=== PATIENT | male | born 1955 | race Caucasian/White ===

== ENCOUNTER → 2018-08-19 | Outpatient (CLI) | payer OTHER ==
--- NOTE | 2018-08-20 07:45 | XR ---
EXAMINATION TYPE: XR knee complete RT DATE OF EXAM: 08/19/2018 CLINICAL HISTORY: Intermittent right knee pain TECHNIQUE: Three views of the right knee are obtained. COMPARISON: None. FINDINGS: There is no acute fracture/dislocation evident in right knee. Old healed fracture deformit y is seen of the proximal fibula. The tri-compartment joint spaces appear preserved although there is mild tibial plateau sclerosis of both the medial and lateral compartment. The overlying soft tissue appears unremarkable. IMPRESSION: There is no acute fracture or dislocation in the right knee. Very mild bicompartmental a rthropathy of the right knee.
== END ==
LOC: RADXRYALE 16:43
PROVIDERS: ATTEND Physician Assistant Medical
DX: M17.11 Unilateral primary osteoarthritis, right knee (principal)

== ENCOUNTER 2019-01-27 10:00 | Day surgery (SDC) | payer OTHER ==
[2019-01-27] MEDS ORDERED: ONDANSETRON 4 MG/2 ML VIAL IVP ONE (10:20)
[2019-01-27] MEDS ORDERED: HYDROmorphone 0.5 MG/0.5 ML SYRINGE IVP PRN (10:20)
[2019-01-27] MEDS ORDERED: MIDAZOLAM 2 MG/2 ML VIAL IV PRN (10:20)
[2019-01-27] MEDS ORDERED: LIDOCAINE 1% 20 ML VIAL (10MG/ML) FOR IV START INTRADERMA PRN (10:20)
[2019-01-27] MEDS ORDERED: SCOPOLAMINE 1.5MG/72HR PATCH TRANSDERM ONE (10:20)
[2019-01-27] MEDS ORDERED: LACTATED RINGERS 1,000 ML IV SCH (10:20)
[2019-01-27] MEDS ORDERED: DEXAMETHASONE SOD PHOSPHATE 10 MG/ML 1 ML VIAL IV ONE (10:20)
[2019-01-27 10:28] VITALS: RESP 16; TEMP 97.9
[2019-01-27 10:28] LABS: Glucose,Whole Blood 95 mg/dL (75-99)
[2019-01-27] MEDS ORDERED: HEPARIN SODIUM,PORCINE 5,000 UNIT/ML 1 ML VIAL SQ ONE (10:38)
--- NOTE | 2019-01-27 11:19 | P.GSHP ---
History of Present Illness H&P Date: 01/27/19 Chief Complaint: Right abdominal wall lipoma This is a 63-year-old male who presents today for excision of a right abdominal wall lipoma. The lipoma measures approximately 13 cm in diameter. It is located on his lateral right abdominal wall. Past Medical History Past Medical History: Diabetes Mellitus Additional Past Medical History / Comment(s): GOUT History of Any Multi-Drug Resistant Organisms: None Reported Past Surgical History: Tonsillectomy Additional Past Surgical History / Comment(s): VASECTOMY Past Anesthesia/Blood Transfusion Reactions: No Reported Reaction Past Psychological History: No Psychological Hx Reported Smoking Status: Former smoker Past Alcohol Use History: None Reported, Rare Past Drug Use History: None Reported Medications and Allergies Home Medications Medication Instructions Recorded Confirmed Type Atorvastatin [Lipitor] 20 mg PO DAILY 01/27/19 01/27/19 History Cholecalciferol [Vitamin D3 (25 3 tablet PO DAILY 01/27/19 01/27/19 History Mcg = 1000 Iu)] Lisinopril 20 mg PO DAILY 01/27/19 01/27/19 History Pioglitazone [Actos] 45 mg PO DAILY 01/27/19 01/27/19 History metFORMIN HCL 1 tab PO BID 01/27/19 01/27/19 History Allergies Allergy/AdvReac Type Severity Reaction Status Date / Time bee pollen Allergy Swelling Verified 01/27/19 10:18 nylon Allergy Swelling Verified 01/27/19 10:18 Surgical - Exam Vital Signs Temp Pulse Resp BP Pulse Ox 97.9 F 59 L 16 137/63 97 01/27/19 10:26 01/27/19 10:26 01/27/19 10:26 01/27/19 10:26 01/27/19 10:26 - General well developed, well nourished, no distress - Eyes PERRL - ENT normal pinna - Neck no masses - Respiratory normal expansion - Cardiovascular Rhythm: regular - Abdomen Abdomen: soft, non tender - Integumentary 13 cm abdominal wall lipoma located in the right lateral abdominal wall.
[2019-01-27] MEDS ORDERED: BUPIVACAINE (PF) 0.5% 30 ML VIAL SQ ONE ×2 (11:28→12:04)
[2019-01-27] MEDS ORDERED: MIDAZOLAM 2 MG/2 ML VIAL ONE (11:35)
[2019-01-27] MEDS ORDERED: fentaNYL (PF) 50 MCG/ML 2 ML AMP ONE (11:35)
[2019-01-27] MEDS ORDERED: KETAMINE 10 MG/ML 20 ML VIAL ONE (11:35)
[2019-01-27] MEDS ORDERED: PROPOFOL 10 MG/ML 20 ML VIAL IV ONE (11:35)
[2019-01-27] MEDS ORDERED: SODIUM CHLORIDE 0.9% 100 ML with ceFAZolin 2,000 MG IV ONE ×2 (11:42)
--- NOTE | 2019-01-27 12:23 | P.OP ---
Date of Procedure: 01/27/19 Preoperative Diagnosis: Abdominal wall lipoma Postoperative Diagnosis: W abdominal wall lipoma all lipoma Procedure(s) Performed: Excision of abdominal wall lipoma Anesthesia: KAMILLA Surgeon: Adalid Abbott Estimated Blood Loss (ml): 5 Pathology: none sent Condition: stable Disposition: PACU Description of Procedure: The patient's placed on the operative table in the lateral position. He received IV sedation. The lipoma measured prostate 15 cm diameter. The skin was anesthetized 1% local Xylocaine. Using a 15 blade the skin was incised. And then using left cautery and blunt dissection the lipoma was dissected free. The Bovie was used for hemostasis. A YANET drains placed through separate stab incision. Skin was closed terell. The drain secured with 2-0 nylon. The sterile dressing applied. Abdominal wall binder was applied. Patient top she will was sent to recovery in stable condition.
[2019-01-27 13:17] VITALS: BP 146/81; PULSE 75
== END 2019-01-27 13:30 | disposition home or self-care (01) ==
LOC: OR 10:00
PROVIDERS: ATTEND Surgery
DX: D17.1 Benign lipomatous neoplasm of skin and subcutaneous tissue of trunk (principal); E11.9 Type 2 diabetes mellitus without complications; M10.9 Gout, unspecified; Z79.899 Other long term (current) drug therapy; Z87.891 Personal history of nicotine dependence; Z91.030 Bee allergy status; Z91.048 Other nonmedicinal substance allergy status; I10 Essential (primary) hypertension; E78.5 Hyperlipidemia, unspecified; Z79.84 Long term (current) use of oral hypoglycemic drugs
CPT/HCPCS: 88304; 11406; J2250; J1644; J1100; J2405; J0690; J3010; J2704

== ENCOUNTER → 2021-04-08 | Outpatient (CLI) | payer MEDICARE, OTHER ==
--- NOTE | 2021-04-08 10:34 | XR ---
EXAMINATION TYPE: XR ribs bilat w pa chest xray DATE OF EXAM: 04/08/2021 COMPARISON: NONE HISTORY: Pain TECHNIQUE: Single view of the chest bilateral views of the ribs are submitted. FINDINGS: Mild pleural thickening noted on the right at the approximate sixth rib level. No Evidence for pneumothorax. No evidence for focal contusion. Mediastinal structures are midline. Evaluation of the ribs fails to demonstrate evidence for displaced rib fracture or secondary sign of rib fractur e. IMPRESSION: No displaced rib fracture identified.
== END | disposition home or self-care (01) ==
LOC: RADXRYALE 10:08
PROVIDERS: ATTEND Family Medicine
DX: R07.81 Pleurodynia (principal)
CPT/HCPCS: 71111

== ENCOUNTER → 2022-09-08 | Outpatient (CLI) | payer MEDICARE ==
--- NOTE | 2022-09-08 09:52 | XR ---
EXAMINATION TYPE: XR knee complete LT DATE OF EXAM: 09/08/2022 9:48 AM INDICATION: Patient age:Male; 67 years old; Reason for study: [id number] LT KNEE PAIN; [facility]. COMPARISON: None. TECHNIQUE: The Left knee(s) was examined in frontal, lateral, and oblique projections. FINDINGS: No evidence of any acute osseous pathology, joint space narrowing, soft tissue swelling, or joint effusion is noted. No significant osteophytosis. IMPRESSION: No acute osseous pathology.
== END | disposition home or self-care (01) ==
LOC: RADXRYALE 09:27
PROVIDERS: ATTEND Family Medicine
DX: M25.562 Pain in left knee (principal)

== ENCOUNTER → 2023-03-25 | Outpatient (CLI) | payer MEDICARE ==
--- NOTE | 2023-03-26 08:20 | CT ---
EXAMINATION TYPE: CT left knee - [facility] Protocol DATE OF EXAM: 03/25/2023 COMPARISON: X-ray 09/08/2022 HISTORY: osteoarthritis CT DLP: 2011 mGycm Technique: Axial, sagittal and coronal images are obtained. Findings: There is severe narrowing of the medial compartment knee joint. Mild narrowing lateral compartment. L arge suprapatellar bursal fluid collection. Cystic change involving the medial tibial plateau just ma rgin of the femoral condyle related small osteochondral or microtrabecular fractures. Vacuum changes within bilateral SI joint. Mild concentric narrowing of the hip joint. Tiny cystic tess nge involving the distal tibia likely postarthritic. Small osteochondral defect in the differential d iagnosis. There is subcutaneous varicosities. Diverticulosis colon. IMPRESSION: 1. Severe medial compartment osteoarthritis. Slight depression of the medial tibial plateau which an cystic changes involving the medial femoral condyle and the vasospastic enteritis. Correlate clinical ly to exclude microtrabecular fracture.
== END | disposition home or self-care (01) ==
LOC: RADCTMAIN 16:01
PROVIDERS: ATTEND Orthopaedic Surgery
DX: M17.12 Unilateral primary osteoarthritis, left knee (principal); K52.9 Noninfective gastroenteritis and colitis, unspecified

== ENCOUNTER → 2023-04-09 | Outpatient (CLI) | payer MEDICARE ==
[2023-04-09 11:10] LABS: Appearance,Urine Clear (Clear); Bilirubin,Urine Negative (Negative); Blood,Urine Negative (Negative); Color,Urine Light Yellow; Glucose,Urine (UA) Negative (Negative); Ketones,Urine Negative (Negative); Leukocyte Esterase,Urine Negative (Negative); Nitrite,Urine Negative (Negative); Protein,Urine Negative (Negative); Specific Gravity,Urine 1.019 (1.001-1.035); Urobilinogen,Urine <2.0 mg/dL (<2.0)
[2023-04-09 11:18] LABS: Partial Thromboplastin Time 25.1 sec (22.0-30.0); Prothrombin Time 10.6 sec (9.0-12.0)
[2023-04-09 16:24] LABS: ALT 19 U/L (10-49); AST 20 U/L (14-35); Albumin 4.6 d/dL (3.8-4.9); Albumin/Globulin Ratio 1.84 Ratio (1.60-3.17); Alkaline Phosphatase 66 U/L (41-126); Calcium 9.8 mg/dL (8.7-10.3); Carbon Dioxide 29.3 mmol/L (21.6-31.8); Chloride 100 mmol/L (96-109); Globulin 2.5 d/dL (1.6-3.3); Glucose 102 mg/dL (70-110); Potassium 4.2 mmol/L (3.5-5.5); Sodium 141 mmol/L (135-145); Total Bilirubin 0.4 mg/dL (0.3-1.2); Total Protein 7.1 d/dL (6.2-8.2)
[2023-04-09 16:48] LABS: HCT 41.5 % (39.6-50.0); HGB 13.2 d/dL (13.0-17.0); MCHC 31.8 d/dL (32.0-37.0); MCV 97.4 FL (80.0-97.0); Mean Platelet Volume 11.1 FL (9.5-12.2); NRBC Per 100 WBC 0 X 10*3/uL (0.00-0.01); Platelet Count 207 X 10*3/uL (140-440); RBC 4.26 X 10*6/uL (4.40-5.60); RDW 15.4 % (11.5-14.5)
== END | disposition home or self-care (01) ==
LOC: LABPAT 10:09
PROVIDERS: ATTEND Orthopaedic Surgery
DX: Z01.818 Encounter for other preprocedural examination (principal); E11.9 Type 2 diabetes mellitus without complications; M17.12 Unilateral primary osteoarthritis, left knee; R94.31 Abnormal electrocardiogram [ECG] [EKG]
CPT/HCPCS: 80053; 81003; 83036; 85027; 85610; 85730; 87070; 93005

== ENCOUNTER 2023-04-24 05:43 | Day surgery (SDC) | payer MEDICARE ==
[~2023-04-24 05:43] MED LIST: ceFAZolin 3 GM in SODIUM CHLORIDE 0.9% 100 ML IVPB PRN
[2023-04-24] MEDS ORDERED: LIDOCAINE 1% (10MG/ML) FOR IV START INTRADERMA PRN (05:48)
[2023-04-24] MEDS ORDERED: LACTATED RINGERS 1,000 ML IV SCH (05:48)
[2023-04-24] MEDS ORDERED: TRANEXAMIC 1,000 MG/100ML-NACL 1,000 MG in SALINE 1 100ML.BAG IV PRN (06:00)
[2023-04-24] MEDS ORDERED: ACETAMINOPHEN TAB 500 MG TAB PO PRN (06:00)
[2023-04-24] MEDS ORDERED: oxyCODONE ER 10 MG TAB.ER.12H PO PRN (06:00)
[2023-04-24] MEDS ORDERED: FAMOTIDINE 20 MG/2 ML VIAL IVP PRN (06:00)
[2023-04-24] MEDS ORDERED: TRANEXAMIC 1,000 MG/100ML-NACL 1,000 MG in SALINE 1 100ML.BAG IVPB PRN (06:00)
[2023-04-24] MEDS ORDERED: DEXAMETHASONE SOD PHOSPHATE 10 MG/ML 1 ML VIAL IV PRN (06:00)
[2023-04-24] MEDS ORDERED: ONDANSETRON 4 MG/2 ML VIAL IVP PRN (06:00)
[2023-04-24] MEDS ORDERED: DOCUSATE 100 MG CAP PO PRN (06:00)
[2023-04-24] MEDS ORDERED: KETOROLAC 15 MG/ML 1 ML VIAL IVP PRN (06:00)
[2023-04-24 06:42] LABS: Glucose,Whole Blood 112 mg/dL (70-110)
[2023-04-24] MEDS ORDERED: HYDROmorphone 0.5 MG/0.5 ML SYRINGE IVP PRN ×4 (07:00→09:43)
[2023-04-24] MEDS ORDERED: MIDAZOLAM 2 MG/2 ML VIAL IV PRN (07:00)
[2023-04-24] MEDS ORDERED: PHENYLEPHRINE-0.9% NACL SYG 1,000 MCG/10 ML SYRINGE ONE (07:04)
[2023-04-24] MEDS ORDERED: HYDROmorphone (PF) 1 MG/ML ONE (07:04)
[2023-04-24] MEDS ORDERED: ROCURONIUM 10 MG/ML (5 ML VIAL) IV ONE (07:04)
[2023-04-24] MEDS ORDERED: PROPOFOL 10 MG/ML 20 ML VIAL IV ONE (07:04)
[2023-04-24] MEDS ORDERED: SUCCINYLCHOLINE CHLORIDE 200 MG/10 ML VIAL IV ONE (07:04)
[2023-04-24] MEDS ORDERED: fentaNYL (PF) 50 MCG/ML 2 ML AMP ONE (07:04)
[2023-04-24] MEDS ORDERED: GLYCOPYRROLATE 0.2 MG/ML 2 ML VIAL ONE (07:04)
[2023-04-24] MEDS ORDERED: DEXAMETHASONE SOD PHOSPHATE 10 MG/ML 1 ML VIAL ONE (07:04)
[2023-04-24] MEDS ORDERED: NEOSTIGMINE 1 MG/ML 10 ML VIAL ONE (07:04)
[2023-04-24] MEDS ORDERED: LIDOCAINE 2% INJ 20 MG/ML (2 ML VIAL) ONE (07:04)
[2023-04-24] MEDS ORDERED: ROPIVACAINE 5 MG/ML 30 ML VIAL ONE (07:04)
[2023-04-24] MEDS: ROPIVACAINE/EPI/CLONIDINE/KET 50 ML SYRINGE MISCELLANE PRN ×2 (07:48→08:48)
[2023-04-24] MEDS ORDERED: hydrOXYzine pamoate 25 MG CAP PO PRN (09:43)
[2023-04-24] MEDS ORDERED: NALOXONE 0.4 MG/ML 1 ML VIAL IV PRN (09:43)
[2023-04-24] MEDS ORDERED: HYDROcodone/APAP 5-325MG 1 EACH TAB PO PRN ×2 (09:43)
--- NOTE | 2023-04-24 09:47 | P.OP ---
Date of Procedure: 04/24/23 Preoperative Diagnosis: 1. Severe left knee osteoarthritis 2. BMI 42.8, morbid obesity 3. Type 2 diabetes Postoperative Diagnosis: Same Procedure(s) Performed: 1. Left total knee arthroplasty 2. Computer-assisted musculoskeletal navigation using CT images 3. Application of negative pressure incisional wound VAC less than 50 cm, left knee, incision measuring 18 cm Implants: 1. Nora Triathlon CR Femur Size #5 2. Nora [employer]lon [place] Tibial Base Size #5 3. Nora Triathlon CS poly Size #5, 10-mm 4. [place] Triathlon all poly patella, Size #32 Anesthesia: GETA, regional Surgeon: Francisco Javier Penaloza [employer] Officer #1: Elliot Don Estimated Blood Loss (ml): 200 IV fluids (ml): 1,000 Pathology: none sent Condition: stable Disposition: PACU Indications for Procedure: I met with the patient preoperatively in the office setting and discussed treatment of their symptomatic knee arthritis. They failed a long course of nonsurgical treatment and elected to proceed with an elective total knee replacement. I discussed the potential risks and complications at length and gave them ample time to ask questions. Risks discussed included: risks from anesthesia, superficial site surgical infection, acute and/or chronic periprosthetic joint infection, delayed wound healing, drainage, wound necrosis, instability, stiffness, stiffness requiring manipulation and/or revision surgery, damage to local blood vessels or nerves, aseptic loosening of the implants, extensor mechanism issues including disruption, patellar maltracking, avascular necrosis etc., continued or worsened knee pain, generalized dissatisfaction with surgical outcome, need for revision surgery, an inability to regain preinjury level of function, DVT, PE, other medical complications, and possibly loss of life or limb. The patient voiced their understanding that while these are the most common complications other less common complications are possible. They provided both their verbal and written consent to go forward with surgery. Operative Findings: Severe full-thickness cartilage loss medial compartment and partial-thickness cartilage loss in the patellofemoral and lateral compartments Description of Procedure: The patient was identified in preoperative holding and the correct operative extremity was verified and marked with a marker. I reviewed the consent form with the patient at length. All of their questions were answered. The patient was given a block by anesthesia. They were then brought back to the operating room. They were transferred onto the operating room table where a general anesthetic, preoperative antibiotics, and tranexamic acid were administered by anesthesia. A tourniquet was applied to the proximal aspect of the operative extremity. The contralateral extremity was padded under the heel and secured to the operating room table with a nonsterile blue towel and tape. The ipsilateral arm was carefully draped across the patient's chest and secured with a pillow and foam. A post was applied over the lateral aspect of the ipsilateral thigh and a bolster was placed under the ipsilateral foot. I verified that the oper ative extremity was stable and the knee was flexed to 90. The operative extremity was then placed in a leg babcock, nonsterile drapes were applied, and the extremity was prepped and draped sterilely in the standard sterile fashion. Prior to starting surgery timeout was performed identifying the correct patient, operative extremity, and procedure. The leg was then elevated, exsanguinated with an Esmarch bandage, and the tourniquet was inflated. An anterior midline incision was made sharply with a scalpel. Once I had dissected deep to the superficial fascial layer medial and lateral flaps were elevated. A medial parapatellar arthrotomy was created. Upon opening the knee joint there were diffuse arthritic changes in all 3 compartments. The anterior horn of the medial meniscus were sharply released and a medial release was performed around the posterior medial corner of the knee to facilitate retractor placement. The fat pad was excised with electrocautery. The patella was found to be severely arthritic and a provisional cut was made with a sagittal saw to facilitate mobilization of the extensor mechanism during the procedure. Remnants of the ACL and PCL were then excised from the notch. 4 mm pins were then placed within the incision in the medial distal femur and proximal tibia. Arrays were applied to the pins and I verified they were completely tightened. The knee was then registered with the [employer] ([employer]) robot and manipulations in implant position were made to balance the knee and opitmize implant position. Using the [employer] ([employer]) robotic saw all cuts were made in accordance with our plan. After all bony fragments had been removed the cuts were verified with the planar probe. The tibia was then subluxed forward and sized. The knee was brought into flexion and a lamina tilt wall supervisor was placed to allow removal of the meniscal remnants both medially and laterally as well as posterior osteophytes. Local anesthetic was then infiltrated around the joint capsule. Trial implants were then placed within the knee. Range of motion and collateral ligament tension was then evaluated. Adjustments in implant size and position were then made accordingly. Once the knee was felt to be appropriately balanced the Edmond pins were removed. The patella was then recut, sized, and punched. A trial patellar button was then placed. With the trial components in place, the patella tracked midline. The femur was then drilled and the trial component removed. The trial tibial component was then appropriately rotated, pinned, and prepared for the keel. All trial components were then removed from the knee. The knee was thoroughly irrigated with pulsatile lavage. Cement was prepared via vacuum mixing in a bowl on the back table. I then hand pressurized cement into the femur and tibia and placed the implants beginning with the tibial base tray and poly liner, femoral component, and finally the patellar button. All extruded cement was removed including from the pin sites. Once the cement had hardened the knee was evaluated one final time with the final polyethylene liner in place. The knee had full extension and flexion and felt stable to varus and valgus stress throu ghout the arc of motion. The tourniquet was released and with the tourniquet down the patella tracked midline. All bleeders were controlled with electrocautery. The knee was then soaked for 3 minutes with a dilute Betadine soak. The knee was thoroughly irrigated using 3 L of sterile saline and pulsatile lavage. A deep drain was placed. The extensor mechanism was then reapproximated using pop off Vicryl sutures followed by a running barbed suture. The knee was then closed in layers with a 0 strata fix for the deep fascial layer, 2-0 strata fix for the superficial subcutaneous layer and Monocryl and Steri-Strips for the skin. A sterile dressing and drain sponge were applied. Due to the patient's body habitus I elected to use an incisional wound VAC which was applied over the closed incision. I verified that all instrument, sponge, and sharp counts were correct. The patient was then transferred off the operating room table, extubated, and brought to recovery having tolerated the procedure well. Elliot Don PA-C was required as a skilled library services assistant due to the complexity of the procedure for patient positioning, draping, retraction, placement of hardware, and closure of wound. PLAN: The patient can weight-bear as tolerated on the operative extremity. DVT prophylaxis with aspirin 81 mg twice a day based on preoperative risk stratification. Follow-up in the office in 2 weeks for wound check and x-rays of the knee including an AP and lateral.
[2023-04-24 09:49] LABS: Glucose,Whole Blood 213 mg/dL (70-110)
--- NOTE | 2023-04-24 10:17 | XR ---
EXAMINATION TYPE: XR knee limited LT DATE OF EXAM: 04/24/2023 CLINICAL HISTORY: Postoperative evaluation Two views of the left knee are submitted. Identified are changes of total knee arthroplasty with fem oral and tibial components appearing well seated. Postsurgical soft tissue changes are noted. Align ment is anatomic.
[2023-04-24] MEDS: LACTATED RINGERS 1,000 ML IV SCH ×2 (11:06→21:06)
[2023-04-24 11:25] LABS: Glucose,Whole Blood 191 mg/dL (70-110)
[2023-04-24] MEDS ORDERED: DEXTROSE 50% SYRINGE 50 ML IVP PRN ×2 (12:39)
--- NOTE | 2023-04-24 13:16 | P.ANPRN ---
Procedure Note - Anesthesia - Nerve Block Performed Left Adductor Canal Single Time Out Performed: Yes Date of Procedure: 04/24/23 Procedure Start Time: :43 Procedure Stop Time: 06:46 Location of Patient: PreOp Indication: Acute Post-Operative Pain, Requested by Surgeon Sedation Type: Sedate with meaningful contact maintained Preparation: Sterile Prep Position: Supine Needle Types: Pajunk Needle Gauge: 21 Ultrasound used to visualize needle placement: Yes Ultrasound used to observe medication spread: Yes Blood Aspirated: No Pain Paresthesia on Injection Noted: No Resistance on Injection: Normal Image Stored and Saved: Yes Events: Uneventful and Well Tolerated (Ropivacaine 0.5% 20 mL plus dexamethasone 4 mg)
--- NOTE | 2023-04-24 13:17 | P.ANPRN ---
Procedure Note - Anesthesia - Nerve Block Performed Left iPack Single Time Out Performed: Yes Date of Procedure: 04/24/23 Procedure Start Time: 06:47 Procedure Stop Time: 06:50 Location of Patient: PreOp Indication: Acute Post-Operative Pain, Requested by Surgeon Sedation Type: Sedate with meaningful contact maintained Preparation: Sterile Prep Position: Supine Needle Types: Pajunk Needle Gauge: 21 Ultrasound used to visualize needle placement: Yes Ultrasound used to observe medication spread: Yes Blood Aspirated: No Pain Paresthesia on Injection Noted: No Resistance on Injection: Normal Image Stored and Saved: Yes Events: Uneventful and Well Tolerated (Ropivacaine 0.5% 20 mL plus dexamethasone 4 mg)
--- NOTE | 2023-04-24 13:59 | P.CONS ---
History of Present Illness - Reason for Consult Consult date: 04/24/23 - History of Present Illness Patient is a 67-year-old male with history of hypertension, diabetes, dyslipidemia presenting for elective left knee arthroplasty. [facility] [place] [facility] has been consulted for medical management. Currently denies any chest pain, shortness of breath, abdominal pain, nausea, vomiting, urinary or bowel complaints. Does occasionally drink alcohol, denies any daily alcohol use. De nies smoking or illicit drug use. Pertinent positives and negatives as discussed in HPI, a complete review of systems was performed and all other systems are negative. Patient seen and examined at bedside. Vital signs reviewed General: nontoxic, no distress, appears at stated age, morbid obesity Derm: warm, dry, dressing clean, dry, intact Head: atraumatic, normocephalic, symmetric Eyes: EOMI, no lid lag, anicteric sclera, pupils equal round reactive to light ENT: Nose and ears atraumatic Neck: No thyromegaly, supple Mouth: no lip lesion, mucus membranes moist Cardiovascular: S1S2 reg, no murmur, no edema Lungs: clear to auscultation bilateral, no rhonchi, no rales, no wheeze, no accessory muscle use Abdominal: soft, nontender to palpation, no guarding, no appreciable organomegaly Ext: no gross muscle atrophy, muscle strength muscle strength 5 out of 5 in all 4 extremities, no contractures Neuro: CN II-XII grossly intact Psych: Alert, oriented, appropriate affect Assessment/Plan: Hypertension Dyslipidemia Type 2 diabetes Morbidly obese Status post left knee arthroplasty -Home medications reviewed and restarted -Diabetes medications held, started on sliding scale insulin -BMP and CBC pending for tomorrow -Pain control with oral [place], IV Dilaudid as needed -Okay to continue lactated Ringer -DVT prophylaxis: Aspirin 81 twice a day Thank you for allowing us to participate in the care of this pleasant patient. Do not hesitate to contact us with questions. Someone can be reached from the [facility] [place] [facility] hospitalist group all hours of the day at [phone] or via [employer]. Past Medical History Past Medical History: Diabetes Mellitus Additional Past Medical History / Comment(s): GOUT History of Any Multi-Drug Resistant Organisms: None Reported Past Surgical History: Joint Replacement, Orthopedic Surgery, Tonsillectomy Additional Past Surgical History / Comment(s): VASECTOMY, growth removed from rt thigh, left knee replacement Past Anesthesia/Blood Transfusion Reactions: No Reported Reaction Past Psychological History: No Psychological Hx Reported Smoking Status: Former smoker Past Alcohol Use History: None Reported Additional Past Alcohol Use History / Comment(s): quit 40 yrs ago Past Drug Use History: None Reported Medications and Allergies Home Medications Medication Instructions Recorded Confirmed Type Atorvastatin [Lipitor] 20 mg PO DAILY 01/27/19 04/22/23 History Cholecalciferol [Vitamin D3 (25 3 tablet PO DAILY 01/27/19 04/22/23 History Mcg = 1000 Iu)] Pioglitazone [Actos] 45 mg PO DAILY 01/27/19 04/22/23 History lisinopriL 20 mg PO DAILY 01/27/19 04/22/23 History metFORMIN HCL [Glucophage] 1 tab PO BID 01/27/19 04/22/23 History Meloxicam [Mobic] 15 mg PO DAILY 04/22/23 04/22/23 History Aspirin 81 mg PO BID 30 Days #60 tab 04/24/23 Rx Diclofenac Sodium [Voltaren] 75 mg PO BID 30 Days #60 tab 04/24/23 Rx Docusate [Colace] 100 mg PO BID #60 capsule 04/24/23 Rx Doxycycline Monohydrate 100 mg PO 14 #28 cap 04/24/23 Rx HYDROcodone/APAP 5-325MG [[place] 1 - 2 tab PO Q6HR PRN 7 Days #32 04/24/23 Rx 5-325] tab Omeprazole 40 mg PO DAILY 30 Days #30 cap 04/24/23 Rx Allergies Allergy/AdvReac Type Severity Reaction Status Date / Time bee pollen Allergy Swelling Verified 04/22/23 16:34 nylon Allergy Swelling Verified 04/22/23 16:34 Physical Exam Vitals: Vital Signs Temp Pulse Pulse Resp BP BP Pulse Ox 04/24/23 12:10 89 109/72 93 L 04/24/23 11:45 90 108/62 94 L 04/24/23 11:30 88 104/69 91 L 04/24/23 11:26 98.9 F 88 18 103/69 90 L 04/24/23 11:00 85 16 102/55 94 L 04/24/23 10:45 87 16 105/54 94 L 04/24/23 10:30 87 16 118/57 97 04/24/23 10:15 89 16 130/62 95 09/15/23 09:57 89 16 126/60 97 04/24/23 09:42 97.4 F L 112 H 16 156/78 94 L 04/24/23 06:50 80 16 122/61 97 04/24/23 06:07 97.4 F L 92 16 115/55 96 Intake and Output 04/23/23 04/24/23 04/24/23 22:59 06:59 14:59 Intake Total 200 800 Output Total 200 Balance 200 600 Intake: IV 200 800 Output: Estimated Blood Loss 200 Other: Weight 127.7 kg 127.7 kg Results Labs: Abnormal Lab Results - Last 24 Hours (Table) 04/24/23 04/24/23 04/24/23 Range/Units 06:24 09:48 11:22 POC Glucose (mg/dL) 112 H 213 H 191 H (70-110) mg/dL
[2023-04-24] MEDS: ceFAZolin 3 GM in SODIUM CHLORIDE 0.9% 100 ML IVPB SCH ×2 (15:04→22:16)
[2023-04-24 16:03] LABS: Glucose,Whole Blood 190 mg/dL (70-110)
[2023-04-24] MEDS: INSULIN ASPART (NovoLOG) 100 UNIT/ML VIAL SQ SCH ×2 (17:32→21:17)
[2023-04-24 20:48] LABS: Glucose,Whole Blood 173 mg/dL (70-110)
[2023-04-24] MEDS ORDERED: SENNOSIDES-DOCUSATE SODIUM 1 EACH TAB PO SCH (21:00)
[2023-04-24] MEDS: ASPIRIN 81 MG PO SCH (21:17)
[2023-04-24 22:47] VITALS: RESP 16
[2023-04-25] MEDS: LACTATED RINGERS 1,000 ML IV SCH (05:35)
[2023-04-25] MEDS: INSULIN ASPART (NovoLOG) 100 UNIT/ML VIAL SQ SCH (05:35)
[2023-04-25 05:41] LABS: Glucose,Whole Blood 133 mg/dL (70-110)
[2023-04-25 06:31] LABS: African American GFR (CKD) 86 (>60 ml/min/1.73 sqM); Anion Gap 8 mmol/L; Blood Urea Nitrogen 24 mg/dL (9-20); Calcium 9.1 mg/dL (8.4-10.2); Carbon Dioxide 28 mmol/L (22-30); Chloride 101 mmol/L (98-107); Glucose 123 mg/dL (74-99); Non-African American GFR(CKD) 74 (>60 ml/min/1.73 sqM); Potassium 4.4 mmol/L (3.5-5.1); Sodium 137 mmol/L (137-145)
[2023-04-25] MEDS: ASPIRIN 81 MG PO SCH (08:22)
[2023-04-25] MEDS ORDERED: CHOLECALCIFEROL 25 MCG (1000 IU) TABLET PO SCH (09:00)
[2023-04-25] MEDS ORDERED: ATORVASTATIN 20 MG TAB PO SCH (09:00)
[2023-04-25] MEDS ORDERED: lisinopriL 20 MG TAB PO SCH (09:00)
--- NOTE | 2023-04-25 09:06 | P.PN ---
Subjective Progress Note Date: 04/25/23 Patient did well overnight. He has some mild discomfort in his left knee this morning. He has been up several times to walk to the bathroom without too much difficulty. He denies chest pain or shortness of breath this morning. Objective - Vital Signs Vital signs: Vital Signs Temp 98.7 F 04/25/23 02:00 Pulse 91 04/25/23 02:00 Resp 16 04/25/23 02:00 BP 101/59 04/25/23 02:00 Pulse Ox 97 04/25/23 02:00 FiO2 Intake & Output 04/24/23 04/25/23 04/25/23 18:59 06:59 18:59 Intake Total 1700 Output Total 200 130 Balance 1500 -130 Weight 127.7 kg Intake: IV 800 Intake, IV Titration 900 Amount Lactated Ringers 1,000 ml 800 @ 100 mls/hr IV .Q10H SITA Rx#:[id number] ceFAZolin 3 gm In Sodium 100 Chloride 0.9% 100 ml @ 200 mls/hr IVPB Q8H S[facility] Rx#:[id number] Output: Drainage 130 Left Knee 130 Estimated Blood Loss 200 Other: # Voids 3 - Exam The patient is resting comfortably in his bed. He is alert and able to answer questions. A focused exam of the left lower extremity was conducted. There is an incisional wound VAC over the anterior aspect of the knee with good seal. His drain was removed without difficulty. His thigh and calf are minimally tender and soft. He is able to fire his femoral nerve. Distally motor and sensory function are intact in the left foot. The foot is warm and well perfused with brisk capillary refill - Labs CBC & Chem 7: 04/25/23 05:24 Labs: Abnormal Lab Results - Last 24 Hours (Table) 04/24/23 04/24/23 04/24/23 Range/Units 09:48 11:22 16:01 BUN (9-20) mg/dL Glucose (74-99) mg/dL POC Glucose (mg/dL) 213 H 191 H 190 H (70-110) mg/dL 04/24/23 04/25/23 04/25/23 Range/Units 20:47 05:24 05:34 BUN 24 H (9-20) mg/dL Glucose 123 H (74-99) mg/dL POC Glucose (mg/dL) 173 H 133 H (70-110) mg/dL Assessment and Plan Assessment: Postoperative day #1 status post left total knee arthroplasty and incisional wound VAC placement Type 2 diabetes Morbid obesity with BMI 42.8 Plan: 1. Weight-bear as tolerated left lower extremity, up with assistance 2. DVT prophylaxis with aspirin 81 mg twice a day 4 weeks 3. Doses of postoperative antibiotics followed by 2 weeks of doxycycline 100 mg twice a day due to patient's body habitus and type 2 diabetes 4. Appreciate internal medicine's assistant department manager with perioperative medical management 5. Physical therapy 6. Dispo: Discharge home later today when passes physical therapy and pain is controlled
--- NOTE | 2023-04-25 09:08 | P.DS ---
Providers Date of admission: 04/24/2023 Attending physician: Francisco Javier Penaloza Consults: 04/24/23 09:43 Consult Physician Routine Consulting Provider: Korin Proctor Consult Reason/Comments: medical management Do you want consulting provider notified?: Yes [facility] Course: The patient is a very pleasant 67-year-old male who was admitted under my care yesterday. He underwent an uncomplicated total knee replacement and was then admitted to the orthopedic floor. He was transitioned from IV to oral pain medication. He was given 2 doses of postoperative antibiotics for surgical prophylaxis. He was treated with aspirin 81 mg twice a day for DVT prophylaxis. He was seen and evaluated by internal medicine. He worked with physical therapy. He was ultimately discharged home on postoperative day #1. Plan - Discharge Summary Discharge Rx Participant: No New Discharge Prescriptions: New HYDROcodone/APAP 5-325MG [[place] 5-325] 1 - 2 tab PO Q6HR PRN 7 Days #32 tab PRN Reason: Pain Diclofenac Sodium [Voltaren] 75 mg PO BID 30 Days #60 tab Doxycycline Monohydrate 100 mg PO 14 #28 cap Aspirin 81 mg PO BID 30 Days #60 tab Docusate [Colace] 100 mg PO BID #60 capsule Omeprazole 40 mg PO DAILY 30 Days #30 cap No Action lisinopriL 20 mg PO DAILY Atorvastatin [Lipitor] 20 mg PO DAILY Pioglitazone [Actos] 45 mg PO DAILY metFORMIN HCL [Glucophage] 1 tab PO BID Cholecalciferol [Vitamin D3 (25 Mcg = 1000 Iu)] 3 tablet PO DAILY Meloxicam [Mobic] 15 mg PO DAILY Discharge Medication List Atorvastatin [Lipitor] 20 mg PO DAILY 01/27/19 [History] Cholecalciferol [Vitamin D3 (25 Mcg = 1000 Iu)] 3 tablet PO DAILY 01/27/19 [History] Pioglitazone [Actos] 45 mg PO DAILY 01/27/19 [History] lisinopriL 20 mg PO DAILY 01/27/19 [History] metFORMIN HCL [Glucophage] 1 tab PO BID 01/27/19 [History] Meloxicam [Mobic] 15 mg PO DAILY 04/22/23 [History] Aspirin 81 mg PO BID 30 Days #60 tab 04/24/23 [Rx] Diclofenac Sodium [Voltaren] 75 mg PO BID 30 Days #60 tab 04/24/23 [Rx] Docusate [Colace] 100 mg PO BID #60 capsule 04/24/23 [Rx] Doxycycline Monohydrate 100 mg PO 14 #28 cap 04/24/23 [Rx] HYDROcodone/APAP 5-325MG [[place] 5-325] 1 - 2 tab PO Q6HR PRN 7 Days #32 tab 04/24/23 [Rx] Omeprazole 40 mg PO DAILY 30 Days #30 cap 04/24/23 [Rx] Follow up Appointment(s)/Referral(s): Residential Home[facility] [NON-STAFF] - 1-2 Days Francisco Javier Penaloza MD [Medical Doctor] - 2 Weeks Patient Instructions/Handouts: Knee Replacement (DC) Activity/Diet/Wound Care/Special Instructions: Weight bear to tolerance on operative extremity with a walker. Keep Prevena wound vac in place. Do not remove. Call the office with any questions regarding the wound vac. Take pain medications as needed. Take aspirin 81mg BID x 4 weeks for blood clot prevention.Take antibiotics as prescribed. Follow-up in the office in two weeks at [facility]. Call the office with any questions or concerns, Discharge Disposition: HOME WITH HOME HEALTH SERVICES
[2023-04-25 10:29] VITALS: BP 116/72; PULSE 77; TEMP 97.5
[2023-04-25 11:22] LABS: Basophils # (A) 0.03 X 10*3/uL (0.00-0.10); Basophils % (A) 0.2 %; Eosinophils # (A) 0.01 X 10*3/uL (0.04-0.35); Eosinophils % (A) 0.1 %; HCT 35.3 % (39.6-50.0); HGB 11.1 d/dL (13.0-17.0); Lymphocytes # (A) 1.17 X 10*3/uL (0.90-5.00); Lymphocytes % (A) 7.4 %; MCH 31.2 pg (27.0-32.0); MCHC 31.4 d/dL (32.0-37.0); MCV 99.2 FL (80.0-97.0); Monocytes # (A) 1.37 X 10*3/uL (0.20-1.00); Monocytes % (A) 8.7 %; NRBC Per 100 WBC 0 X 10*3/uL (0.00-0.01); Neutrophils # (A) 13.02 X 10*3/uL (1.80-7.70); Neutrophils % (A) 82.8 %; Platelet Count 220 X 10*3/uL (140-440); RBC 3.56 X 10*6/uL (4.40-5.60); RDW 14.6 % (11.5-14.5); WBC 15.73 X 10*3/uL (4.50-10.00)
[2023-04-25 11:45] LABS: Glucose,Whole Blood 118 mg/dL (70-110)
--- NOTE | 2023-04-25 13:44 | P.PN ---
Subjective Progress Note Date: 04/25/23 Hospital course: Patient is a very pleasant 67-year-old male with a past medical history of hypertension,type II spy-pvvsixh-jsfprixox diabetes mellitus, and hyperlipidemia. He is currently admitted under orthopedic surgery team status post elective left total knee arthroplasty completed by Dr. Penaloza on 04/24/23. We were consulted for medical management throughout patient's hospitalization. Physical exam: Vital signs reviewed and stable. General: Nontoxic, no distress and appears stated age. Derm: Skin warm and dry, normal coloration for ethnicity. Head: Atraumatic, normocephalic and symmetric. Eyes: EOMs intact, no lid lag, and anicteric sclera Mouth: no lip lesions, mucus membranes moist Cardiovascular: regular rate and rhythm with normal S1S2, no murmur, positive posterior tibial pulses bilaterally, and cap refill < 2 seconds. Lungs: Respirations even, regular, and unlabored on room air. Lungs CTA bilaterally, no rhonchi, no rales, no wheezing, and no accessory muscle usage. Abdominal: soft, nontender to palpation, no guarding, no appreciable organome ella Ext: No gross muscle atrophy, no edema, no contractures. Movement and sensation intact. Left knee postoperative dressing/Mckay wrap Neuro: Speech clear, face symmetrical and CN II-XII grossly intact with no noted focal neuro deficits Psych: Alert and oriented to person, place, time, and situation. Appropriate and pleasant affect. Assessment and Plan of Care: Acute Postoperative blood loss anemia Postoperative leukocytosis, reactive -Stable expected finding. Current hemoglobin of 11.1 with preoperative hemoglobin of 13.2. WBC count 15.73, reactive, no signs of infection. -No active bleeding noted, no need for transfusion or additional interventions or testing at this time. Status post left total knee arthroplasty -Management per primary admitting orthopedic surgery team including DVT prophylaxis, pain management, weightbearing, wound/dressing care, and PT/OT. Prerenal azotemia -BUN 24, likely secondary to mild dehydration as patient was nothing by mouth prior to surgical procedure. Patient eating and drinking well at this time, no need for further intervention. Hypertension Patient to continue daily medication regimen with lisinopril 20 mg daily. Hyperlipidemia Patient to continue with atorvastatin 20 mg daily. Type II sno-kfnrtzd-vfwszqkam diabetes mellitus. Hemoglobin A1c 6.2%. Patient to continue on glycemic protocol NovoLog sliding scale throughout hospitalization and to resume metformin and Pioglitazone upon discharge. Data review: Postoperative labs reviewed. CBC showing mild leukocytosis with WBC count of 15.73 and macrocytic anemia with hemoglobin of 11.1. BMP unremarkable with the exception of slightly elevated BUN of 24. Hemoglobin A1c 6.2%. Vital signs reviewed and stable. Blood pressure 116/72, heart rate 77, respiratory rate 16, temp 97.5F, SpO2 of 95% on room air. Patient cleared from medical perspective for discharge once cleared by primary admitting orthopedic surgery team. Thank you for allowing us to participate in the care of this pleasant patient. Do not hesitate to contact us with questions. Someone can be reached from the [facility] hospitalist group all hours of the day at [phone] or via [employer]. Patient was seen independently by Nurse Pracitioner. This document was prepared using [employer] dictation software. Please allow for errors in clinic cma, while rare they do occur. Objective - Vital Signs Vital signs: Vital Signs Temp 98.7 F 04/25/23 02:00 Pulse 91 04/25/23 02:00 Resp 16 04/25/23 02:00 BP 101/59 04/25/23 02:00 Pulse Ox 97 04/25/23 02:00 FiO2 Intake & Output 04/24/23 04/25/23 04/25/23 18:59 06:59 18:59 Intake Total 1700 Output Total 200 130 Balance 1500 -130 Weight 127.7 kg Intake: IV 800 Intake, IV Titration 900 Amount Lactated Ringers 1,000 ml 800 @ 100 mls/hr IV .Q10H SITA Rx#:[id number] ceFAZolin 3 gm In Sodium 100 Chloride 0.9% 100 ml @ 200 mls/hr IVPB Q8H SITA Rx#:[id number] Output: Drainage 130 Left Knee 130 Estimated Blood Loss 200 Other: # Voids 3 - Labs CBC & Chem 7: 04/25/23 05:24 04/25/23 05:24 Labs: Abnormal Lab Results - Last 24 Hours (Table) 04/24/23 04/24/23 04/24/23 Range/Units 09:48 11:22 16:01 BUN (9-20) mg/dL Glucose (74-99) mg/dL POC Glucose (mg/dL) 213 H 191 H 190 H (70-110) mg/dL 04/24/23 04/25/23 04/25/23 Range/Units 20:47 05:24 05:34 BUN 24 H (9-20) mg/dL Glucose 123 H (74-99) mg/dL POC Glucose (mg/dL) 173 H 133 H (70-110) mg/dL
== END 2023-04-25 13:51 | disposition home health service (06) ==
LOC: OR 05:43 → 4SSUR 09:02 → OR 04-25 13:51
PROVIDERS: ATTEND Orthopaedic Surgery
DX: M17.12 Unilateral primary osteoarthritis, left knee (principal); E66.01 Morbid (severe) obesity due to excess calories; E11.9 Type 2 diabetes mellitus without complications; E78.5 Hyperlipidemia, unspecified; I10 Essential (primary) hypertension; Z68.41 Body mass index [BMI] 40.0-44.9, adult; Z79.1 Long term (current) use of non-steroidal anti-inflammatories (NSAID); Z79.82 Long term (current) use of aspirin; Z79.84 Long term (current) use of oral hypoglycemic drugs; Z79.899 Other long term (current) drug therapy; Z87.891 Personal history of nicotine dependence; Z91.030 Bee allergy status; Z88.8 Allergy status to other drugs, medicaments and biological substances; Z96.652 Presence of left artificial knee joint
CPT/HCPCS: 0055T; 27447; 64447; 64999; 80048; 83036; 85025; 94760

== ENCOUNTER → 2023-09-08 | Outpatient (CLI) | payer OTHER ==
[2023-09-08 22:40] LABS: Appearance,BF Cloudy; Color,BF Pink; Nucleated Cells, Body Fluid 75000 /uL; RBC, Body Fluid 31500 /uL
[2023-09-08 22:43] LABS: Mononuclear WBC,Body Fluid 5 %; Polynuclear WBC,Body Fluid 95 %; Total Cells Counted,Body Fluid 100
== END | disposition home or self-care (01) ==
LOC: LABWHC1 15:16
PROVIDERS: ATTEND Orthopaedic Surgery
DX: M25.562 Pain in left knee (principal); M10.9 Gout, unspecified; M25.462 Effusion, left knee; T84.84XA Pain due to internal orthopedic prosthetic devices, implants and grafts, initial encounter; Z47.1 Aftercare following joint replacement surgery; Z96.652 Presence of left artificial knee joint
CPT/HCPCS: 36415; 85652; 86140; 87070; 87075; 87205; 89050

== ENCOUNTER → 2023-09-21 | Outpatient (CLI) | payer MEDICARE ==
[2023-09-21 12:10] LABS: INR 1.3 (<1.2); Prothrombin Time 13.5 sec (10.0-12.5)
[2023-09-21 15:52] LABS: BUN/Creat Ratio 18.64 Ratio (12.00-20.00); Blood Urea Nitrogen 20.5 mg/dL (9.0-27.0); Carbon Dioxide 29.7 mmol/L (21.6-31.8); Chloride 98 mmol/L (96-109); Glucose 103 mg/dL (70-110); Potassium 4.9 mmol/L (3.5-5.5); Sodium 140 mmol/L (135-145)
[2023-09-21 15:53] LABS: ALT 19 U/L (10-49); AST 18 U/L (14-35); Albumin 4.1 g/dL (3.8-4.9); Albumin/Globulin Ratio 1.17 Ratio (1.60-3.17); Alkaline Phosphatase 118 U/L (41-126); Calcium 10.3 mg/dL (8.7-10.3); Globulin 3.5 g/dL (1.6-3.3); Total Bilirubin 0.3 mg/dL (0.3-1.2); Total Protein 7.6 g/dL (6.2-8.2)
[2023-09-21 16:18] LABS: HGB 11.4 g/dL (13.0-17.0); MCH 28.6 pg (27.0-32.0); MCHC 31.7 g/dL (32.0-37.0); MCV 90.5 FL (80.0-97.0); Mean Platelet Volume 9.7 FL (9.5-12.2); NRBC Per 100 WBC 0 X 10*3/uL (0.00-0.01); Platelet Count 375 X 10*3/uL (140-440); RBC 3.98 X 10*6/uL (4.40-5.60); RDW 14.5 % (11.5-14.5); WBC 8.28 X 10*3/uL (4.50-10.00)
== END | disposition home or self-care (01) ==
LOC: LABPAT 10:41
PROVIDERS: ATTEND Orthopaedic Surgery
DX: Z01.812 Encounter for preprocedural laboratory examination (principal); Z22.322 Carrier or suspected carrier of Methicillin resistant Staphylococcus aureus; M25.562 Pain in left knee; Z96.652 Presence of left artificial knee joint; R94.31 Abnormal electrocardiogram [ECG] [EKG]
CPT/HCPCS: 80053; 83036; 85027; 85610; 85730; 87070; 93005

== ENCOUNTER 2023-10-07 16:00 | Inpatient (IN) | payer MEDICARE ==
[2023-10-02 15:13] VITALS: BMI 42.0
[2023-10-08] MEDS ORDERED: ROPIVACAINE/EPI/CLONIDINE/KET 50 ML SYRINGE MISCELLANE PRN (05:00)
[2023-10-08] MEDS ORDERED: LIDOCAINE 1% (10MG/ML) FOR IV START INTRADERMA PRN (05:13)
[2023-10-08] MEDS ORDERED: TRANEXAMIC 1,000 MG/100ML-NACL 1,000 MG in SALINE 1 100ML.BAG IV PRN (06:00)
[2023-10-08] MEDS ORDERED: ONDANSETRON 4 MG/2 ML VIAL IVP PRN (06:00)
[2023-10-08] MEDS ORDERED: TRANEXAMIC 1,000 MG/100ML-NACL 1,000 MG in SALINE 1 100ML.BAG IVPB PRN (06:00)
[2023-10-08] MEDS: LACTATED RINGERS 1,000 ML IV ONE ×3 (06:20→12:00)
[2023-10-08 06:52] LABS: Glucose,Whole Blood 116 mg/dL (70-110)
[2023-10-08] MEDS ORDERED: HYDROmorphone 0.5 MG/0.5 ML SYRINGE IVP PRN ×3 (07:00→10:52)
[2023-10-08] MEDS ORDERED: MIDAZOLAM 2 MG/2 ML VIAL IV PRN (07:00)
[2023-10-08] MEDS: ONDANSETRON 4 MG/2 ML VIAL IVP ONE (07:01)
[2023-10-08] MEDS: oxyCODONE ER 10 MG TAB.ER.12H PO PRN (07:01)
[2023-10-08] MEDS: KETOROLAC 15 MG/ML 1 ML VIAL IVP PRN (07:01)
[2023-10-08] MEDS: DEXAMETHASONE SOD PHOSPHATE 10 MG/ML 1 ML VIAL IV PRN (07:01)
[2023-10-08] MEDS: ACETAMINOPHEN TAB 500 MG TAB PO PRN (07:01)
[2023-10-08] MEDS: DOCUSATE 100 MG CAP PO PRN (07:01)
[2023-10-08] MEDS: MIDAZOLAM 2 MG/2 ML VIAL IVP ONE (07:08)
[2023-10-08] MEDS: FAMOTIDINE 20 MG/2 ML VIAL IVP PRN (07:17)
[2023-10-08] MEDS ORDERED: fentaNYL (PF) 50 MCG/ML 2 ML AMP ONE (07:24)
[2023-10-08] MEDS ORDERED: GLYCOPYRROLATE 0.2 MG/ML 2 ML VIAL ONE (07:24)
[2023-10-08] MEDS ORDERED: ROCURONIUM 10 MG/ML (5 ML VIAL) IV ONE (07:24)
[2023-10-08] MEDS ORDERED: LIDOCAINE 1% INJ 10MG/ML (20 ML MDV) ONE (07:24)
[2023-10-08] MEDS ORDERED: NEOSTIGMINE 1 MG/ML 10 ML VIAL ONE (07:24)
[2023-10-08] MEDS ORDERED: DEXAMETHASONE SOD PHOSPHATE 4 MG/ML 1 ML VIAL ONE (07:24)
[2023-10-08] MEDS ORDERED: SUCCINYLCHOLINE CHLORIDE 200 MG/10 ML VIAL IV ONE (07:24)
[2023-10-08] MEDS ORDERED: TRANEXAMIC 1,000 MG/100ML-NACL PREMIX BAG ONE (07:24)
[2023-10-08] MEDS ORDERED: HYDROmorphone (PF) 1 MG/ML ONE (07:24)
[2023-10-08] MEDS ORDERED: PROPOFOL 10 MG/ML 20 ML VIAL IV ONE (07:24)
[2023-10-08] MEDS ORDERED: PHENYLEPHRINE-0.9% NACL SYG 1,000 MCG/10 ML SYRINGE ONE (07:24)
[2023-10-08] MEDS ORDERED: ROPIVACAINE 5 MG/ML 30 ML VIAL ONE (07:24)
[2023-10-08] MEDS: ceFAZolin 3 GM in SODIUM CHLORIDE 0.9% 100 ML IVPB PRN (07:29)
[2023-10-08] MEDS: VANCOMYCIN 1,000 MG VIAL MISCELLANE ONE (08:49)
[2023-10-08] MEDS: TOBRAMYCIN SULFATE 1.2 GM VIAL MISCELLANE ONE (09:47)
[2023-10-08] MEDS ORDERED: MAGNESIUM HYDROXIDE 2,400 MG/30 ML CUP PO PRN (10:52)
[2023-10-08] MEDS ORDERED: NA PHOS,M-B/NA PHOS,DI-BA 133 ML ENEMA RECTAL PRN (10:52)
[2023-10-08] MEDS ORDERED: bisacodyL 10 MG SUPP RECTAL PRN (10:52)
[2023-10-08] MEDS ORDERED: TEMAZEPAM 15 MG CAP PO PRN (10:52)
[2023-10-08] MEDS ORDERED: NALOXONE 0.4 MG/ML 1 ML VIAL IV PRN (10:52)
[2023-10-08] MEDS ORDERED: VANCOMYCIN IV PER PHARMACY 1 EACH MISC MISCELLANE PRN (10:57)
--- NOTE | 2023-10-08 11:06 | P.OP ---
Date of Procedure: 10/08/23 Preoperative Diagnosis: 1. Left chronic periprosthetic knee infection 2. BMI 41.7 3. Type 2 diabetes Postoperative Diagnosis: Same Procedure(s) Performed: 1. Manual preparation and insertion of drug delivery device, intra-articular, articulating spacer, left knee 2. Irrigation and excisional debridement using a scalpel of subcutaneous tissue, muscle, and bone and thigh and knee with radical synovectomy and 12 L saline pulsatile mechanical lavage 3. Application of negative pressure dressing, less than 50 cm, left knee, incision measuring 20 cm Modifier 22 for increased procedural complexity: Justification: This operation required significantly more time, work, and procedural complexity than a standard primary or revision total joint arthroplasty. Specifically the prior traumatic changes and or surgical procedure left a significantly altered surgical field with resultant scar tissue, adhesions, and altered anatomy that required a longer and more difficult and complex surgical dissection. This patient required: Extensile exposure requiring meticulous and extensive debridement due to prior failed surgery and contractures Technically demanding removal of prior hardware Significantly prolonged operative time Increased BMI (41.7) and challenging body habitus All of the above result in a physically and mentally challenging operative procedure that in my professional opinion necessitates a 30% increase above standard the schedule Implants: Nora triathlon size #5 PS femur [place] triathlon 13 mm TS poly Anesthesia: KAMILLA regional Surgeon: Francisco Javier Penaloza Finish Specialist #1: Solange Dang Estimated Blood Loss (ml): 200 IV fluids (ml): 600 Urine output (ml): 100 Pathology: other (Deep tissue and fluid cultures taken) Condition: stable Disposition: PACU Indications for Procedure: The patient is a very pleasant 68-year-old male who recently underwent a left total knee replacement. He did well initially both clinically and radiographica lly. His incision was well-healed with no sign of early infection or drainage. Several months ago he sustained a fall and has had increasing pain in his knee since that time. He presented to my office several weeks ago and was found to have a large effusion and a red swollen knee. His knee was aspirated and sent for cultures and cell count. His cell count came back with 75,000 white blood cells with a predominance of PMNs and his cultures grew staph epi. His inflammatory markers including sedimentation rate and CRP were both elevated. The fluid appeared purulent. Given all of this and based on his MSIS score his knee was considered infected. I discussed treatment options with the patient and his including a DAIR procedure, one-stage revision and two-stage revision. Given the length of time from surgery, the gross purulence aspirated and the patient's overall health my recommendation was for a two-stage revision. I discussed the procedure at length with both the patient and his in the office. Had a long discussion on the potential risks and complications including but not limited to risks from anesthesia, continued or worsened infection, failure of procedure requiring additional spacer placement, need for a static spacer, systemic infection, fracture, dislocation, stiffness, delayed wound healing, medical complications, failure of all above treatment requiring either an amputation or fusion and possibly . The patient and his understand these complications. They provided both her verbal and written consent to go forward with surgery. Operative Findings: It was gross purulence within the knee. All implants were well fixed. Multiple cultures were taken. Description of Procedure: The patient was identified in preoperative holding and the correct left leg was marked with my initials. I reviewed the consent form with the patient and his . All of their questions were answered. He was then brought back to the operating room by anesthesia. He was positioned on the OR table where a general anesthetic, preoperative antibiotics, and tranexamic acid were given. He also had a Knutson catheter placed. A tourniquet was applied to the proximal aspect of the left leg. Nonsterile drapes were applied. A presurgical prepped with chlorhexidine scrub brush was performed. The left leg was then prepped and draped in the standard sterile fashion. Prior to starting surgery timeout was performed identifying the correct patient, operative extremity, and procedure. The patient's leg was then elevated, exsanguinated and the tourniquet was inflated to 250 mmHg. I began by outlining the prior scar over the anterior aspect of the knee. Skin incision was made with a scalpel and dissection was carried out proximally 1 cm proximal to the scar to identify normal tissue planes. I then elevated subfascial flaps carefully. A medial parapatellar arthrotomy was created. There was a small amount of purulence within the knee which was swabbed and sent for culture. At this point I performed an extensive debridement of the knee. Due to the patient's BMI of 41.7, prior knee replacement, and scarring from the infection this was extremely tedious and took extensive time. I very carefully developed both the medial and lateral gutters debriding nonviable and obviously infected tissue. An extensive synovectomy was performed using electrocautery. Once a thorough synovectomy and debridement was performed I proceeded to remove the polyethylene liner. An carefully exposed the femur and used both reciprocating and sagittal saws to break the interface between implant and cement around the femoral component. Once I had done this I carefully tapped the femur loose with a bone tamp and mallet. There was minimal bone loss. Attention was then turned to the tibia. I exposed around the posterior medial corner of the tibia and then subluxed the tibia forward. I again used a [place] of sagittal and reciprocating saws to break the cement interface between the implant and cement mantle. With the knee in extension I used a bone tamp and mallet to deep on the tibial implant from the tibia. I then flexed the knee and carefully removed the tibial component without inadvertently damaging the femoral condyles. There was minimal bone loss on the tibia. I then used a pneumatic bur to break through the cement pedestal in the tibia. I then used cement removal devices and a pneumatic bur to completely remove all cement within the tibia. I then returned my attention to the patellar component which was circumferentially exposed and then carefully removed with a sagittal saw. I used a pneumatic bur to remove the lugs from their holes. At this point I did a second look debridement including in the posterior capsule of the knee. Once the knee was felt to be adequately debrided the joint was soaked for 3 minutes with a dilute Betadine rinse. It was then irrigated with 3 L of sterile saline. The knee was then soaked with a dilute chlorhexidine rinse for 3 minutes. It was then rinsed and irrigated with 3 L of sterile saline. A cutting guide for a posterior stabilized implant was placed, pinned and cuts were made. I then trialed and was happy with the overall balance of the knee. At this point all attendants scrubbed and changed gloves. Implants were dispensed on the back table. 2 bags of antibiotics were mixed with 8 g of vancomycin and 2 g of tobramycin. A dowel was made for cement and attached to the polyethylene liner and augments were crudely fashioned on the femoral implant based on trialing. Was allowed to fully set. An additional 2 bags of antibiotics with pre-added tobramycin and additional 8 g of vancomycin and 2 g of tobramycin were mixed. The tourniquet was let down and the tibial polyliner and dowel and femoral component were loosely cemented into place. This was allowed to harden with the knee in extension. The wound was then thoroughly irrigated with 3 L of sterile saline using pulsatile lavage. The wound was then closed in layers using all monofilament suture. An incisional wound VAC was applied over the closed inci ny. The drapes were taken down and the knee was wrapped both with web roll and an Mckay wrap. A knee immobilizer was then placed. The patient was awoken from his anesthesia, [facility], his Knutson catheter was removed, and he was brought to recovery having tolerated the procedure well. Solange Dang PA-C was required as a skilled assistant import manager for patient positioning, draping, retraction, exposure, removal of implants, placement of new implants, closure of wound, and application of dressing. Plan: The patient can weight-bear as tolerated on his left leg in a knee immobilizer. He'll be started on IV antibiotics and a formal infectious disease consultation has been placed. He will need a PICC line and at least 6 weeks of IV antibiotics. We will follow cultures but his preoperative cultures grew methicillin sensitive staph epi. Internal medicine was also been consulted for perioperative medical management. DVT prophylaxis with aspirin 81 mg twice a day.
[2023-10-08 12:35] LABS: Glucose,Whole Blood 179 mg/dL (70-110)
[2023-10-08] MEDS: DEXAMETHASONE SOD PHOSPHATE 4 MG/ML 1 ML VIAL IV ONE (13:25)
[2023-10-08] MEDS: LACTATED RINGERS 1,000 ML IV SCH ×2 (13:25→17:10)
[2023-10-08] MEDS: HYDROmorphone 0.5 MG/0.5 ML SYRINGE IVP PRN (13:45)
--- NOTE | 2023-10-08 14:36 | XR ---
EXAMINATION TYPE: XR knee limited LT DATE OF EXAM: 10/08/2023 COMPARISON: NONE HISTORY: 68-year-old male postoperative assessment TECHNIQUE: 2 views FINDINGS: Redemonstrated left total knee arthroplasty with interval removal of the tibial tray compon ent and placement of cemented component. Alignment grossly anatomic. There is new, cemented distal fe moral component also noted. There may be some cement extruding from the anterior lateral aspect of th e femoral component. Anterior soft tissue swelling with scattered soft tissue air as well as intra-ar ticular air related to recent operation. IMPRESSION: 1. Revision knee arthroplasty with placement of a cemented distal femoral component. There is some ce ment projecting beyond the bone along the anterolateral margin of the femoral component on both views . Clinically correlate. 2. Replacement of the tibial tray component with antibiotic impregnated cement. 3. Alignment grossly anatomic. No periprosthetic fracture seen.
[2023-10-08] MEDS: VANCOMYCIN 1,750 MG in SODIUM CHLORIDE 0.9% 500 ML 500 ML IVPB SCH (16:23)
[2023-10-08] MEDS ORDERED: DEXTROSE 50% SYRINGE 50 ML IVP PRN ×2 (16:33)
--- NOTE | 2023-10-08 16:35 | P.CONS ---
History of Present Illness - Reason for Consult Consult date: 10/08/23 - History of Present Illness 68 year old M with PMH hypertension, diabetes, dyslipidemia, previously underwent elective left knee arthroplasty on 04/24. He presents to [facility] for left chronic periprosthetic knee infection after a mechanical fall. He underwent insertion of drug delivery device, intra-articular, articulating spacer, irrigation and excisional debridement and application of negative pressure dressing with Dr. Penaloza. [facility] consulted for medical management of this patient. Patient seen and examined after the procedure. Has not urinated yet. No bowel movement. Reports well controlled pain in the left knee. Arthrocentesis was performed in the outpatient setting grew MSSA. Currently on Vancomycin IV. General: non toxic, no distress, appears at stated age Derm: warm, dry Head: atraumatic, normocephalic, symmetric Eyes: EOMI, no lid lag, anicteric sclera Mouth: no lip lesion, mucus membranes moist Cardiovascular: S1S2 reg, no murmur Lungs: CTA bilateral, no rhonchi, no rales , no accessory muscle use Ext: no gross muscle atrophy, no edema, no contractures Neuro: no focal neuro deficits Psych: Alert, oriented, appropriate affect Based on my assessment of this patient, this patient meets a high complexity level of care. Patient has an acute diagnosis of septic joint that poses a threat to life or bodily function. Septic arthritis with h/o left knee arthroplasty on 04/24: WCx outpatient setting grew MSSA. Continue Vancomycin dosed per pharmacy. Monitor vancomycin trough for toxicity. Follow OR cultures. ID consult. Hypertension: Lisinopril 20 mg PO QD. Diabetes: ISS. Sliding scale. Accuchecks ACHS. Hypoglycemic precautions. Dyslipidemia: Lipitor 20 mg PO QD. CODE STATUS: FULL CODE DVT Prophylaxis: SCDs GI Prophylaxis: Designated medical POA if patient is not able to make medical decisions for themselves: I have reviewed the following hematology oncology consultant notes: Operative note. I have reviewed the results of the following tests: I have ordered the following tests: CBC, BMP. I have discussed the care of this patient with the following independent historian: I have independently interpreted the following test below: I have discussed the management of this patient with the following physician: 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-had wound vac Apr 2023, hx gout History of Any Multi-Drug Resistant Organisms: None Reported Past Surgical History: Joint Replacement, Orthopedic Surgery, Tonsillectomy Additional Past Surgical History / Comment(s): VASECTOMY, growth removed from rt abdomen, left knee replacement,ORIF left ankle Past Anesthesia/Blood Transfusion Reactions: No Reported Reaction Additional Past Anesthesia/Blood Transfusion Reaction / Comm: no hx blood transfusion Past Psychological History: No Psychological Hx Reported Smoking Status: Former smoker Past Alcohol Use History: None Reported Additional Past Alcohol Use History / Comment(s): quit smoking 1982,started smoking at age 16,>1ppd Past Drug Use History: None Reported - Past Family History Mother Family Medical History: No Reported History Medications and Allergies Home Medications Medication Instructions Recorded Confirmed Type Atorvastatin [Lipitor] 20 mg PO DAILY 01/27/19 10/08/23 History Cholecalciferol [Vitamin D3 (25 75 mcg PO DAILY 01/27/19 10/08/23 History Mcg = 1000 Iu)] Pioglitazone [Actos] 45 mg PO DAILY 01/27/19 10/08/23 History lisinopriL 20 mg PO QAM 01/27/19 10/08/23 History metFORMIN HCL [Glucophage] 1,000 mg PO BID 01/27/19 10/08/23 History Meloxicam [Mobic] 15 mg PO DAILY 04/22/23 10/08/23 History Aspirin 81 mg PO HS 09/24/23 10/08/23 History HYDROcodone/APAP 5-325MG [[place] 1 tab PO Q6HR PRN 09/24/23 10/08/23 History 5-325] Aspirin [Adult Low Dose Aspirin EC] 81 mg PO BID #1 tab 10/08/23 Rx HYDROcodone/APAP 7.5-325MG [[place] 1 - 2 tab PO Q6HR PRN #32 tab 10/08/23 Rx 7.5-325] Omeprazole 20 mg PO DAILY #30 tab 10/08/23 Rx Ondansetron Odt [Zofran Odt] 4 mg PO Q8HR PRN #14 tab 10/08/23 Rx Sennosides-Docusate Sodium 1 tab PO BID #60 tablet 10/08/23 Rx [Senokot-S] Allergies Allergy/AdvReac Type Severity Reaction Status Date / Time bee pollen Allergy Swelling Verified 10/08/23 06:23 silk Allergy had Verified 10/08/23 06:23 infection from silk sutures Physical Exam Vitals: Vital Signs Temp Pulse Pulse Resp BP Pulse Ox 10/08/23 13:10 98.2 F 97 17 113/75 93 L 10/08/23 12:32 101 H 20 122/61 96 10/08/23 12:02 100 16 112/51 94 L 10/08/23 11:47 99 18 124/62 94 L 10/08/23 11:32 99 20 126/66 94 L 10/08/23 11:17 101 H 20 132/61 97 10/08/23 11:02 103 H 16 131/62 94 L 10/08/23 10:47 97.5 F L 108 H 16 151/72 99 10/08/23 07:15 96 16 112/57 96 10/08/23 06:20 97.7 F 89 16 128/86 93 L Intake and Output 10/08/23 10/08/23 10/08/23 06:59 14:59 22:59 Intake Total 300 1200 Output Total 300 Balance 300 900 Intake: IV 300 1200 Output: Urine 100 Estimated Blood Loss 200 Other: Weight 120.7 kg 120.7 kg Results Labs: Abnormal Lab Results - Last 24 Hours (Table) 10/08/23 10/08/23 Range/Units 06:50 12:34 POC Glucose (mg/dL) 116 H 179 H (70-110) mg/dL
[2023-10-08 17:06] LABS: Glucose,Whole Blood 174 mg/dL (70-110)
[2023-10-08] MEDS: INSULIN ASPART (NovoLOG) 100 UNIT/ML VIAL SQ SCH (17:10)
--- NOTE | 2023-10-08 19:06 | P.ANPRN ---
Procedure Note - Anesthesia - Nerve Block Performed Left Adductor Canal Single Time Out Performed: Yes Date of Procedure: 10/08/23 Procedure Start Time: :07 Procedure Stop Time: 07:11 Location of Patient: PreOp Indication: Acute Post-Operative Pain, Requested by Surgeon Sedation Type: Sedate with meaningful contact maintained Preparation: Sterile Prep Position: Supine Needle Types: Pajunk Needle Gauge: 21 Ultrasound used to visualize needle placement: Yes Ultrasound used to observe medication spread: Yes Blood Aspirated: No Pain Paresthesia on Injection Noted: No Resistance on Injection: Normal Image Stored and Saved: Yes Events: Uneventful and Well Tolerated (Ropivacaine 0.5% 20 cc plus dexamethasone 4 mg)
--- NOTE | 2023-10-08 19:07 | P.ANPRN ---
Procedure Note - Anesthesia - Nerve Block Performed Left iPack Single Time Out Performed: Yes Date of Procedure: 10/08/23 Procedure Start Time: 07:12 Procedure Stop Time: 07:14 Location of Patient: PreOp Indication: Acute Post-Operative Pain, Requested by Surgeon Sedation Type: Sedate with meaningful contact maintained Preparation: Sterile Prep Needle Types: Pajunk Needle Gauge: 21 Ultrasound used to visualize needle placement: Yes Ultrasound used to observe medication spread: Yes Blood Aspirated: No Pain Paresthesia on Injection Noted: No Resistance on Injection: Normal Image Stored and Saved: Yes Events: Uneventful and Well Tolerated (Ropivacaine 0.5% 20 cc plus dexamethasone 4 mg)
[2023-10-08 20:13] LABS: Glucose,Whole Blood 149 mg/dL (70-110)
[2023-10-08] MEDS: ASPIRIN 81 MG PO SCH (20:16)
[2023-10-08] MEDS: SENNOSIDES-DOCUSATE SODIUM 1 EACH TAB PO SCH (20:16)
[2023-10-08] MEDS: HYDROcodone/APAP 7.5-325MG 1 EACH TAB PO PRN (20:16)
--- NOTE | 2023-10-08 22:31 | P.CONS ---
History of Present Illness - Reason for Consult Consult date: 10/08/23 - History of Present Illness Patient is a 68-year-old male with a past medical history of significant for diabetes mellitus hypertension hyperlipidemia osteoarthritis in this patient who did have elective left knee arthroplasty on 04/24/2023 subsequently he did well apparently the patient did have a fall injury recently subsequently developing swelling to the left knee area with associated pain apparently the patient did have aspirate of the left knee done by his orthopedic surgeon on 09/08/2023 culture grew oxacillin sensitive staph epi with concern for underlying septic joint patient has been admitted to hospital patient is status post excisional arthroplasty removal of all the hardware and placement of antibiotic spacer and thorough washout of the left knee cultures has been obtained which are currently pending patient was started on vancomycin infectious disease was consulted for further management of antibiotic therapy patient currently has been complaining of pain to the left knee area to be sharp moderate intensity without any radiation with associated swelling and mention earlier. Denies high-grade fever no URI symptoms no chest pain shortness of breath or cough no nausea vomiting no abdominal pain and no diarrhea 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-had wound vac Apr 2023, hx gout History of Any Multi-Drug Resistant Organisms: None Reported Past Surgical History: Joint Replacement, Orthopedic Surgery, Tonsillectomy Additional Past Surgical History / Comment(s): VASECTOMY, growth removed from rt abdomen, left knee replacement,ORIF left ankle Past Anesthesia/Blood Transfusion Reactions: No Reported Reaction Additional Past Anesthesia/Blood Transfusion Reaction / Comm: no hx blood transfusion Smoking Status: Former smoker - Past Family History Mother Family Medical History: No Reported History Medications and Allergies Home Medications Medication Instructions Recorded Confirmed Type Atorvastatin [Lipitor] 20 mg PO DAILY 01/27/19 10/08/23 History Cholecalciferol [Vitamin D3 (25 75 mcg PO DAILY 01/27/19 10/08/23 History Mcg = 1000 Iu)] Pioglitazone [Actos] 45 mg PO DAILY 01/27/19 10/08/23 History lisinopriL 20 mg PO QAM 01/27/19 10/08/23 History metFORMIN HCL [Glucophage] 1,000 mg PO BID 01/27/19 10/08/23 History Meloxicam [Mobic] 15 mg PO DAILY 04/22/23 10/08/23 History Aspirin 81 mg PO HS 09/24/23 10/08/23 History HYDROcodone/APAP 5-325MG [Palisade 1 tab PO Q6HR PRN 09/24/23 10/08/23 History 5-325] Aspirin [Adult Low Dose Aspirin EC] 81 mg PO BID #1 tab 10/08/23 Rx HYDROcodone/APAP 7.5-325MG [Palisade 1 - 2 tab PO Q6HR PRN #32 tab 10/08/23 Rx 7.5-325] Omeprazole 20 mg PO DAILY #30 tab 10/08/23 Rx Ondansetron Odt [Zofran Odt] 4 mg PO Q8HR PRN #14 tab 10/08/23 Rx Sennosides-Docusate Sodium 1 tab PO BID #60 tablet 10/08/23 Rx [Senokot-S] Allergies Allergy/AdvReac Type Severity Reaction Status Date / Time bee pollen Allergy Swelling Verified 10/08/23 06:23 silk Allergy had Verified 10/08/23 06:23 infection from silk sutures Physical Exam Vitals: Vital Signs Temp Pulse Resp BP Pulse Ox 10/08/23 11:02 103 H 16 131/62 94 L 10/08/23 10:47 97.5 F L 108 H 16 151/72 99 10/08/23 07:15 96 16 112/57 96 10/08/23 06:20 97.7 F 89 16 128/86 93 L Intake and Output 10/07/23 10/08/23 10/08/23 22:59 06:59 14:59 Intake Total 300 800 Output Total 300 Balance 300 500 Intake: IV 300 800 Output: Urine 100 Estimated Blood Loss 200 Other: Weight 120.7 kg Results CBC & Chem 7: 10/09/23 05:50 10/09/23 05:50 Labs: Abnormal Lab Results - Last 24 Hours (Table) 10/08/23 Range/Units 06:50 POC Glucose (mg/dL) 116 H (70-110) mg/dL Assessment and Plan Plan: 1patient presented hospital with left knee septic arthritis in this patient who did have history of left knee replacement in April 2023 outpatient culture positive for oxacillin sensitive staph epi and could be related to diet pathogen other etiologies not excluded 2-we will obtain blood cultures inflammatory markers 3-vancomycin pharmacy to dose target trough of 15 while watching kidney function and Vanco trough closely 4-will need a PICC line and 6 weeks of IV antibiotic therapy Patient discussed with the orthopedic surgeon We will follow on clinical condition and cultures to further adjust medication if needed Thank you for this consultation we will follow the patient along with you Dictation was produced using [employer] dictation software. please excuse any grammatical, word or spelling errors. Time with Patient: Greater than 30
[2023-10-09 06:04] LABS: Glucose,Whole Blood 132 mg/dL (70-110)
[2023-10-09 07:58] LABS: African American GFR (CKD) >90 (>60 ml/min/1.73 sqM); Anion Gap 7 mmol/L; Blood Urea Nitrogen 23 mg/dL (9-20); Calcium 8.8 mg/dL (8.4-10.2); Carbon Dioxide 27 mmol/L (22-30); Chloride 103 mmol/L (98-107); Glucose 121 mg/dL (74-99); Non-African American GFR(CKD) 88 (>60 ml/min/1.73 sqM); Potassium 4.5 mmol/L (3.5-5.1); Sodium 137 mmol/L (137-145)
[2023-10-09 08:52] LABS: C Reactive Protein 2.1 mg/dL (<1.0)
[2023-10-09] MEDS: ATORVASTATIN 20 MG TAB PO SCH (09:25)
[2023-10-09] MEDS: MELOXICAM 7.5 MG TAB PO SCH (09:25)
[2023-10-09] MEDS: lisinopriL 20 MG TAB PO SCH (09:25)
[2023-10-09 11:29] LABS: Glucose,Whole Blood 114 mg/dL (70-110)
[2023-10-09 11:30] LABS: Basophils # (A) 0.02 X 10*3/uL (0.00-0.10); Basophils % (A) 0.1 %; Eosinophils # (A) 0.01 X 10*3/uL (0.04-0.35); Eosinophils % (A) 0.1 %; HGB 10.3 g/dL (13.0-17.0); Lymphocytes # (A) 1.26 X 10*3/uL (0.90-5.00); Lymphocytes % (A) 9.3 %; MCH 29.5 pg (27.0-32.0); MCHC 32.2 g/dL (32.0-37.0); MCV 91.7 FL (80.0-97.0); Mean Platelet Volume 10.6 FL (9.5-12.2); Monocytes # (A) 1.15 X 10*3/uL (0.20-1.00); Monocytes % (A) 8.5 %; NRBC Per 100 WBC 0 X 10*3/uL (0.00-0.01); Neutrophils # (A) 10.97 X 10*3/uL (1.80-7.70); Neutrophils % (A) 81.5 %; Platelet Count 306 X 10*3/uL (140-440); RBC 3.49 X 10*6/uL (4.40-5.60); WBC 13.48 X 10*3/uL (4.50-10.00)
--- NOTE | 2023-10-09 13:07 | P.PN ---
Subjective Progress Note Date: 10/09/23 68 year old M with PMH hypertension, diabetes, dyslipidemia, previously underwent elective left knee arthroplasty on 04/24. He presents to [facility] for left chronic periprosthetic knee infection after a mechanical fall. He underwent insertion of drug delivery device, intra-articular, articulating spacer, irrigation and excisional debridement and application of negative pressure dressing with Dr. Penaloza. [facility] [place] Physicians consulted for medical management of this patient. Patient seen and examined after the procedure. Has not urinated yet. No bowel movement. Reports well controlled pain in the left knee. Arthrocentesis was performed in the outpatient setting grew MSSA. Currently on Vancomycin IV. 10/08 Patient was seen and examined. Pain well controlled in left knee. Urinating freely. Passing gas. No complaints. CBC WBC 13.48, Hg 10.3, Hct 32. BMP BUN 23, glu 121. CRP 2.1. Vanc trough 9.3. ID recommends following up with cultures, 6 weeks of IV antibiotics. General: non toxic, no distress, appears at stated age Derm: warm, dry Head: atraumatic, normocephalic, symmetric Eyes: EOMI, no lid lag, anicteric sclera Mouth: no lip lesion, mucus membranes moist Cardiovascular: S1S2 reg, no murmur Lungs: CTA bilateral, no rhonchi, no rales , no accessory muscle use Ext: no gross muscle atrophy, no edema, no contractures Neuro: no focal neuro deficits Psych: Alert, oriented, appropriate affect Based on my assessment of this patient, this patient meets a high complexity level of care. Patient has an acute diagnosis of septic joint that poses a threat to life or bodily function. Septic arthritis with h/o left knee arthroplasty on 04/24: WCx outpatient setting grew MSSA. Continue Vancomycin dosed per pharmacy. Monitor vancomycin trough for toxicity. Follow OR cultures. ID consult. Hypertension: Lisinopril 20 mg PO QD. Diabetes: ISS. Sliding scale. Accuchecks ACHS. Hypoglycemic precautions. Dyslipidemia: Lipitor 20 mg PO QD. CODE STATUS: FULL CODE DVT Prophylaxis: SCDs GI Prophylaxis: Designated medical POA if patient is not able to make medical decisions for themselves: I have reviewed the following client development consultant notes: ID note. I have reviewed the results of the following tests: CBC, BMP. I have ordered the following tests: I have discussed the care of this patient with the following independent historian: I have independently interpreted the following test below: I have discussed the management of this patient with the following physician: Objective - Vital Signs Vital signs: Vital Signs Temp 97.8 F 10/09/23 07:59 Pulse 80 10/09/23 10:58 Resp 16 10/09/23 10:58 BP 113/66 10/09/23 07:59 Pulse Ox 95 10/09/23 07:59 FiO2 Intake & Output 10/08/23 10/09/23 10/09/23 18:59 06:59 18:59 Intake Total 1200 1680 Output Total 300 900 Balance 900 780 Weight 120.7 kg Intake: IV 1200 Intake, IV Titration 1200 Amount Lactated Ringers 1,000 ml 1200 @ 100 mls/hr IV .Q10H SITA Rx#:[id number] Oral 480 Output: Urine 100 900 Estimated Blood Loss 200 Other: Voiding Method Toilet # Voids 0 - Labs CBC & Chem 7: 10/09/23 05:50 10/09/23 05:50 Labs: Abnormal Lab Results - Last 24 Hours (Table) 10/08/23 10/08/23 10/09/23 Range/Units 16:53 20:11 05:50 WBC 13.48 H (4.50-10.00) X 10*3/uL RBC 3.49 L (4.40-5.60) X 10*6/uL Hgb 10.3 L (13.0-17.0) g/dL Hct 32.0 L (39.6-50.0) % RDW 15.0 H (11.5-14.5) % Immature Gran # 0.07 H (0.00-0.04) X 10*3/uL Neutrophils # 10.97 H (1.80-7.70) X 10*3/uL Monocytes # 1.15 H (0.20-1.00) X 10*3/uL Eosinophils # 0.01 L (0.04-0.35) X 10*3/uL BUN (9-20) mg/dL Glucose (74-99) mg/dL POC Glucose (mg/dL) 174 H 149 H (70-110) mg/dL C-Reactive Protein (<1.0) mg/dL 10/09/23 10/09/2324 Range/Units 05:50 06:02 11:26 WBC (4.50-10.00) X 10*3/uL RBC (4.40-5.60) X 10*6/uL Hgb (13.0-17.0) g/dL Hct (39.6-50.0) % RDW (11.5-14.5) % Immature Gran # (0.00-0.04) X 10*3/uL Neutrophils # (1.80-7.70) X 10*3/uL Monocytes # (0.20-1.00) X 10*3/uL Eosinophils # (0.04-0.35) X 10*3/uL BUN 23 H (9-20) mg/dL Glucose 121 H (74-99) mg/dL POC Glucose (mg/dL) 132 H 114 H (70-110) mg/dL C-Reactive Protein 2.1 H (<1.0) mg/dL Microbiology - Last 24 Hours (Table) 10/08/23 10:00 Gram Stain - Preliminary Knee - Left 10/08/23 10:00 Gram Stain - Preliminary Knee - Left
[2023-10-09 14:04] LABS: Erythrocyte Sedimentation Rate 64 mm/Hr (0-20)
--- NOTE | 2023-10-09 15:07 | P.PN ---
Subjective Patient is doing well this afternoon. He has mild pain in his knee. He has no other complaints this time of my evaluation. Objective - Vital Signs Vital signs: Vital Signs Temp 97.8 F 10/09/23 07:59 Pulse 80 10/09/23 10:58 Resp 16 10/09/23 10:58 BP 113/66 10/09/23 07:59 Pulse Ox 95 10/09/23 07:59 FiO2 Intake & Output 10/08/23 10/09/23 10/09/23 18:59 06:59 18:59 Intake Total 1200 1680 200 Output Total 300 900 Balance 900 780 200 Weight 120.7 kg Intake: IV 1200 Intake, IV Titration 1200 Amount Lactated Ringers 1,000 ml 1200 @ 100 mls/hr IV .Q10H SITA Rx#:[id number] Oral 480 200 Output: Urine 100 900 Estimated Blood Loss 200 Other: Voiding Method Toilet # Voids 0 - Exam Patient is sleeping at bedside chair. He wakes easily and is alert and able to answer questions. On inspection the left leg there is a knee immobilizer and Mckay wrap in place. His incisional wound VAC has a good seal. His foot is mi ldly swollen and warm and well-perfused. He will actively plantarflex and dorsiflex his ankle and his toes. - Labs CBC & Chem 7: 10/09/23 05:50 10/09/23 05:50 Labs: Abnormal Lab Results - Last 24 Hours (Table) 10/08/23 10/08/23 10/09/23 Range/Units 16:53 20:11 05:50 WBC 13.48 H (4.50-10.00) X 10*3/uL RBC 3.49 L (4.40-5.60) X 10*6/uL Hgb 10.3 L (13.0-17.0) g/dL Hct 32.0 L (39.6-50.0) % RDW 15.0 H (11.5-14.5) % Immature Gran # 0.07 H (0.00-0.04) X 10*3/uL Neutrophils # 10.97 H (1.80-7.70) X 10*3/uL Monocytes # 1.15 H (0.20-1.00) X 10*3/uL Eosinophils # 0.01 L (0.04-0.35) X 10*3/uL ESR 64 H (0-20) mm/Hr BUN (9-20) mg/dL Glucose (74-99) mg/dL POC Glucose (mg/dL) 174 H 149 H (70-110) mg/dL C-Reactive Protein (<1.0) mg/dL 10/09/23 10/09/23 10/09/23 Range/Units 05:50 06:02 11:26 WBC (4.50-10.00) X 10*3/uL RBC (4.40-5.60) X 10*6/uL Hgb (13.0-17.0) g/dL Hct (39.6-50.0) % RDW (11.5-14.5) % Immature Gran # (0.00-0.04) X 10*3/uL Neutrophils # (1.80-7.70) X 10*3/uL Monocytes # (0.20-1.00) X 10*3/uL Eosinophils # (0.04-0.35) X 10*3/uL ESR (0-20) mm/Hr BUN 23 H (9-20) mg/dL Glucose 121 H (74-99) mg/dL POC Glucose (mg/dL) 132 H 114 H (70-110) mg/dL C-Reactive Protein 2.1 H (<1.0) mg/dL Microbiology - Last 24 Hours (Table) 10/08/23 10:00 Gram Stain - Preliminary Knee - Left 10/08/23 10:00 Gram Stain - Preliminary Knee - Left Assessment and Plan Assessment: Post operative day #1 status post left knee articulating antibiotic spacer for periprosthetic joint infection Plan: 1. Weight bear as tolerated left lower extremity with a knee immobilizer 2. Leave incisional wound VAC in place 3. Mobilize out of bed to chair is able 4. Appreciate internal medicine's assistance with therapy medical management 5. Appreciate infectious disease assistance with choice of antibiotics and arrangement of PICC line 6. Dispo planning in process
--- NOTE | 2023-10-09 15:36 | P.PN ---
Subjective Progress Note Date: 10/09/23 Principal diagnosis: Reason for follow-up is left knee septic arthritis Patient is a 68-year-old male with a past medical history of significant for diabetes mellitus hypertension hyperlipidemia osteoarthritis in this patient who did have elective left knee arthroplasty on 04/24/2023 being admitted to hospital after left knee excisional arthroplasty and antibiotic spa cer placement on 10/08/2023. On today's evaluation that is 10/09/2023,the patient denies any fever or any chills, patient is breathing comfortably on room air, the patient denies chest pain shortness of breath and no significant cough, patient denies abdominal pain, no nausea vomiting or diarrhea. Pain to the left knee less than yesterday. Patient white count is 13.48 creatinine 0.87 ESR 64 CRP 2.1 cultures pending Objective - Vital Signs Vital signs: Vital Signs Temp 97.9 F 10/09/23 14:00 Pulse 89 10/09/23 14:00 Resp 16 10/09/23 14:00 BP 116/69 10/09/23 14:00 Pulse Ox 91 L 10/09/23 14:00 FiO2 Intake & Output 10/08/23 10/09/23 10/09/23 18:59 06:59 18:59 Intake Total 1200 1680 200 Output Total 300 900 100 Balance 900 780 100 Weight 120.7 kg Intake: IV 1200 Intake, IV Titration 1200 Amount Lactated Ringers 1,000 ml 1200 @ 100 mls/hr IV .Q10H SITA Rx#:[id number] Oral 480 200 Output: Urine 100 900 100 Estimated Blood Loss 200 Other: Voiding Method Toilet # Voids 0 - Exam GENERAL DESCRIPTION: An elderly male lying in bed in no distress RESPIRATORY SYSTEM: Unlabored breathing , decreased breath sounds at bases HEART: S1 S2 regular rate and rhythm , ABDOMEN: Soft , no tenderness EXTREMITIES: Left knee is currently dressed - Labs CBC & Chem 7: 10/09/23 05:50 10/09/23 05:50 Labs: Abnormal Lab Results - Last 24 Hours (Table) 10/08/23 10/08/23 10/09/23 Range/Units 16:53 20:11 05:50 WBC 13.48 H (4.50-10.00) X 10*3/uL RBC 3.49 L (4.40-5.60) X 10*6/uL Hgb 10.3 L (13.0-17.0) g/dL Hct 32.0 L (39.6-50.0) % RDW 15.0 H (11.5-14.5) % Immature Gran # 0.07 H (0.00-0.04) X 10*3/uL Neutrophils # 10.97 H (1.80-7.70) X 10*3/uL Monocytes # 1.15 H (0.20-1.00) X 10*3/uL Eosinophils # 0.01 L (0.04-0.35) X 10*3/uL ESR 64 H (0-20) mm/Hr BUN (9-20) mg/dL Glucose (74-99) mg/dL POC Glucose (mg/dL) 174 H 149 H (70-110) mg/dL C-Reactive Protein (<1.0) mg/dL 10/09/23 10/09/23 10/09/23 Range/Units 05:50 06:02 11:26 WBC (4.50-10.00) X 10*3/uL RBC (4.40-5.60) X 10*6/uL Hgb (13.0-17.0) g/dL Hct (39.6-50.0) % RDW (11.5-14.5) % Immature Gran # (0.00-0.04) X 10*3/uL Neutrophils # (1.80-7.70) X 10*3/uL Monocytes # (0.20-1.00) X 10*3/uL Eosinophils # (0.04-0.35) X 10*3/uL ESR (0-20) mm/Hr BUN 23 H (9-20) mg/dL Glucose 121 H (74-99) mg/dL POC Glucose (mg/dL) 132 H 114 H (70-110) mg/dL C-Reactive Protein 2.1 H (<1.0) mg/dL Microbiology - Last 24 Hours (Table) 10/08/23 10:00 Gram Stain - Preliminary Knee - Left 10/08/23 10:00 Gram Stain - Preliminary Knee - Left Assessment and Plan (1) Infection of total knee replacement Current Visit: Yes Status: Acute Code(s): T84.59XA - INFECT/INFLM REACTION DUE TO OTH INTERNAL JOINT PROSTH, INIT; Z96.659 - PRESENCE OF UNSPECIFIED ARTIFICIAL KNEE JOINT SNOMED Code(s): 978792906 Plan: 1patient presented hospital with left knee septic arthritis in this patient who did have history of left knee replacement in April 2023 outpatient culture positive for oxacillin sensitive staph epi and could be related to same pathogen other etiologies not excluded 2-blood cultures currently pending did have elevated ESR of 64 and a CRP of 2.1 3-patient to continue with vancomycin pharmacy to dose target trough of 15 while watching kidney function and Vanco trough closely while waiting for the culture to finalize Dictation was produced using [employer] dictation software. please excuse any grammatical, word or spelling errors.
[2023-10-09 16:46] LABS: Glucose,Whole Blood 170 mg/dL (70-110)
[2023-10-09 21:39] LABS: Glucose,Whole Blood 160 mg/dL (70-110)
[2023-10-10 05:31] LABS: Glucose,Whole Blood 97 mg/dL (70-110)
[2023-10-10 07:59] LABS: African American GFR (CKD) >90 (>60 ml/min/1.73 sqM); Non-African American GFR(CKD) 90 (>60 ml/min/1.73 sqM)
--- NOTE | 2023-10-10 09:05 | P.PN ---
Subjective Patient will this morning. He has minimal pain in his knee. Objective - Vital Signs Vital signs: Vital Signs Temp 98 F 10/10/23 00:15 Pulse 92 10/10/23 00:15 Resp 19 10/10/23 00:15 BP 110/62 10/10/23 00:15 Pulse Ox 91 L 10/10/23 00:15 FiO2 Intake & Output 10/09/23 10/10/23 10/10/23 18:59 06:59 18:59 Intake Total 650 Output Total 600 Balance 50 Intake: Oral 650 Output: Urine 600 Other: Voiding Method Toilet # Voids 1 - Exam Resting comfortably in bed. Alert and able to answer questions. His knee immobilizer and Mckay wrap are in place. His incisional wound VAC has a good seal. His foot is warm and well perfused with brisk capillary refill. He is able to actively plantar flex and dorsiflex his ankle and his toes. - Labs CBC & Chem 7: 10/09/23 05:50 10/10/23 06:59 Labs: Abnormal Lab Results - Last 24 Hours (Table) 10/09/23 10/09/23 10/09/23 Range/Units 05:50 11:26 16:38 WBC 13.48 H (4.50-10.00) X 10*3/uL RBC 3.49 L (4.40-5.60) X 10*6/uL Hgb 10.3 L (13.0-17.0) g/dL Hct 32.0 L (39.6-50.0) % RDW 15.0 H (11.5-14.5) % Immature Gran # 0.07 H (0.00-0.04) X 10*3/uL Neutrophils # 10.97 H (1.80-7.70) X 10*3/uL Monocytes # 1.15 H (0.20-1.00) X 10*3/uL Eosinophils # 0.01 L (0.04-0.35) X 10*3/uL ESR 64 H (0-20) mm/Hr POC Glucose (mg/dL) 114 H 170 H (70-110) mg/dL 10/09/23 Range/Units 21:37 WBC (4.50-10.00) X 10*3/uL RBC (4.40-5.60) X 10*6/uL Hgb (13.0-17.0) g/dL Hct (39.6-50.0) % RDW (11.5-14.5) % Immature Gran # (0.00-0.04) X 10*3/uL Neutrophils # (1.80-7.70) X 10*3/uL Monocytes # (0.20-1.00) X 10*3/uL Eosinophils # (0.04-0.35) X 10*3/uL ESR (0-20) mm/Hr POC Glucose (mg/dL) 160 H (70-110) mg/dL Microbiology - Last 24 Hours (Table) 10/08/23 10:00 Acid Fast Bacilli Smear - Preliminary Knee - Left 10/08/23 10:00 Acid Fast Bacilli Smear - Preliminary Knee - Left 10/08/23 10:00 Acid Fast Bacilli Smear - Preliminary Knee - Left 10/08/23 10:00 Gram Stain - Preliminary Knee - Left 10/08/23 10:00 Gram Stain - Preliminary Knee - Left 10/08/23 10:00 Gram Stain - Preliminary Knee - Left Assessment and Plan Assessment: Postoperative day #2 status post placement of articulating antibiotic spacer left knee Plan: Continue treatment as outlined yesterday. We're awaiting cultures for final antibiotic recommendations and placement of a PICC line. He can weight-bear as tolerated on his left leg in the knee immobilizer. We will take the knee immobilizer off and commence range of motion on Thursday prior to discharge.
[2023-10-10] MEDS ORDERED: ZOLPIDEM 5 MG TAB PO PRN (11:32)
--- NOTE | 2023-10-10 11:32 | P.PN ---
Subjective Progress Note Date: 10/10/23 68 year old M with PMH hypertension, diabetes, dyslipidemia, previously underwent elective left knee arthroplasty on 04/24. He presents to [facility] for left chronic periprosthetic knee infection after a mechanical fall. He underwent insertion of drug delivery device, intra-articular, articulating spacer, irrigation and excisional debridement and application of negative pressure dressing with Dr. Penaloza. [facility] Physicians consulted for medical management of this patient. Patient seen and examined after the procedure. Has not urinated yet. No bowel movement. Reports well controlled pain in the left knee. Arthrocentesis was performed in the outpatient setting grew MSSA. Currently on Vancomycin IV. 10/08 Patient was seen and examined. Pain well controlled in left knee. Urinating freely. Passing gas. No complaints. CBC WBC 13.48, Hg 10.3, Hct 32. BMP BUN 23, glu 121. CRP 2.1. Vanc trough 9.3. ID recommends following up with cultures, 6 weeks of IV antibiotics. 10/09 Patient was seen and examined. Renal function within normal limits today. Maintained on Vanomcyin dosed per pharmacy. Cultures negative so far. Reports insomnia. General: non toxic, no distress, appears at stated age Derm: warm, dry Head: atraumatic, normocephalic, symmetric Eyes: EOMI, no lid lag, anicteric sclera Mouth: no lip lesion, mucus membranes moist Cardiovascular: S1S2 reg, no murmur Lungs: CTA bilateral, no rhonchi, no rales , no accessory muscle use Ext: no gross muscle atrophy, no edema, no contractures Neuro: no focal neuro deficits Psych: Alert, oriented, appropriate affect Based on my assessment of this patient, this patient meets a high complexity level of care. Patient has an acute diagnosis of septic joint that poses a threat to life or bodily function. Septic arthritis with h/o left knee arthroplasty on 04/24: WCx outpatient setting grew MSSA. Continue Vancomycin dosed per pharmacy. Monitor vancomycin trough for toxicity. Follow OR cultures. ID on board Insomnia: Ambien 5 mg PO QHS PRN. Hypertension: Lisinopril 20 mg PO QD. Diabetes: ISS. Sliding scale. Accuchecks ACHS. Hypoglycemic precautions. Dyslipidemia: Lipitor 20 mg PO QD. CODE STATUS: FULL CODE DVT Prophylaxis: SCDs GI Prophylaxis: Designated medical POA if patient is not able to make medical decisions for themselves: I have reviewed the following heritage consultant notes: ID, Orthopedic Sx note. I have reviewed the results of the following tests: Renal function. I have ordered the following tests: Renal function. I have discussed the care of this patient with the following independent historian: I have independently interpreted the following test below: I have discussed the management of this patient with the following physician: Objective - Vital Signs Vital signs: Vital Signs Temp 98 F 10/10/23 00:15 Pulse 92 10/10/23 00:15 Resp 19 10/10/23 00:15 BP 110/62 10/10/23 00:15 Pulse Ox 91 L 10/10/23 00:15 FiO2 Intake & Output 10/09/23 10/10/23 10/10/23 18:59 06:59 18:59 Intake Total 650 Output Total 600 Balance 50 Intake: Oral 650 Output: Urine 600 Other: Voiding Method Toilet # Voids 1 - Labs CBC & Chem 7: 10/09/23 05:50 10/10/23 06:59 Labs: Abnormal Lab Results - Last 24 Hours (Table) 10/09/23 10/09/23 10/09/23 Range/Units 05:50 05:50 11:26 WBC 13.48 H (4.50-10.00) X 10*3/uL RBC 3.49 L (4.40-5.60) X 10*6/uL Hgb 10.3 L (13.0-17.0) g/dL Hct 32.0 L (39.6-50.0) % RDW 15.0 H (11.5-14.5) % Immature Gran # 0.07 H (0.00-0.04) X 10*3/uL Neutrophils # 10.97 H (1.80-7.70) X 10*3/uL Monocytes # 1.15 H (0.20-1.00) X 10*3/uL Eosinophils # 0.01 L (0.04-0.35) X 10*3/uL ESR 64 H (0-20) mm/Hr POC Glucose (mg/dL) 114 H (70-110) mg/dL C-Reactive Protein 2.1 H (<1.0) mg/dL 10/09/23 10/09/23 Range/Units 16:38 21:37 WBC (4.50-10.00) X 10*3/uL RBC (4.40-5.60) X 10*6/uL Hgb (13.0-17.0) g/dL Hct (39.6-50.0) % RDW (11.5-14.5) % Immature Gran # (0.00-0.04) X 10*3/uL Neutrophils # (1.80-7.70) X 10*3/uL Monocytes # (0.20-1.00) X 10*3/uL Eosinophils # (0.04-0.35) X 10*3/uL ESR (0-20) mm/Hr POC Glucose (mg/dL) 170 H 160 H (70-110) mg/dL C-Reactive Protein (<1.0) mg/dL Microbiology - Last 24 Hours (Table) 10/08/23 10:00 Acid Fast Bacilli Smear - Preliminary Knee - Left 10/08/23 10:00 Acid Fast Bacilli Smear - Preliminary Knee - Left 10/08/23 10:00 Acid Fast Bacilli Smear - Preliminary Knee - Left 10/08/23 10:00 Gram Stain - Preliminary Knee - Left 10/08/23 10:00 Gram Stain - Preliminary Knee - Left 10/08/23 10:00 Gram Stain - Preliminary Knee - Left
[2023-10-10 11:59] LABS: Glucose,Whole Blood 177 mg/dL (70-110)
--- NOTE | 2023-10-10 13:29 | P.PN ---
Subjective Progress Note Date: 10/10/23 Principal diagnosis: Reason for follow-up is left knee septic arthritis Patient is a 68-year-old male with a past medical history of significant for diabetes mellitus hypertension hyperlipidemia osteoarthritis in this patient who did have elective left knee arthroplasty on 04/24/2023 being admitted to hospital after left knee excisional arthroplasty and antibiotic spa cer placement on 10/08/2023. On today's evaluation that is 10/10/2023,the patient remains to be afebrile, patient is on room air not requiring supplemental oxygen and denies any shortness of breath no chest pain or cough.Patient denies having any nausea or vomiting, no abdominal pain and no diarrhea has been reported, pain to the left knee has decreased in intensity. Patient did have a creatinine of 0.82 cultures currently pending Objective - Vital Signs Vital signs: Vital Signs Temp 98.0 F 10/10/23 06:57 Pulse 96 10/10/23 06:57 Resp 18 10/10/23 06:57 BP 117/78 10/10/23 06:57 Pulse Ox 92 L 10/10/23 06:57 FiO2 Intake & Output 10/09/23 10/10/23 10/10/23 18:59 06:59 18:59 Intake Total 650 Output Total 600 Balance 50 Intake: Oral 650 Output: Urine 600 Other: Voiding Method Toilet # Voids 1 - Exam GENERAL DESCRIPTION: An elderly male lying in bed in no distress RESPIRATORY SYSTEM: Unlabored breathing , decreased breath sounds at bases HEART: S1 S2 regular rate and rhythm , ABDOMEN: Soft , no tenderness EXTREMITIES: Left knee is currently dressed - Labs CBC & Chem 7: 10/09/23 05:50 10/10/23 06:59 Labs: Abnormal Lab Results - Last 24 Hours (Table) 10/09/23 10/09/23 10/09/23 Range/Units 05:50 11:26 16:38 WBC 13.48 H (4.50-10.00) X 10*3/uL RBC 3.49 L (4.40-5.60) X 10*6/uL Hgb 10.3 L (13.0-17.0) g/dL Hct 32.0 L (39.6-50.0) % RDW 15.0 H (11.5-14.5) % Immature Gran # 0.07 H (0.00-0.04) X 10*3/uL Neutrophils # 10.97 H (1.80-7.70) X 10*3/uL Monocytes # 1.15 H (0.20-1.00) X 10*3/uL Eosinophils # 0.01 L (0.04-0.35) X 10*3/uL ESR 64 H (0-20) mm/Hr POC Glucose (mg/dL) 114 H 170 H (70-110) mg/dL 10/09/23 Range/Units 21:37 WBC (4.50-10.00) X 10*3/uL RBC (4.40-5.60) X 10*6/uL Hgb (13.0-17.0) g/dL Hct (39.6-50.0) % RDW (11.5-14.5) % Immature Gran # (0.00-0.04) X 10*3/uL Neutrophils # (1.80-7.70) X 10*3/uL Monocytes # (0.20-1.00) X 10*3/uL Eosinophils # (0.04-0.35) X 10*3/uL ESR (0-20) mm/Hr POC Glucose (mg/dL) 160 H (70-110) mg/dL Microbiology - Last 24 Hours (Table) 10/08/23 10:00 Acid Fast Bacilli Smear - Preliminary Knee - Left 10/08/23 10:00 Acid Fast Bacilli Smear - Preliminary Knee - Left 10/08/23 10:00 Acid Fast Bacilli Smear - Preliminary Knee - Left 10/08/23 10:00 Gram Stain - Preliminary Knee - Left 10/08/23 10:00 Gram Stain - Preliminary Knee - Left 10/08/23 10:00 Gram Stain - Preliminary Knee - Left Assessment and Plan (1) Infection of total knee replacement Current Visit: Yes Status: Acute Code(s): T84.59XA - INFECT/INFLM REACTION DUE TO OTH INTERNAL JOINT PROSTH, INIT; Z96.659 - PRESENCE OF UNSPECIFIED ARTIFICIAL KNEE JOINT SNOMED Code(s): 751122677 Plan: 1patient presented hospital with left knee septic arthritis in this patient who did have history of left knee replacement in April 2023 outpatient culture positive for oxacillin sensitive staph epi and could be related to same pathogen other etiologies not excluded 2-blood cultures currently pending did have elevated ESR of 64 and a CRP of 2.1 3-patient is afebrile pain to the left knee has decreased intensity, to continue with vancomycin pharmacy to dose target trough of 15 while watching kidney function and Vanco trough closely while waiting for the culture to finalize Dictation was produced using [employer] dictation software. please excuse any grammatical, word or spelling errors. Time with Patient: Less than 30
[2023-10-10 16:36] LABS: Glucose,Whole Blood 135 mg/dL (70-110)
[2023-10-10 21:24] LABS: Glucose,Whole Blood 155 mg/dL (70-110)
[2023-10-11 05:45] LABS: Glucose,Whole Blood 116 mg/dL (70-110)
[2023-10-11 07:24] LABS: African American GFR (CKD) >90 (>60 ml/min/1.73 sqM); Non-African American GFR(CKD) >90 (>60 ml/min/1.73 sqM)
[2023-10-11] MEDS: VANCOMYCIN TROUGH DUE 1 EACH MISC MISCELLANE ONE (07:39)
[2023-10-11 09:16] LABS: Basophils # (A) 0.05 X 10*3/uL (0.00-0.10); Basophils % (A) 0.5 %; Eosinophils # (A) 0.38 X 10*3/uL (0.04-0.35); Eosinophils % (A) 4.2 %; HCT 33.4 % (39.6-50.0); HGB 10.7 g/dL (13.0-17.0); Lymphocytes # (A) 1.52 X 10*3/uL (0.90-5.00); Lymphocytes % (A) 16.6 %; MCH 28.4 pg (27.0-32.0); MCV 88.6 FL (80.0-97.0); Mean Platelet Volume 9.8 FL (9.5-12.2); Monocytes # (A) 0.89 X 10*3/uL (0.20-1.00); Monocytes % (A) 9.7 %; NRBC Per 100 WBC 0 X 10*3/uL (0.00-0.01); Neutrophils # (A) 6.24 X 10*3/uL (1.80-7.70); Neutrophils % (A) 68.5 %; Platelet Count 300 X 10*3/uL (140-440); RBC 3.77 X 10*6/uL (4.40-5.60); WBC 9.13 X 10*3/uL (4.50-10.00)
--- NOTE | 2023-10-11 09:38 | P.PN ---
Subjective Progress Note Date: 10/11/23 Principal diagnosis: Septic arthritis left knee. 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 This is a 68-year-old male who is postop day #3 status post stage I revision total right knee arthroplasty for infection. He is stable from an orthopedic standpoint. He has no new complaints or concerns today. He has been up with assistance. Vital signs and labs are stable. He has no complaint of nausea, vomiting or diarrhea. He has been afebrile. Objective - Vital Signs Vital signs: Vital Signs Temp 97.9 F 10/11/23 07:43 Pulse 89 10/11/23 07:43 Resp 20 10/11/23 07:43 BP 164/93 10/11/23 07:43 Pulse Ox 95 10/11/23 07:43 FiO2 Intake & Output 10/10/23 10/11/23 10/11/23 18:59 06:59 18:59 Output Total 1000 1200 200 Balance -1000 -1200 -200 Output: Urine 1000 1200 200 Other: Voiding Method Toilet Urinal - Exam This is a pleasant 68-year-old male in no acute distress. He is alert and oriented x 3. Exam of the left lower extremity reveals that his Mckay wrap is intact. The wound VAC is functioning properly and appears to have a good seal. He has full foot and ankle motion without difficulty or pain. Neurovascular status to the lower extremity is intact. - Labs CBC & Chem 7: 10/11/23 05:50 10/11/23 05:50 Labs: Abnormal Lab Results - Last 24 Hours (Table) 10/10/23 10/10/23 10/10/23 Range/Units 11:57 16:34 21:24 RBC (4.40-5.60) X 10*6/uL Hgb (13.0-17.0) g/dL Hct (39.6-50.0) % RDW (11.5-14.5) % Immature Gran # (0.00-0.04) X 10*3/uL Eosinophils # (0.04-0.35) X 10*3/uL POC Glucose (mg/dL) 177 H 135 H 155 H (70-110) mg/dL 10/11/23 10/11/23 Range/Units 05:44 05:50 RBC 3.77 L (4.40-5.60) X 10*6/uL Hgb 10.7 L (13.0-17.0) g/dL Hct 33.4 L (39.6-50.0) % RDW 15.0 H (11.5-14.5) % Immature Gran # 0.05 H (0.00-0.04) X 10*3/uL Eosinophils # 0.38 H (0.04-0.35) X 10*3/uL POC Glucose (mg/dL) 116 H (70-110) mg/dL Microbiology - Last 24 Hours (Table) 10/08/23 10:00 Gram Stain - Preliminary Knee - Left Tissue Culture - Preliminary Coagulase Negative Staph 10/09/23 05:50 Blood Culture - Preliminary Blood Assessment and Plan (1) Status post revision of total replacement of left knee Current Visit: Yes Status: Acute Code(s): Z96.652 - PRESENCE OF LEFT ARTIF ICIAL KNEE JOINT SNOMED Code(s): 905080129665525 (2) Infection of total knee replacement Current Visit: Yes Status: Acute Code(s): T84.59XA - INFECT/INFLM REACTION DUE TO OTH INTERNAL JOINT PROSTH, INIT; Z96.659 - PRESENCE OF UNSPECIFIED ARTIFICIAL KNEE JOINT SNOMED Code(s): 415086146 (3) Painful total knee replacement Current Visit: Yes Status: Acute Code(s): T84.84XA - PAIN DUE TO INTERNAL ORTHOPEDIC PROSTH DEV/GRFT, INIT; Z96.659 - PRESENCE OF UNSPECIFIED ARTIFICIAL KNEE JOINT SNOMED Code(s): 075559339 Plan: The clinical findings are discussed with the patient. He is to continue with IV antibiotics per infectious disease. Cultures are showing coag negative staph. Plan discharge to home with IV antibiotics when cultures are final.
--- NOTE | 2023-10-11 11:17 | P.PN ---
Subjective Progress Note Date: 10/11/23 Principal diagnosis: Reason for follow-up is left knee septic arthritis Patient is a 68-year-old male with a past medical history of significant for diabetes mellitus hypertension hyperlipidemia osteoarthritis in this patient who did have elective left knee arthroplasty on 04/24/2023 being admitted to hospital after left knee excisional arthroplasty and antibiotic spa cer placement on 10/08/2023. On today's evaluation that is 10/11/2023, the patient continues to be afebrile, the patient is on room air and breathing comfortably, the Pt denies having any chest pain or cough, the patient denies having any abdominal pain no vomiting or any diarrhea has been reported by the nursing staff, patient has pain to the left knee area. White count is 9.13, creatinine 0.77 culture growing coagulase-negative staph sensitivity pending Objective - Vital Signs Vital signs: Vital Signs Temp 97.9 F 10/11/23 07:43 Pulse 89 10/11/23 07:43 Resp 20 10/11/23 07:43 BP 164/93 10/11/23 07:43 Pulse Ox 95 10/11/23 07:43 FiO2 Intake & Output 10/10/23 10/11/23 10/11/23 18:59 06:59 18:59 Output Total 1000 1200 200 Balance -1000 -1200 -200 Output: Urine 1000 1200 200 Other: Voiding Method Toilet Urinal - Exam GENERAL DESCRIPTION: An elderly male lying in bed in no distress RESPIRATORY SYSTEM: Unlabored breathing , decreased breath sounds at bases HEART: S1 S2 regular rate and rhythm , ABDOMEN: Soft , no tenderness EXTREMITIES: Left knee is currently dressed - Labs CBC & Chem 7: 10/11/23 05:50 10/11/23 05:50 Labs: Abnormal Lab Results - Last 24 Hours (Table) 10/10/23 10/10/23 10/10/23 Range/Units 11:57 16:34 21:24 RBC (4.40-5.60) X 10*6/uL Hgb (13.0-17.0) g/dL Hct (39.6-50.0) % RDW (11.5-14.5) % Immature Gran # (0.00-0.04) X 10*3/uL Eosinophils # (0.04-0.35) X 10*3/uL POC Glucose (mg/dL) 177 H 135 H 155 H (70-110) mg/dL 10/11/23 10/11/23 Range/Units 05:44 05:50 RBC 3.77 L (4.40-5.60) X 10*6/uL Hgb 10.7 L (13.0-17.0) g/dL Hct 33.4 L (39.6-50.0) % RDW 15.0 H (11.5-14.5) % Immature Gran # 0.05 H (0.00-0.04) X 10*3/uL Eosinophils # 0.38 H (0.04-0.35) X 10*3/uL POC Glucose (mg/dL) 116 H (70-110) mg/dL Microbiology - Last 24 Hours (Table) 10/08/23 10:00 Gram Stain - Preliminary Knee - Left Tissue Culture - Preliminary Coagulase Negative Staph 10/09/23 05:50 Blood Culture - Preliminary Blood Assessment and Plan (1) Infection of total knee replacement Current Visit: Yes Status: Acute Code(s): T84.59XA - INFECT/INFLM REACTION DUE TO OTH INTERNAL JOINT PROSTH, INIT; Z96.659 - PRESENCE OF UNSPECIFIED ARTIFICIAL KNEE JOINT SNOMED Code(s): 416655181 Plan: 1patient presented hospital with left knee septic arthritis in this patient who did have history of left knee replacement in April 2023 outpatient culture positive for oxacillin sensitive staph epi and could be related to same pathogen other etiologies not excluded 2-blood cultures currently pending, local culture growing coagulase-negative sta ph with sensitivities pending did have elevated ESR of 64 and a CRP of 2.1 3-patient is afebrile pain to the left knee has decreased intensity, to continue with vancomycin pharmacy to dose target trough of 15 while watching kidney function and Vanco trough closely while waiting for the culture to finalize, we will order PICC line for outpatient IV antibiotics Dictation was produced using [employer] dictation software. please excuse any grammatical, word or spelling errors. Time with Patient: Less than 30
[2023-10-11 11:47] LABS: Glucose,Whole Blood 112 mg/dL (70-110)
--- NOTE | 2023-10-11 14:15 | P.PN ---
Subjective Progress Note Date: 10/11/23 68 year old M with PMH hypertension, diabetes, dyslipidemia, previously underwent elective left knee arthroplasty on 04/24. 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 He underwent insertion of drug delivery device, intra-articular, articulating spacer, irrigation and excisional debridement and application of negative pressure dressing with Dr. Penaloza. [facility] Physicians consulted for medical management of this patient. Patient seen and examined after the procedure. Has not urinated yet. No bowel movement. Reports well controlled pain in the left knee. Arthrocentesis was performed in the outpatient setting grew MSSA. Currently on Vancomycin IV. 10/08 Patient was seen and examined. Pain well controlled in left knee. Urinating freely. Passing gas. No complaints. CBC WBC 13.48, Hg 10.3, Hct 32. BMP BUN 23, glu 121. CRP 2.1. Vanc trough 9.3. ID recommends following up with cultures, 6 weeks of IV antibiotics. 10/09 Patient was seen and examined. Renal function within normal limits today. Maintained on Vanomcyin dosed per pharmacy. Cultures negative so far. Reports insomnia. 10/10 Patient was seen and examined. No complaints. WCx gowing coag negative staph. Maintained on Vanomcyin dosed per pharmacy. CBC Hg 10.7 Hct 33.4. Renal function within normal limits. General: non toxic, no distress, appears at stated age Derm: warm, dry Head: atraumatic, normocephalic, symmetric Eyes: EOMI, no lid lag, anicteric sclera Mouth: no lip lesion, mucus membranes moist Cardiovascular: Good distal perfusion in all 4 extremities Lungs: Breathing comfortably, no accessory muscle use Ext: no gross muscle atrophy, no edema, no contractures Neuro: no focal neuro deficits Psych: Alert, oriented, appropriate affect Based on my assessment of this patient, this patient meets a high complexity level of care. Patient has an acute diagnosis of septic joint that poses a threat to life or bodily function. Septic arthritis with h/o left knee arthroplasty on 04/24: WCx outpatient setting grew MSSA. Continue Vancomycin dosed per pharmacy. Monitor vancomycin trough for toxicity. Follow OR cultures. ID on board Insomnia: Ambien 5 mg PO QHS PRN. Hypertension: Lisinopril 20 mg PO QD. Diabetes: ISS. Sliding scale. Accuchecks ACHS. Hypoglycemic precautions. Dyslipidemia: Lipitor 20 mg PO QD. CODE STATUS: FULL CODE DVT Prophylaxis: SCDs GI Prophylaxis: Designated medical POA if patient is not able to make medical decisions for themselves: I have reviewed the following loss prevention consultant notes: ID, Orthopedic Sx note. I have reviewed the results of the following tests: Renal function. CBC I have ordered the following tests: Renal function. I have discussed the care of this patient with the following independent historian: I have independently interpreted the following test below: I have discussed the management of this patient with the following physician: Objective - Vital Signs Vital signs: Vital Signs Temp 97.9 F 10/11/23 07:43 Pulse 89 10/11/23 07:43 Resp 20 10/11/23 07:43 BP 164/93 10/11/23 07:43 Pulse Ox 95 10/11/23 07:43 FiO2 Intake & Output 10/10/23 10/11/23 10/11/23 18:59 06:59 18:59 Output Total 1000 1200 200 Balance -1000 -1200 -200 Output: Urine 1000 1200 200 Other: Voiding Method Toilet Urinal - Labs CBC & Chem 7: 10/11/23 05:50 10/11/23 05:50 Labs: Abnormal Lab Results - Last 24 Hours (Table) 10/10/23 10/10/23 10/11/23 Range/Units 16:34 21:24 05:44 RBC (4.40-5.60) X 10*6/uL Hgb (13.0-17.0) g/dL Hct (39.6-50.0) % RDW (11.5-14.5) % Immature Gran # (0.00-0.04) X 10*3/uL Eosinophils # (0.04-0.35) X 10*3/uL POC Glucose (mg/dL) 135 H 155 H 116 H (70-110) mg/dL 10/11/23 10/11/23 Range/Units 05:50 11:46 RBC 3.77 L (4.40-5.60) X 10*6/uL Hgb 10.7 L (13.0-17.0) g/dL Hct 33.4 L (39.6-50.0) % RDW 15.0 H (11.5-14.5) % Immature Gran # 0.05 H (0.00-0.04) X 10*3/uL Eosinophils # 0.38 H (0.04-0.35) X 10*3/uL POC Glucose (mg/dL) 112 H (70-110) mg/dL Microbiology - Last 24 Hours (Table) 10/08/23 10:00 Anaerobic Culture - Preliminary Knee - Left 10/08/23 10:00 Anaerobic Culture - Preliminary Knee - Left 10/08/23 10:00 Gram Stain - Preliminary Knee - Left Tissue Culture - Preliminary Coagulase Negative Staph 10/09/23 05:50 Blood Culture - Preliminary Blood
[2023-10-11 16:44] LABS: Glucose,Whole Blood 214 mg/dL (70-110)
[2023-10-11 19:37] LABS: Glucose,Whole Blood 178 mg/dL (70-110)
[2023-10-12 06:20] LABS: Glucose,Whole Blood 124 mg/dL (70-110)
[2023-10-12 07:48] LABS: Prothrombin Time 11.3 sec (10.0-12.5)
[2023-10-12 08:05] LABS: African American GFR (CKD) >90 (>60 ml/min/1.73 sqM); Non-African American GFR(CKD) >90 (>60 ml/min/1.73 sqM)
--- NOTE | 2023-10-12 08:54 | P.PN ---
Subjective Progress Note Date: 10/12/23 Principal diagnosis: Septic arthritis left knee. 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 This is a 68-year-old male who is postop day #4 status post stage I revision total right knee arthroplasty for infection. He is stable from an orthopedic standpoint. He has no new complaints or concerns today. He has been up with assistance. Vital signs and labs are stable. He has no complaint of nausea, vomiting or diarrhea. He has been afebrile. He is scheduled for a PICC line insertion today. Objective - Vital Signs Vital signs: Vital Signs Temp 98.2 F 10/12/23 07:20 Pulse 99 10/12/23 07:20 Resp 18 10/12/23 07:20 BP 153/85 10/12/23 07:20 Pulse Ox 97 10/12/23 08:11 FiO2 Intake & Output 10/11/23 10/12/23 10/12/23 18:59 06:59 18:59 Output Total 200 700 Balance -200 -700 Output: Urine 200 700 Other: Voiding Method Toilet Urinal # Voids 3 1 # Bowel Movements 1 - Exam This is a pleasant 68-year-old male in no acute distress. He is alert and oriented x 3. Exam of the left lower extremity reveals that his Prevena wound vac is intact. The wound VAC is functioning properly and appears to have a good seal. He has full foot and ankle motion without difficulty or pain. N eurovascular status to the lower extremity is intact. - Labs CBC & Chem 7: 10/11/23 05:50 10/12/23 06:14 Labs: Abnormal Lab Results - Last 24 Hours (Table) 10/11/23 10/11/23 10/11/23 Range/Units 05:50 11:46 16:43 RBC 3.77 L (4.40-5.60) X 10*6/uL Hgb 10.7 L (13.0-17.0) g/dL Hct 33.4 L (39.6-50.0) % RDW 15.0 H (11.5-14.5) % Immature Gran # 0.05 H (0.00-0.04) X 10*3/uL Eosinophils # 0.38 H (0.04-0.35) X 10*3/uL POC Glucose (mg/dL) 112 H 214 H (70-110) mg/dL 10/11/23 10/12/23 Range/Units 19:35 06:11 RBC (4.40-5.60) X 10*6/uL Hgb (13.0-17.0) g/dL Hct (39.6-50.0) % RDW (11.5-14.5) % Immature Gran # (0.00-0.04) X 10*3/uL Eosinophils # (0.04-0.35) X 10*3/uL POC Glucose (mg/dL) 178 H 124 H (70-110) mg/dL Microbiology - Last 24 Hours (Table) 10/09/23 05:50 Blood Culture - Preliminary Blood 10/08/23 10:00 Anaerobic Culture - Preliminary Knee - Left 10/08/23 10:00 Anaerobic Culture - Preliminary Knee - Left 10/08/23 10:00 Gram Stain - Preliminary Knee - Left Tissue Culture - Preliminary Coagulase Negative Staph Assessment and Plan (1) Status post revision of total replacement of left knee Current Visit: Yes Status: Acute Code(s): Z96.652 - PRESENCE OF LEFT ARTIFICIAL KNEE JOINT SNOMED Code(s): 660849086447992 (2) Infection of total knee replacement Current Visit: Yes Status: Acute Code(s): T84.59XA - INFECT/INFLM REACTION DUE TO OTH INTERNAL JOINT PROSTH, INIT; Z96.659 - PRESENCE OF UNSPECIFIED ARTIFICIAL KNEE JOINT SNOMED Code(s): 594744722 (3) Painful total knee replacement Current Visit: Yes Status: Acute Code(s): T84.84XA - PAIN DUE TO INTERNAL ORTHOPEDIC PROSTH DEV/GRFT, INIT; Z96.659 - PRESENCE OF UNSPECIFIED ARTIFICIAL KNEE JOINT SNOMED Code(s): 268279223 Plan: The clinical findings are discussed with the patient. He is to continue with IV antibiotics per infectious disease. Cultures are showing coag negative staph. Plan discharge to home with IV antibiotics. PICC line scheduled for today. He may be discharged once PICC line is placed.
[2023-10-12 11:37] LABS: Glucose,Whole Blood 156 mg/dL (70-110)
--- NOTE | 2023-10-12 12:00 | P.PN ---
Subjective Progress Note Date: 10/12/23 patient is doing relatively well. He has been up walking and has some swelling in his leg but is otherwise without complaints. Objective - Vital Signs Vital signs: Vital Signs Temp 98.2 F 10/12/23 07:20 Pulse 99 10/12/23 07:20 Resp 18 10/12/23 07:20 BP 153/85 10/12/23 07:20 Pulse Ox 97 10/12/23 08:11 FiO2 Intake & Output 10/11/23 10/12/23 10/12/23 18:59 06:59 18:59 Output Total 200 700 Balance -200 -700 Output: Urine 200 700 Other: Voiding Method Toilet Urinal # Voids 3 1 # Bowel Movements 1 - Exam patient is sitting up at bedside. There is mild swelling throughout his left leg. His incisional wound VAC is in place with good seal. He is able to actively extend his knee. Motor and sensory function are intact in the foot. - Labs CBC & Chem 7: 10/11/23 05:50 10/12/23 06:14 Labs: Abnormal Lab Results - Last 24 Hours (Table) 10/11/23 10/11/23 10/12/23 Range/Units 16:43 19:35 06:11 POC Glucose (mg/dL) 214 H 178 H 124 H (70-110) mg/dL 10/12/23 Range/Units 11:35 POC Glucose (mg/dL) 156 H (70-110) mg/dL Microbiology - Last 24 Hours (Table) 10/09/23 05:50 Blood Culture - Preliminary Blood 10/08/23 10:00 Anaerobic Culture - Preliminary Knee - Left 10/08/23 10:00 Anaerobic Culture - Preliminary Knee - Left 10/08/23 10:00 Gram Stain - Preliminary Knee - Left Tissue Culture - Preliminary Coagulase Negative Staph Assessment and Plan Assessment: postoperative day #4 status post left knee articulating anesthetic spacer Plan: Continue treatment as outlined. Cultures are showing coag-negative staph. Infectious disease and internal medicine her following. We'll likely get his PI CC line tomorrow and can discharge home with final antibiotic recommendations from infectious disease.
--- NOTE | 2023-10-12 13:07 | P.PN ---
Subjective Progress Note Date: 10/12/23 68 year old M with PMH hypertension, diabetes, dyslipidemia, previously underwent elective left knee arthroplasty on 04/24. 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 He underwent insertion of drug delivery device, intra-articular, articulating spacer, irrigation and excisional debridement and application of negative pressure dressing with Dr. Penaloza. [facility] Physicians consulted for medical management of this patient. Arthrocentesis was performed in the outpatient setting grew MSSA. Currently on Vancomycin IV. 10/08 ID recommends following up with cultures, 6 weeks of IV antibiotics. 10/09 Maintained on Vanomcyin dosed per pharmacy. Cultures negative so far. 10/10 WCx gowing coag negative staph. Maintained on Vanomcyin dosed per pharmacy. 10/11 Patient was seen and examined. PICC line ordered. Unfortunately Vascular surgery is not here today so it will be postponed until tomorrow. WCx growing staph schleiferi. Coag panel and renal function within normal limits. General: non toxic, no distress, appears at stated age Derm: warm, dry Head: atraumatic, normocephalic, symmetric Eyes: EOMI, no lid lag, anicteric sclera Mouth: no lip lesion, mucus membranes moist Cardiovascular: Good distal perfusion in all 4 extremities Lungs: Breathing comfortably, no accessory muscle use Ext: no gross muscle atrophy, no edema, no contractures Neuro: no focal neuro deficits Psych: Alert, oriented, appropriate affect Based on my assessment of this patient, this patient meets a high complexity level of care. Patient has an acute diagnosis of septic joint that poses a threat to life or bodily function. Septic arthritis with h/o left knee arthroplasty on 04/24: WCx outpatient setting grew MSSA. Intraoperative WCx growing staph schleiferi. Continue Vancomycin dosed per pharmacy. Monitor vancomycin trough for toxicity. ID on board Insomnia: Ambien 5 mg PO QHS PRN. Hypertension: Lisinopril 20 mg PO QD. Diabetes: ISS. Sliding scale. Accuchecks ACHS. Hypoglycemic precautions. Dyslipidemia: Lipitor 20 mg PO QD. CODE STATUS: FULL CODE DVT Prophylaxis: SCDs GI Prophylaxis: Designated medical POA if patient is not able to make medical decisions for themselves: I have reviewed the following marketing regional consultant notes: ID, Orthopedic Sx note. I have reviewed the results of the following tests: Renal function. Coag panel. I have ordered the following tests: Renal function. I have discussed the care of this patient with the following independent historian: RN and case management. Objective - Vital Signs Vital signs: Vital Signs Temp 98.2 F 10/12/23 07:20 Pulse 99 10/12/23 07:20 Resp 18 10/12/23 07:20 BP 153/85 10/12/23 07:20 Pulse Ox 97 10/12/23 08:11 FiO2 Intake & Output 10/11/23 10/12/23 10/12/23 18:59 06:59 18:59 Output Total 200 700 Balance -200 -700 Output: Urine 200 700 Other: Voiding Method Toilet Urinal # Voids 3 1 # Bowel Movements 1 - Labs CBC & Chem 7: 10/11/23 05:50 10/12/23 06:14 Labs: Abnormal Lab Results - Last 24 Hours (Table) 10/11/23 10/11/23 10/12/23 Range/Units 16:43 19:35 06:11 POC Glucose (mg/dL) 214 H 178 H 124 H (70-110) mg/dL 10/12/23 Range/Units 11:35 POC Glucose (mg/dL) 156 H (70-110) mg/dL Microbiology - Last 24 Hours (Table) 10/08/23 10:00 Gram Stain - Final Knee - Left Tissue Culture - Final Staph schleiferi SS coagulans 10/08/23 10:00 Gram Stain - Final Knee - Left Tissue Culture - Final Staph schleiferi SS coagulans 10/08/23 10:00 Gram Stain - Final Knee - Left Tissue Culture - Final Staph schleiferi SS coagulans 10/09/23 05:50 Blood Culture - Preliminary Blood 10/08/23 10:00 Anaerobic Culture - Preliminary Knee - Left 10/08/23 10:00 Anaerobic Culture - Preliminary Knee - Left
[2023-10-12 16:32] LABS: Glucose,Whole Blood 133 mg/dL (70-110)
[2023-10-12 20:07] LABS: Glucose,Whole Blood 143 mg/dL (70-110)
[2023-10-13 05:36] LABS: Glucose,Whole Blood 136 mg/dL (70-110)
[2023-10-13 07:01] LABS: African American GFR (CKD) >90 (>60 ml/min/1.73 sqM); Non-African American GFR(CKD) >90 (>60 ml/min/1.73 sqM)
[2023-10-13] MEDS: ONDANSETRON 4 MG/2 ML VIAL IVP PRN (07:33)
[2023-10-13 07:57] VITALS: BP 134/76; PULSE 106; RESP 19; TEMP 98.3
[2023-10-13] MEDS: LIDOCAINE 1% INJ 10MG/ML (10 ML MDV) SQ ONE (08:00)
--- NOTE | 2023-10-13 08:06 | P.PCN ---
Date of Procedure: 10/13/23 Preoperative Diagnosis: Infected knee replacement Need for intermediate antibiotics Postoperative Diagnosis: Same Procedure(s) Performed: Right basilic vein PICC placement via ultrasound and fluoroscopic guidance Anesthesia: local Surgeon: Saúl Shook Estimated Blood Loss (ml): 2 Pathology: none sent Condition: stable Disposition: floor Description of Procedure: After written and informed consent was obtained the patient and all risks, benefits and competitions were described the patient was brought to the [facility] [employer] and laid in a supine position with his right arm outstretched on an armboard. The area of the right arm was prepped and draped in usual sterile fashion. Time out was performed in normal fashion. Utilizing ultrasound the basilic vein was visualized and shown to be compressible without any visible thrombus. Under ultrasound guidance the basilic vein was then cannulated with a micropuncture needle and wire was placed under direct visualization of fluoroscopy. Introducer sheath was then placed. The catheter was measured and cut to the appropriate length which was 43 cm. The catheter was then guided through the breakaway sheath and the sheath was removed with good positioning was visualized under fluoroscopy. The catheter was pulled and flushed easily. It was then secured in place in normal fashion. Patient tolerated the procedure well was sent back to his room for recovery.
[2023-10-13 11:08] LABS: Glucose,Whole Blood 109 mg/dL (70-110)
--- NOTE | 2023-10-13 11:39 | IR ---
EXAMINATION TYPE: IR cvc insert >=5 years DATE OF EXAM: 10/13/2023 FLUOROSCOPY ABX right PICC, 43CM, RIGHT BASILLIC, 0.4MINS, [id number]. 56 images submitted.
--- NOTE | 2023-10-13 12:08 | P.DS ---
Providers Date of admission: 10/08/23 05:34 Expected date of discharge: 10/13/23 Attending physician: Francisco Javier Penaloza Consults: 10/08/23 10:58 Consult Physician Urgent Consulting Provider: Jose A Petty Consult Reason/Comments: ID eval and antibiotic recommendation Do you want consulting provider notified?: Yes 10/08/23 10:59 Consult Physician Urgent Consulting Provider: Korin Proctor Consult Reason/Comments: Medical management Do you want consulting provider notified?: Yes Primary care physician: Stan Cordova - Discharge Diagnosis(es) (1) Infection of total knee replacement Current Visit: Yes Status: Acute (2) Painful total knee replacement Current Visit: Yes Status: Acute Hospital Course: This is a 68-year-old male who developed an 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 Patient was evaluated as an outpatient and aspiration of the left knee came back positive for staph epi. After discussion and consideration patient elects to proceed with stage I revision left total knee arthroplasty with placement of an antibiotic spacer. The patient is seen preoperatively by Dr. Penaloza and medically cleared for surgery by their primary care physician. Patient is admitted to [facility] on 10/08/2023 for stage I revision left total knee arthroplasty with placement of an antibiotic spacer. The procedure is performed without complication or sequelae. The patient is doing well postoperatively. Cultures are positive for staph. Infectious disease is managing antibiotics and the patient received a PICC line for discharge antibiotics. Labs and vital signs are stable on day of discharge. On day of discharge patient's Prevena wound VAC is intact. There is minimal soft tissue swelling to the knee. Patient has full foot and ankle motion without difficulty or pain. Calf is soft and nontender to palpation. Neurovascular status to the left lower extremity is intact. Patient is discharged home in good condition. Please see med rec for accurate list of home medications. Plan - Discharge Summary Discharge Rx Participant: No New Discharge Prescriptions: New Omeprazole 20 mg PO DAILY #30 tab Sennosides-Docusate Sodium [Senokot-S] 1 tab PO BID #60 tablet Ondansetron Odt [Zofran Odt] 4 mg PO Q8HR PRN #14 tab PRN Reason: Nausea Aspirin [Adult Low Dose Aspirin EC] 81 mg PO BID #1 tab HYDROcodone/APAP 7.5-325MG [[place] 7.5-325] 1 - 2 tab PO Q6HR PRN #32 tab PRN Reason: Pain No Action lisinopriL 20 mg PO QAM Atorvastatin [Lipitor] 20 mg PO DAILY Pioglitazone [Actos] 45 mg PO DAILY metFORMIN HCL [Glucophage] 1,000 mg PO BID Cholecalciferol [Vitamin D3 (25 Mcg = 1000 Iu)] 75 mcg PO DAILY Aspirin 81 mg PO HS Meloxicam [Mobic] 15 mg PO DAILY HYDROcodone/APAP 5-325MG [[place] 5-325] 1 tab PO Q6HR PRN PRN Reason: Pain Discharge Medication List Atorvastatin [Lipitor] 20 mg PO DAILY 01/27/19 [History] Cholecalciferol [Vitamin D3 (25 Mcg = 1000 Iu)] 75 mcg PO DAILY 01/27/19 [History] Pioglitazone [Actos] 45 mg PO DAILY 01/27/19 [History] lisinopriL 20 mg PO QAM 01/27/19 [History] metFORMIN HCL [Glucophage] 1,000 mg PO BID 01/27/19 [History] Meloxicam [Mobic] 15 mg PO DAILY 04/22/23 [History] Aspirin 81 mg PO HS 09/24/23 [History] HYDROcodone/APAP 5-325MG [[place] 5-325] 1 tab PO Q6HR PRN 09/24/23 [History] Aspirin [Adult Low Dose Aspirin EC] 81 mg PO BID #1 tab 10/08/23 [Rx] HYDROcodone/APAP 7.5-325MG [[place] 7.5-325] 1 - 2 tab PO Q6HR PRN #32 tab 10/08/23 [Rx] Omeprazole 20 mg PO DAILY #30 tab 10/08/23 [Rx] Ondansetron Odt [Zofran Odt] 4 mg PO Q8HR PRN #14 tab 10/08/23 [Rx] Sennosides-Docusate Sodium [Senokot-S] 1 tab PO BID #60 tablet 10/08/23 [Rx] Follow up Appointment(s)/Referral(s): [facility] [REFERRING] - As Needed ([facility] will deliver IV antibiotic supplies to your home on the evening of discharge from the hospital. ) [facility] [NON-STAFF] - As Needed ([facility] will call you to schedule the time for your in home nursing visits to begin IV antibiotic teaching. Your first visit will be the morning after discharge from the hospital. ) Francisco Javier Penaloza MD [Medical Doctor] - 10/19/23 2:05 pm Patient Instructions/Handouts: Revision Total Joint Arthroplasty (DC) Activity/Diet/Wound Care/Special Instructions: Keep Prevena wound vac until follow up visit. May bear weight as tolerated with walker. Keep knee immobilizer intact when ambulating.
[2023-10-14] MEDS ORDERED: VANCOMYCIN TROUGH DUE 1 EACH MISC MISCELLANE ONE (13:00)
== END 2023-10-13 14:03 | disposition home health service (06) | DRG 467 ==
LOC: 2ORMAIN 10-08 05:34 → 4SSUR 10-08 12:38
PROVIDERS: ADMIT Orthopaedic Surgery; ATTEND Orthopaedic Surgery
PROC: 0SRD0EZ Replacement of Left Knee Joint with Articulating Spacer, Open Approach (ICD-10-PCS; 2023-10-08)
PROC: 0SBD0ZZ Excision of Left Knee Joint, Open Approach (ICD-10-PCS; 2023-10-08)
PROC: 2W1RX6Z Compression of Left Lower Leg using Pressure Dressing (ICD-10-PCS; 2023-10-08)
PROC: 3E0T3BZ Introduction of Anesthetic Agent into Peripheral Nerves and Plexi, Percutaneous Approach (ICD-10-PCS; 2023-10-08)
PROC: 2W1RX6Z Compression of Left Lower Leg using Pressure Dressing (ICD-10-PCS; 2023-10-08)
PROC: 0SPD0JZ Removal of Synthetic Substitute from Left Knee Joint, Open Approach (ICD-10-PCS; principal; 2023-10-08 07:30)
PROC: 02HV33Z Insertion of Infusion Device into Superior Vena Cava, Percutaneous Approach (ICD-10-PCS; 2023-10-11)
PROC: B5181ZA Fluoroscopy of Superior Vena Cava using Low Osmolar Contrast, Guidance (ICD-10-PCS; 2023-10-11)
PROC: B548ZZA Ultrasonography of Superior Vena Cava, Guidance (ICD-10-PCS; 2023-10-11)
DX: T84.54XA Infection and inflammatory reaction due to internal left knee prosthesis, initial encounter (principal); M00.862 Arthritis due to other bacteria, left knee; Z68.41 Body mass index [BMI] 40.0-44.9, adult; T84.84XA Pain due to internal orthopedic prosthetic devices, implants and grafts, initial encounter; Y83.1 Surgical operation with implant of artificial internal device as the cause of abnormal reaction of the patient, or of later complication, without mention of misadventure at the time of the procedure; I10 Essential (primary) hypertension; E78.5 Hyperlipidemia, unspecified; E11.9 Type 2 diabetes mellitus without complications; M25.562 Pain in left knee; M25.561 Pain in right knee; Z79.1 Long term (current) use of non-steroidal anti-inflammatories (NSAID); M10.9 Gout, unspecified; W18.30XA Fall on same level, unspecified, initial encounter; B96.89 Other specified bacterial agents as the cause of diseases classified elsewhere; Z79.2 Long term (current) use of antibiotics; Z79.82 Long term (current) use of aspirin; Z79.84 Long term (current) use of oral hypoglycemic drugs; Z79.899 Other long term (current) drug therapy; Z87.891 Personal history of nicotine dependence; Z96.653 Presence of artificial knee joint, bilateral
CPT/HCPCS: 36573; 64447; 64999; 80048; 80202; 82565; 85025; 85610; 85652; 86140; 87040; 87070; 87075; 87077; 87102; 87116; 87186; 87205; 87206; 94760

== ENCOUNTER → 2023-12-30 | Outpatient (CLI) | payer MEDICARE ==
[2023-12-30 09:18] LABS: INR 0.9 (<1.2); Partial Thromboplastin Time 25.4 sec (22.0-30.0); Prothrombin Time 10.3 sec (10.0-12.5)
[2023-12-30 14:25] LABS: Basophils # (A) 0.04 X 10*3/uL (0.00-0.10); Basophils % (A) 0.6 %; Eosinophils # (A) 0.34 X 10*3/uL (0.04-0.35); Eosinophils % (A) 4.7 %; HCT 39.6 % (39.6-50.0); HGB 12.3 g/dL (13.0-17.0); Lymphocytes # (A) 1.73 X 10*3/uL (0.90-5.00); Lymphocytes % (A) 23.8 %; MCH 30.3 pg (27.0-32.0); MCHC 31.1 g/dL (32.0-37.0); MCV 97.5 FL (80.0-97.0); Mean Platelet Volume 11.5 FL (9.5-12.2); Monocytes # (A) 0.61 X 10*3/uL (0.20-1.00); Monocytes % (A) 8.4 %; NRBC Per 100 WBC 0 X 10*3/uL (0.00-0.01); Neutrophils # (A) 4.52 X 10*3/uL (1.80-7.70); Neutrophils % (A) 62.1 %; Platelet Count 257 X 10*3/uL (140-440); RBC 4.06 X 10*6/uL (4.40-5.60); RDW 15.5 % (11.5-14.5); WBC 7.27 X 10*3/uL (4.50-10.00)
[2023-12-30 15:07] LABS: ALT 21 U/L (10-49); AST 20 U/L (14-35); Albumin 4.4 g/dL (3.8-4.9); Albumin/Globulin Ratio 1.69 Ratio (1.60-3.17); Alkaline Phosphatase 86 U/L (41-126); BUN/Creat Ratio 15.92 Ratio (12.00-20.00); Blood Urea Nitrogen 19.1 mg/dL (9.0-27.0); Calcium 9.6 mg/dL (8.7-10.3); Carbon Dioxide 26.8 mmol/L (21.6-31.8); Chloride 102 mmol/L (96-109); Globulin 2.6 g/dL (1.6-3.3); Glucose 133 mg/dL (70-110); Potassium 4.7 mmol/L (3.5-5.5); Sodium 141 mmol/L (135-145); Total Bilirubin 0.3 mg/dL (0.3-1.2)
== END | disposition home or self-care (01) ==
LOC: LABPAT 08:19
PROVIDERS: ATTEND Orthopaedic Surgery
DX: Z01.812 Encounter for preprocedural laboratory examination (principal); Z22.322 Carrier or suspected carrier of Methicillin resistant Staphylococcus aureus; M17.12 Unilateral primary osteoarthritis, left knee; E11.9 Type 2 diabetes mellitus without complications
CPT/HCPCS: 36415; 80053; 83036; 85025; 85610; 85730; 87070

== ENCOUNTER 2024-01-08 09:15 | Inpatient (IN) | payer MEDICARE ==
[2024-01-05 10:47] VITALS: BMI 42.3
[~2024-01-08 09:15] MED LIST changes: +HYDROmorphone 0.5 MG/0.5 ML SYRINGE IVP PRN; +ONDANSETRON 4 MG/2 ML VIAL IVP PRN; +TRANEXAMIC 1,000 MG/100ML-NACL 1,000 MG in SALINE 1 100ML.BAG IV PRN; +TRANEXAMIC 1,000 MG/100ML-NACL 1,000 MG in SALINE 1 100ML.BAG IVPB PRN; -ceFAZolin 3 GM in SODIUM CHLORIDE 0.9% 100 ML IVPB PRN
[2024-01-08 09:46] LABS: Glucose,Whole Blood 116 mg/dL (70-110)
[2024-01-08] MEDS: IV FLUID CONTINUATION 1,000 ML IV ONE (09:47)
[2024-01-08] MEDS: LACTATED RINGERS 1,000 ML IV SCH (09:48)
[2024-01-08] MEDS: DEXAMETHASONE SOD PHOSPHATE 10 MG/ML 1 ML VIAL IV PRN (09:54)
[2024-01-08] MEDS: KETOROLAC 15 MG/ML 1 ML VIAL IVP PRN (09:54)
[2024-01-08] MEDS: ONDANSETRON 4 MG/2 ML VIAL IVP ONE (09:54)
[2024-01-08] MEDS: FAMOTIDINE 20 MG/2 ML VIAL IVP PRN (09:54)
[2024-01-08] MEDS: ACETAMINOPHEN TAB 500 MG TAB PO PRN (09:55)
[2024-01-08] MEDS: DOCUSATE 100 MG CAP PO PRN (10:12)
[2024-01-08] MEDS: oxyCODONE ER 10 MG TAB.ER.12H PO PRN (10:12)
[2024-01-08] MEDS: MIDAZOLAM 2 MG/2 ML VIAL IVP ONE (10:32)
[2024-01-08] MEDS: fentaNYL (PF) 50 MCG/1 ML VIAL IVP ONE (10:32)
--- NOTE | 2024-01-08 11:25 | P.ANPRN ---
Procedure Note - Anesthesia - Nerve Block Performed Left Adductor Canal Single Time Out Performed: Yes (1031) Date of Procedure: 01/08/24 Procedure Start Time: 10:32 Procedure Stop Time: 10:36 Location of Patient: PreOp Indication: Acute Post-Operative Pain, Requested by Surgeon Specifically requested for management of pain by DrArgenis: Francisco Javier Penaloza Sedation Type: Sedate with meaningful contact maintained Preparation: Sterile Prep Position: Supine Catheter: None Needle Types: Pajunk Needle Gauge: 21 Ultrasound used to visualize needle placement: Yes Ultrasound used to observe medication spread: Yes Injectate: 0.5% Ropivacaine (see comment for volume) (20cc) Blood Aspirated: No Pain Paresthesia on Injection Noted: No Resistance on Injection: Normal Image Stored and Saved: Yes Events: Uneventful and Well Tolerated
--- NOTE | 2024-01-08 11:26 | P.ANPRN ---
Procedure Note - Anesthesia - Nerve Block Performed Left iPack Single Time Out Performed: Yes (1031) Date of Procedure: 01/08/24 Procedure Start Time: 10:36 Procedure Stop Time: 10:38 Location of Patient: PreOp Indication: Acute Post-Operative Pain, Requested by Surgeon Specifically requested for management of pain by DrArgenis: Francisco Javier Penaloza Sedation Type: Sedate with meaningful contact maintained Preparation: Sterile Prep Position: Supine Catheter: None Needle Types: Pajunk Needle Gauge: 21 Ultrasound used to visualize needle placement: Yes Ultrasound used to observe medication spread: Yes Injectate: 0.5% Ropivacaine (see comment for volume) (20cc) Blood Aspirated: No Pain Paresthesia on Injection Noted: No Resistance on Injection: Normal Image Stored and Saved: Yes Events: Uneventful and Well Tolerated
[2024-01-08] MEDS ORDERED: TRANEXAMIC 1,000 MG/100ML-NACL PREMIX BAG ONE (13:35)
[2024-01-08] MEDS ORDERED: PHENYLEPHRINE 10 MG/ML VIAL ONE (13:35)
[2024-01-08] MEDS ORDERED: ROPIVACAINE 5 MG/ML 30 ML VIAL ONE (13:35)
[2024-01-08] MEDS ORDERED: SUCCINYLCHOLINE CHLORIDE 200 MG/10 ML VIAL IV ONE (13:35)
[2024-01-08] MEDS ORDERED: PROPOFOL 10 MG/ML 20 ML VIAL IV ONE (13:35)
[2024-01-08] MEDS ORDERED: fentaNYL (PF) 50 MCG/ML 2 ML AMP ONE (13:35)
[2024-01-08] MEDS ORDERED: MIDAZOLAM 2 MG/2 ML VIAL ONE (13:35)
[2024-01-08] MEDS ORDERED: ROCURONIUM 10 MG/ML (5 ML VIAL) IV ONE (13:35)
[2024-01-08] MEDS: ceFAZolin 3 GM in SODIUM CHLORIDE 0.9% 100 ML IVPB PRN (13:38)
[2024-01-08] MEDS: ROPIVACAINE/EPI/CLONIDINE/KET 50 ML SYRINGE MISCELLANE PRN (14:06)
[2024-01-08] MEDS: VANCOMYCIN 1,000 MG VIAL MISCELLANE ONE (14:06)
[2024-01-08] MEDS: LACTATED RINGERS 1,000 ML IV ONE ×2 (15:48→16:24)
[2024-01-08] MEDS ORDERED: NALOXONE 0.4 MG/ML 1 ML VIAL IV PRN (16:33)
[2024-01-08] MEDS ORDERED: MAGNESIUM HYDROXIDE 2,400 MG/30 ML CUP PO PRN (16:33)
[2024-01-08] MEDS ORDERED: HYDROmorphone 0.5 MG/0.5 ML SYRINGE IVP PRN (16:33)
[2024-01-08] MEDS ORDERED: hydrOXYzine pamoate 25 MG CAP PO PRN (16:33)
[2024-01-08] MEDS ORDERED: HYDROcodone/APAP 5-325MG 1 EACH TAB PO PRN (16:33)
[2024-01-08] MEDS ORDERED: NA PHOS,M-B/NA PHOS,DI-BA 133 ML ENEMA RECTAL PRN (16:33)
[2024-01-08] MEDS ORDERED: bisacodyL 10 MG SUPP RECTAL PRN (16:33)
--- NOTE | 2024-01-08 16:56 | P.OP ---
Date of Procedure: 01/08/24 Preoperative Diagnosis: 1. 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 Type 2 diabetes 3. BMI 42.5 Postoperative Diagnosis: same Procedure(s) Performed: 1. Reimplantation revision left total knee arthroplasty as part of a staged procedure, complex 2. Elevation and local advancement of adjacent tissue flap as part of complex closure for coverage of implant/bone, left knee 3. Removal, nonbiodegradable drug delivery implant, left knee Modifier 22 for increased procedural complexity: Justification: This operation required significantly more time, work, and procedural complexity than a standard primary or revision total joint arthroplasty. Specifically the prior traumatic changes and or surgical procedure left a significantly altered surgical field with resultant scar tissue, adhesions, and altered anatomy that required a longer and more difficult and complex surgical dissection. This patient required: Extensile exposure requiring meticulous and extensive debridement due to prior failed surgery and contractures Technically demanding removal of prior hardware Significantly prolonged operative time Increased BMI (42.5) and challenging body habitus All of the above result in a physically and mentally challenging operative procedure that in my professional opinion necessitates a 30% increase above standard the schedule Implants: 1. [place] triathlon TS size #5 femoral component with 5 mm distal medial augment and 12 x 50 cemented stem 2. [place] triathlon universal baseplate size #5 with 12 x 50 cemented stem 3. [place] size B tibial cone 4. [place] triathlon TS polyethylene liner size #5, 13 mm Anesthesia: [facility] Surgeon: Francisco Javier Penaloza Lofter #1: Solange Dang Lofter #2: Abhi Veliz Estimated Blood Loss (ml): 200 IV fluids (ml): 1,300 Pathology: other (Deep cultures x 3) Condition: stable Disposition: PACU Indications for Procedure: the patient is a very pleasant 68-year-old male with a medical history significant of having a BMI above 40 and type 2 diabetes who had a infected left total knee replacement. He previously underwent removal of his implant and puma cement of an articulating antibiotic spacer. His cultures came back positive for MSSE. He received 6 weeks of IV antibiotics. After a two-week holiday off antibiotics his knee was aspirated and cultures were negative and he had a normal cell count. We discussed proceeding with removal of his antibiotic spacer and reimplantation of the knee replacement. We discussed the potential risks and complications of surgery including but certainly not limited to risks from anesthesia, superficial or deep infection, continued periprosthetic joint infection, instability, stiffness, fracture, delayed wound healing, dislocation, patellar maltracking, need for further surgery, DVT, PE, other medical complications, and inability to regain preinjury level of function, and possibly loss of life or limb. The patient and his understand and analogies potential risks particularly recurrent infection. They provided both her verbal and written consent to go forward with surgery. Operative Findings: no sign of purulence or infection. Multiple deep cultures were taken. Description of Procedure: the patient was identified in preoperative holding and the correct left knee was marked with my initials. I reviewed the consent form with the patient and all of his questions were answered. A block was given by anesthesia. The patient was then brought back to the operating room by anesthesia. He was positioned on the OR table or a general anesthetic and preoperative antibiotics were given. A tourniquet was applied the proximal aspect of the left leg. The leg was positioned for surgery. The right leg was secured to the table with foam and tape. The left leg was then prepped and draped in the standard sterile fashion. Prior to starting surgery timeout was performed identifying the correct patient, operative extremity, and procedure. The patient's leg was then elevated for 2 minutes and exsanguinated. The tourniquet was then inflated to 300 mmHg. I began by making a straight anterior incision using his scar over the anterior knee. The incision was extended proximally and distally 1 cm to allow identification of normal fascial planes. A subfascial medial flap was elevated. A medial parapatellar arthrotomy was then performed. There is a small amount of clear red fluid within the joint which was swabbed and sent for culture. I then performed an extensive debridement of both the medial and lateral gutter down to the intermuscular septum. Tissue was sent for culture. There was no sign of purulence or deep infection. Due to adhesions and the patient's body habitus it required extensive and meticulous surgical technique to expose and remove the implants. I began with the femoral component. The cement at the pe riphery of the femoral implant was debonded with an osteotome. Using a reciprocating saw I carefully develop the interval between the implant and cement. With the knee hyperflexed I was able to gently use a bone tamp and mallet to remove the femoral component with minimal bone loss. Attention was then turned to the tibia. Retractors were placed and the tibia was subluxed anteriorly. I was easily able to remove both the polyethylene liner and dowel of cement in the tibia. cement at the tibia was then removed with an osteotome and pneumatic ignacio. Tissue from the tibial canal was then debrided and sent for cultures. I then reamed until I had good diaphyseal fit. Using an intramedullary guide a freshen up cut of the tibia was made with a saw capture and sagittal saw. I then reamed for a size B cone. I sized the tibia to a 5 baseplate. A size 5 trial baseplate and 12 x 50 mm stem and trial cone were placed in the tibia. Attention was then turned to the femur. I sized the femur to a size 5. I gained entrance to the canal with an intramedullary reamer. I then sequentially reamed until I had diaphyseal fit. I then made a cut on the distal femur using the intramedullary guide. The 4-in-1 cut block was then placed over the intramedullary guide and the rotation was set to the epicondylar access. I used an eric wing to confirm no notching. I then made all 4 cuts with a sagittal saw. Following all 4 cuts the box cutting guide was used to create the box using a reciprocating saw. I then used a size 5 femoral trial with short stem and different augments until I was happy with the balance of the knee. All trial implants were removed. The knee was thoroughly irrigated. Cement restrictors were placed in both the tibia and femur. Final implants were dispensed. I used staged cementing of both the tibia and femur starting with the tibia. The size B cone was tapped into place. I then used 3 bags of Simplex antibiotic cement with 3 g of vancomycin added. Cement was pressurized into the tibia and the tibial component was gently tapped into place and held until all cement hardened. While the cement was hardening all extra cement was removed. Attention was then turned to the femur. 3 bags of Simplex cement with antibiotics and an additional 3 g of vancomycin was mixed and then pressurized using a cement gun into the femur. The femoral component was gently tapped into place. A 13 mm CR trial polyliner was placed and the knee was held in extension until all cement had set. Once all cement had hardened the knee felt stable and a final 13 mm PS Rosalie was placed, the locking mechanism engaged and the metallic post placed in the liner. The knee felt stable throughout the arc of motion. The tourniquet was let down and all bleeders were controlled with electrocautery.the knee was rinsed with a dilute Betadine wash and Irrisept. The knee was then irrigated with 3 L of sterile saline using pulsatile lavage. 3 g of vancomycin powder was placed deep within the wound.the knee was closed in layers and a sterile dressing was applied. I verified that all instrument, sponge, and sharp counts were correct. The patient was then awoken from his a nesthetic and transferred from the OR table to a rney, and brought to recovery having tolerated the procedure well. Solange Dang PA-C and Abhi Veliz PA-C were required the skilled assistance due to the complexity of surgery for patient positioning, draping, exposure, removal of implants, closure of wound, and application of dressing. PLAN: the patient is going to be admitted likely for 2 days. He can weight-bear as tolerated on his left knee pending x-rays. He will be started on aspirin for DVT prophylaxis. We will start the patient on Ancef for antibiotic given his final cultures at his infection in September. We will also consult Dr. Petty infectious disease to both follow cultures and make recommendations on antibiotics. I have a low index of suspicion of infection and he will likely need to be discharged on long-term oral antibiotic suppression. I would like at least 6 months to a year. I will defer to Dr. Petty for choice of antibiotic in route of administration. Internal medicine was also been consulted for perioperative medical management.
[2024-01-08 17:44] LABS: Glucose,Whole Blood 155 mg/dL (70-110)
--- NOTE | 2024-01-08 18:32 | XR ---
EXAMINATION TYPE: XR knee limited LT DATE OF EXAM: 01/08/2024 6:02 PM CLINICAL INDICATION:Male, 68 years old with history of Evaluation for Postop abnormality and alignmen t; [facility] COMPARISON: 09/29/2023. TECHNIQUE: XR knee limited LT; examined in Frontal, lateral and oblique projections. FINDINGS: Status post total knee arthroplasty changes with hardware in appropriate alignment and in tact. No evidence of fracture. Subcutaneous lucencies and lucencies within the joint consistent with surgical changes. IMPRESSION: Status post revision total knee arthroplasty changes with hardware intact and appropriate alignment. No fractures identified.
[2024-01-08] MEDS: SODIUM CHLORIDE 0.9% 1,000 ML IV SCH (18:46)
[2024-01-08] MEDS: ONDANSETRON 4 MG/2 ML VIAL IVP PRN (18:46)
[2024-01-08 20:40] LABS: Glucose,Whole Blood 152 mg/dL (70-110)
[2024-01-08] MEDS ORDERED: DEXTROSE 50% SYRINGE 50 ML IVP PRN ×2 (21:12)
[2024-01-08] MEDS: INSULIN ASPART (NovoLOG) 100 UNIT/ML VIAL SQ SCH (21:35)
[2024-01-08] MEDS: SENNOSIDES-DOCUSATE SODIUM 1 EACH TAB PO SCH (21:36)
[2024-01-08] MEDS: ASPIRIN 81 MG PO SCH (21:36)
[2024-01-08 21:39] LABS: Glucose,Whole Blood 145 mg/dL (70-110)
[2024-01-08] MEDS: ceFAZolin 3 GM in SODIUM CHLORIDE 0.9% 100 ML IVPB SCH (21:57)
[2024-01-09 02:16] LABS: Glucose,Whole Blood 128 mg/dL (70-110)
--- NOTE | 2024-01-09 04:45 | P.CONS ---
History of Present Illness - Reason for Consult Consult date: 01/08/24 Postoperative medical management - Chief Complaint Left total knee replacement - History of Present Illness 68-year-old male with hypertension diabetes mellitus Patient has history of infected left knee hardware went through complex stage surgeries and today he was here for reimplantation he tolerated procedure well no observed immediate postoperative complications denies any chest pain or tro uble breathing he tolerated p.o. intake she already ambulated with assistance using walker. He urinated fine. Patient denies tobacco smoking illicit drugs or heavy alcohol review of systems Pertinent positives as noted in HPI. All other systems were reviewed and are negative on exam Constitutional: No acute distress, conversant, pleasant Eyes: Anicteric sclerae, moist conjunctiva, Pupils equal round reactive to light ENMT: NC/AT Oropharynx clear, no erythema, or exudates Lungs: Clear to auscultation Clear to percussion Normal respiratory effort, no accessory muscle use Cardiovascular: Heart regular in rate and rhythm, No murmurs, gallops, or rubs No peripheral edema Abdominal: Soft Nontender, no guarding, rebound or rigidity Abdomen moving with respiration Normoactive bowel sounds Extremities: No digital cyanosis No clubbing Pedal pulses intact and symmetrical Radial pulses intact and symmetrical No calf tenderness Psychiatric: Alert and oriented to person, place and time Appropriate affect fair judgement Neuro Muscles Strength 5/5 in all 4 extremities with limitations of her left lower extremity secondary to knee surgery Sensation to light touch grossly present throughout Cranial nerves II-XII grossly intact 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-had wound vac Apr 2023, hx gout History of Any Multi-Drug Resistant Organisms: None Reported Past Surgical History: Joint Replacement, Orthopedic Surgery, Tonsillectomy Additional Past Surgical History / Comment(s): VASECTOMY, growth removed from rt abdomen, left knee replacement,ORIF left ankle Past Anesthesia/Blood Transfusion Reactions: No Reported Reaction Additional Past Anesthesia/Blood Transfusion Reaction / Comm: no hx blood transfusion Past Psychological History: No Psychological Hx Reported Smoking Status: Former smoker Past Alcohol Use History: None Reported Additional Past Alcohol Use History / Comment(s): quit smoking 1982,started smoking at age 16,>1ppd Past Drug Use History: None Reported - Past Family History Mother Family Medical History: No Reported History Medications and Allergies Home Medications Medication Instructions Recorded Confirmed Type Atorvastatin [Lipitor] 20 mg PO DAILY 01/27/19 01/08/24 History Cholecalciferol [Vitamin D3 (25 75 mcg PO DAILY 01/27/19 01/08/24 History Mcg = 1000 Iu)] lisinopriL 20 mg PO QAM 01/27/19 01/08/24 History metFORMIN HCL [Glucophage] 1,000 mg PO BID 01/27/19 01/08/24 History Aspirin [Adult Low Dose Aspirin EC] 81 mg PO BID #1 tab 10/08/23 01/08/24 Rx Meloxicam [Mobic] 15 mg PO DAILY 01/05/24 01/08/24 History Aspirin 81 mg PO BID #60 tab 01/08/24 Rx Diclofenac Sodium [Voltaren] 75 mg PO BID #60 tab 01/08/24 Rx Docusate [Colace] 100 mg PO BID #60 capsule 01/08/24 Rx HYDROcodone/APAP 10-325MG [[place] 1 tab PO Q6HR PRN 3 Days #32 tab 01/08/24 Rx 10-325] Omeprazole 40 mg PO DAILY #30 cap 01/08/24 Rx Allergies Allergy/AdvReac Type Severity Reaction Status Date / Time bee pollen Allergy Swelling Verified 01/08/24 09:24 silk Allergy had Verified 01/08/24 09: infection from silk sutures Physical Exam Vitals: Vital Signs Temp Pulse Resp BP BP BP Pulse Ox 01/09/24 02:11 98.7 F 89 20 156/76 97 01/08/24 20:45 95 123/78 95 01/08/24 20:30 94 116/76 95 01/08/24 20:15 92 110/72 95 01/08/24 20:00 94 114/74 95 01/08/24 19:45 97 112/74 95 01/08/24 19:30 97 122/78 96 01/08/24 19:15 99 126/80 96 01/08/24 19:00 98 124/81 95 01/08/24 18:45 109 H 17 153/90 95 01/08/24 18:30 98 16 143/68 96 01/08/24 18:15 99 16 137/58 96 01/08/24 17:58 100 14 152/69 94 L 05/31/24 17:43 101 H 14 134/62 99 01/08/24 17:28 107 H 16 129/64 98 01/08/24 13:17 72 14 121/59 99 01/08/24 10:41 85 16 120/58 98 01/08/24 09:31 97.5 F L 83 16 146/88 96 Intake and Output 01/08/24 01/08/24 01/09/24 14:59 22:59 06:59 Intake Total 1100 600 Output Total 200 Balance 1100 400 Intake: IV 1100 600 Output: Estimated Blood Loss 200 Other: Weight 123.2 kg 123.2 kg Results Labs: Abnormal Lab Results - Last 24 Hours (Table) 01/08/24 01/08/24 01/08/24 Range/Units 09:44 17:43 20:38 POC Glucose (mg/dL) 116 H 155 H 152 H (70-110) mg/dL 01/08/24 01/09/24 Range/Units 21:35 02:11 POC Glucose (mg/dL) 145 H 128 H (70-110) mg/dL Assessment and Plan Assessment: Diabetes mellitus Insulin sliding scale Check blood sugar ACHS and 2 AM Goal for tight blood sugar control Hypertension Controlled Continue with lisinopril 20 mg daily Hyperlipidemia Continue with atorvastatin Left total knee replacement hardware reimplantation postoperative day 0 Management per orthopedics No blood work available at this time Check CBC and BMP in the morning Patient overall stable from medical standpoint Thank you for this consultation
[2024-01-09 05:40] LABS: Glucose,Whole Blood 109 mg/dL (70-110)
--- NOTE | 2024-01-09 07:38 | P.PN ---
Subjective Progress Note Date: 01/09/24 patient is doing relatively well this morning. He has some discomfort in his left knee. He is otherwise without complaints. Objective - Vital Signs Vital signs: Vital Signs Temp 98.7 F 01/09/24 02:11 Pulse 89 01/09/24 02:11 Resp 20 01/09/24 02:11 BP 156/76 01/09/24 02:11 Pulse Ox 95 01/09/24 05:07 FiO2 Intake & Output 01/08/24 01/09/24 01/09/24 18:59 06:59 18:59 Intake Total 1700 Output Total 200 Balance 1500 Weight 123.2 kg 123.2 kg Intake: IV 1700 Output: Estimated Blood Loss 200 Other: # Voids 1 - Exam patient is resting comfortably in his bed. He is alert and able to answer questions. The dressing over the anterior aspect of his knee is intact. His thigh and calf are soft. Femoral nerve function is intact. He is able to actively plantarflex and dorsiflex his ankle and his toes. - Labs Labs: Abnormal Lab Results - Last 24 Hours (Table) 01/08/24 01/08/24 01/08/24 Range/Units 09:44 17:43 20:38 POC Glucose (mg/dL) 116 H 155 H 152 H (70-110) mg/dL 01/08/24 01/09/24 Range/Units 21:35 02:11 POC Glucose (mg/dL) 145 H 128 H (70-110) mg/dL Assessment and Plan Assessment: postoperative day #1 status post left revision knee arthroplasty History of left infected total knee replacement status post explant an articulating antibiotic spacer Type 2 diabetes BMI 42.5 Plan: 1. Weightbearing as tolerated on the operative extremity. Up with assistance. 2. DVT prophylaxis with aspirin 81 mg twice a day 3. Physical therapy for gait training and mobilization 4. Internal medicine for perioperative medical management 5. Infectious disease consultation. Cultures pending. Low suspicion of continued infection, but will follow cultures. Will need joint terminal attack controller oral supression if cultures negative. 6. Disposition: Discharge when cleared by Infectious disease, likely when cultures finalize.
[2024-01-09] MEDS: ATORVASTATIN 20 MG TAB PO SCH (08:25)
[2024-01-09] MEDS: HYDROcodone/APAP 10-325MG 1 EACH TAB PO PRN (08:25)
[2024-01-09] MEDS: lisinopriL 20 MG TAB PO SCH (08:25)
[2024-01-09 09:39] LABS: ALT 15 U/L (10-49); AST 21 U/L (14-35); Albumin 3.8 g/dL (3.8-4.9); Albumin/Globulin Ratio 1.81 Ratio (1.60-3.17); Alkaline Phosphatase 70 U/L (41-126); BUN/Creat Ratio 20.31 Ratio (12.00-20.00); Blood Urea Nitrogen 26.4 mg/dL (9.0-27.0); Calcium 8.8 mg/dL (8.7-10.3); Carbon Dioxide 26.1 mmol/L (21.6-31.8); Chloride 104 mmol/L (96-109); Globulin 2.1 g/dL (1.6-3.3); Glucose 103 mg/dL (70-110); Potassium 4.9 mmol/L (3.5-5.5); Sodium 140 mmol/L (135-145); Total Bilirubin <0.2 mg/dL (0.3-1.2); Total Protein 5.9 g/dL (6.2-8.2)
[2024-01-09 09:43] LABS: Basophils # (A) 0.03 X 10*3/uL (0.00-0.10); Basophils % (A) 0.2 %; Eosinophils # (A) 0.01 X 10*3/uL (0.04-0.35); Eosinophils % (A) 0.1 %; HCT 34.5 % (39.6-50.0); HGB 10.8 g/dL (13.0-17.0); Lymphocytes # (A) 1.26 X 10*3/uL (0.90-5.00); Lymphocytes % (A) 9.5 %; MCHC 31.3 g/dL (32.0-37.0); MCV 95.8 FL (80.0-97.0); Mean Platelet Volume 10.3 FL (9.5-12.2); Monocytes # (A) 1.29 X 10*3/uL (0.20-1.00); Monocytes % (A) 9.7 %; NRBC Per 100 WBC 0 X 10*3/uL (0.00-0.01); Neutrophils # (A) 10.68 X 10*3/uL (1.80-7.70); Platelet Count 228 X 10*3/uL (140-440); RDW 15.3 % (11.5-14.5); WBC 13.33 X 10*3/uL (4.50-10.00)
[2024-01-09 11:46] LABS: Glucose,Whole Blood 165 mg/dL (70-110)
[2024-01-09] MEDS: MULTIVITAMINS, THERA 1 EACH TAB PO SCH (11:54)
--- NOTE | 2024-01-09 13:25 | P.PN ---
Subjective Progress Note Date: 01/09/24 Patient is a 68-year-old male with known diabetes mellitus type 2 on oral medications, hypertension, and dyslipidemia who presented to the hospital for reimplantation of left total knee arthroplasty as part of a staged procedure for prior infection. Patient tolerated the procedure well but did have some postoperative nausea. Patient seen and examined at bedside. He denies any current nausea, vomiting, chest pain, shortness of breath. Pain is well-controlled. He was up and walking in the hallway today. He reports that his blood sugars are typically well-controlled at home and around 90 when he test them. We had extensive discussion we will resume his metformin tonight as there is no additional plans for IV dye use and anticipate discharge home soon with normal appetite functioning currently. Vital signs reviewed General: Nontoxic, no distress, appears at stated age Cardiovascular: S1S2 reg, no murmur Lungs: CTA bilateral, no rhonchi, no rales, no accessory muscle use Abdominal: Soft, nontender to palpation, no guarding Psych: Alert, oriented, appropriate affect Assessment/Plan: 68-year-old male status post-left total knee arthroplasty, revision with explant of antibiotic spacer. -Await infectious disease consultation -Patient did have cultures taken intraoperatively -Patient on cefazolin 3 g IV piggyback every 8 hours Diabetes mellitus type 2 -Resume metformin 1000 mg twice daily -Continue with sliding scale insulin -A1c 6 Acute blood loss anemia, anticipated outcome of surgery -Preoperative hemoglobin 12.3 -Follow CBC -No indication for transfusion -Start ferrous sulfate 325 mg once daily Hypertension Dyslipidemia -Lisinopril 20 mg daily, Lipitor 20 mg daily -Follow-up blood pressures Imaging: None new Data Review: Labs reviewed from today include CBC and complete metabolic profile which are remarkable for white blood cell count 13.3, hemoglobin 10.8. Thank you for allowing us to participate in the care of this pleasant patient. Do not hesitate to contact us with questions. Someone can be reached from the [facility] hospitalist group all hours of the day at [phone] or via [employer]. This dictation was prepared using [employer] voice recognition software. Though every attempt is made to correct errors during dictation some may still exist. Objective - Vital Signs Vital signs: Vital Signs Temp 97.8 F 01/09/24 06:53 Pulse 81 01/09/24 06:53 Resp 19 01/09/24 06:53 BP 101/65 01/09/24 06:53 Pulse Ox 94 L 01/09/24 06:53 FiO2 Intake & Output 01/08/24 01/09/24 01/09/24 18:59 06:59 18:59 Intake Total 1700 Output Total 200 Balance 1500 Weight 123.2 kg 123.2 kg Intake: IV 1700 Output: Estimated Blood Loss 200 Other: # Voids 1 - Labs CBC & Chem 7: 01/09/24 06:39 01/09/24 06:39 Labs: Abnormal Lab Results - Last 24 Hours (Table) 01/08/24 01/08/24 01/08/24 Range/Units 17:43 20:38 21:35 WBC (4.50-10.00) X 10*3/uL RBC (4.40-5.60) X 10*6/uL Hgb (13.0-17.0) g/dL Hct (39.6-50.0) % MCHC (32.0-37.0) g/dL RDW (11.5-14.5) % Immature Gran # (0.00-0.04) X 10*3/uL Neutrophils # (1.80-7.70) X 10*3/uL Monocytes # (0.20-1.00) X 10*3/uL Eosinophils # (0.04-0.35) X 10*3/uL Est GFR (CKD-EPI) (>=60) BUN/Creatinine Ratio (12.00-20.00) Ratio POC Glucose (mg/dL) 155 H 152 H 145 H (70-110) mg/dL Total Bilirubin (0.3-1.2) mg/dL Total Protein (6.2-8.2) g/dL 01/09/24 01/09/24 01/09/24 Range/Units 02:11 06:39 06:39 WBC 13.33 H (4.50-10.00) X 10*3/uL RBC 3.60 L (4.40-5.60) X 10*6/uL Hgb 10.8 L (13.0-17.0) g/dL Hct 34.5 L (39.6-50.0) % MCHC 31.3 L (32.0-37.0) g/dL RDW 15.3 H (11.5-14.5) % Immature Gran # 0.06 H (0.00-0.04) X 10*3/uL Neutrophils # 10.68 H (1.80-7.70) X 10*3/uL Monocytes # 1.29 H (0.20-1.00) X 10*3/uL Eosinophils # 0.01 L (0.04-0.35) X 10*3/uL Est GFR (CKD-EPI) 59 L (>=60) BUN/Creatinine Ratio 20.31 H (12.00-20.00) Ratio POC Glucose (mg/dL) 128 H (70-110) mg/dL Total Bilirubin <0.2 L (0.3-1.2) mg/dL Total Protein 5.9 L (6.2-8.2) g/dL 01/09/24 Range/Units 11:44 WBC (4.50-10.00) X 10*3/uL RBC (4.40-5.60) X 10*6/uL Hgb (13.0-17.0) g/dL Hct (39.6-50.0) % MCHC (32.0-37.0) g/dL RDW (11.5-14.5) % Immature Gran # (0.00-0.04) X 10*3/uL Neutrophils # (1.80-7.70) X 10*3/uL Monocytes # (0.20-1.00) X 10*3/uL Eosinophils # (0.04-0.35) X 10*3/uL Est GFR (CKD-EPI) (>=60) BUN/Creatinine Ratio (12.00-20.00) Ratio POC Glucose (mg/dL) 165 H (70-110) mg/dL Total Bilirubin (0.3-1.2) mg/dL Total Protein (6.2-8.2) g/dL
[2024-01-09] MEDS: FERROUS SULFATE 325 MG TAB PO SCH (14:08)
[2024-01-09 16:20] LABS: Glucose,Whole Blood 111 mg/dL (70-110)
[2024-01-09 20:51] LABS: Glucose,Whole Blood 117 mg/dL (70-110)
[2024-01-09] MEDS: metFORMIN 500 MG TAB PO SCH (21:43)
--- NOTE | 2024-01-09 22:30 | P.CONS ---
History of Present Illness - Reason for Consult Consult date: 01/09/24 Second stage revision past infection Requesting physician: Francisco Javier Penaloza - Chief Complaint Left knee pain x few days - History of Present Illness Patient is a 68-year-old male with a past medical history significant for hypertension hyperlipidemia and diabetes mellitus osteoarthritis, patient did have a left knee septic arthritis for the patient did have a stage I procedure back in September 2023 cultures were positive for oxacillin sensitive Staphylococcus species for the patient has completed IV antibiotic therapy patient also have a recent left knee aspirate on 12/09/2023 and those has been negative patient has been electively admitted to the hospital yesterday after the patient did undergo stage II procedure with removal of the nonbiodegradable drug delivery implant and revision left total knee arthroplasty OR culture has been obtained patient has been empirically started perioperative on cefazolin infectious was consulted today for further management of antibiotic therapy and need for suppressive antibiotics to prevent recurrent infection. Patient on presentation to the hospital was afebrile and no fever has been recorded subsequently patient denies having any URI symptoms no chest pain shortness of breath or cough patient denies any nausea no vomiting no abdominal pain complaining of some pain to the left knee area about 4 out of 10 without any radiation patient did have white count of 13.3 today creatinine is 1.3 liver enzymes are normal or cultures are pending Review of Systems Positive point and negatives has been mentioned in the HPI, complete review of systems was performed and all other systems are negative 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-had wound vac Apr 2023, hx gout History of Any Multi-Drug Resistant Organisms: None Reported Past Surgical History: Joint Replacement, Orthopedic Surgery, Tonsillectomy Additional Past Surgical History / Comment(s): VASECTOMY, growth removed from rt abdomen, left knee replacement,ORIF left ankle Past Anesthesia/Blood Transfusion Reactions: No Reported Reaction Additional Past Anesthesia/Blood Transfusion Reaction / Comm: no hx blood transfusion Past Psychological History: No Psychological Hx Reported Smoking Status: Former smoker Past Alcohol Use History: None Reported Additional Past Alcohol Use History / Comment(s): quit smoking 1982,started smoking at age 16,>1ppd Past Drug Use History: None Reported - Past Family History Mother Family Medical History: No Reported History Medications and Allergies Home Medications Medication Instructions Recorded Confirmed Type Atorvastatin [Lipitor] 20 mg PO DAILY 01/27/19 01/11/24 History Cholecalciferol [Vitamin D3 (25 75 mcg PO DAILY 01/27/19 01/11/24 History Mcg = 1000 Iu)] lisinopriL 20 mg PO DAILY 01/27/19 01/11/24 History metFORMIN HCL [Glucophage] 1,000 mg PO BID 01/27/19 01/11/24 History Meloxicam [Mobic] 15 mg PO DAILY 01/05/24 01/11/24 History Aspirin 81 mg PO BID #60 tab 01/08/24 01/11/24 Rx Diclofenac Sodium [Voltaren] 75 mg PO BID #60 tab 01/08/24 01/11/24 Rx Docusate [Colace] 100 mg PO BID #60 capsule 01/08/24 01/11/24 Rx HYDROcodone/APAP 10-325MG [[place] 1 tab PO Q6HR PRN 3 Days #32 tab 01/08/24 01/11/24 Rx 10-325] Cephalexin [Keflex] 500 mg PO Q8HR #90 cap 01/10/24 01/11/24 Rx Ferrous Sulfate [Iron (65 MG 325 mg PO W/LUNCH #30 tab 01/10/24 01/11/24 Rx Elemental)] Omeprazole 20 mg PO DAILY PRN 01/11/24 01/11/24 History Allergies Allergy/AdvReac Type Severity Reaction Status Date / Time bee pollen Allergy Swelling Verified 01/11/24 18:26 silk Allergy had Verified 01/11/24 18:26 infection from silk sutures Physical Exam Vitals: Vital Signs Temp Pulse Resp BP BP BP Pulse Ox 01/09/24 06:53 97.8 F 81 19 101/65 94 L 01/09/24 05:07 95 01/09/24 02:11 98.7 F 89 20 156/76 97 01/08/24 20:45 95 123/78 95 01/08/24 20:30 94 116/76 95 01/08/24 20:15 92 110/72 95 01/08/24 20:00 94 114/74 95 01/08/24 19:45 97 112/74 95 01/08/24 19:30 97 122/78 96 01/08/24 19:15 99 126/80 96 01/08/24 19:00 98 124/81 95 01/08/24 18:45 109 H 17 153/90 95 01/08/24 18:30 98 16 143/68 96 01/08/24 18:15 99 16 137/58 96 01/08/24 17:58 100 14 152/69 94 L 01/08/24 17:43 101 H 14 134/62 99 01/08/24 17:28 107 H 16 129/64 98 01/08/24 13:17 72 14 121/59 99 Intake and Output 01/08/24 01/09/24 01/09/24 22:59 06:59 14:59 Intake Total 600 Output Total 200 Balance 400 Intake: IV 600 Output: Estimated Blood Loss 200 Other: # Voids 1 Weight 123.2 kg GENERAL DESCRIPTION: Elderly male lying in bed, no distress. No tachypnea or accessory muscle of respiration use. HEENT: Shows Pallor , no scleral icterus. Oral mucous membrane is dry. No pharyngeal erythema or thrush NECK: Trachea central, no thyromegaly. LUNGS: Unlabored breathing. Clear to auscultation anteriorly. No wheeze or crackle. HEART: S1, S2, regular rate and rhythm. No loud murmur ABDOMEN: Soft, no tenderness , guarding or rigidity, no organomegaly EXTREMITIES: Left knee is currently dressed in OR dressing SKIN: No rash, no masses palpable. NEUROLOGICAL: The patient is awake, alert, oriented x3, mood and affect normal. Results CBC & Chem 7: 01/10/24 03:49 01/09/24 06:39 Labs: Abnormal Lab Results - Last 24 Hours (Table) 01/08/24 01/08/24 01/08/24 Range/Units 17:43 20:38 21:35 WBC (4.50-10.00) X 10*3/uL RBC (4.40-5.60) X 10*6/uL Hgb (13.0-17.0) g/dL Hct (39.6-50.0) % MCHC (32.0-37.0) g/dL RDW (11.5-14.5) % Immature Gran # (0.00-0.04) X 10*3/uL Neutrophils # (1.80-7.70) X 10*3/uL Monocytes # (0.20-1.00) X 10*3/uL Eosinophils # (0.04-0.35) X 10*3/uL Est GFR (CKD-EPI) (>=60) BUN/Creatinine Ratio (12.00-20.00) Ratio POC Glucose (mg/dL) 155 H 152 H 145 H (70-110) mg/dL Total Bilirubin (0.3-1.2) mg/dL Total Protein (6.2-8.2) g/dL 01/09/24 01/09/24 01/09/24 Range/Units 02:11 06:39 06:39 WBC 13.33 H (4.50-10.00) X 10*3/uL RBC 3.60 L (4.40-5.60) X 10*6/uL Hgb 10.8 L (13.0-17.0) g/dL Hct 34.5 L (39.6-50.0) % MCHC 31.3 L (32.0-37.0) g/dL RDW 15.3 H (11.5-14.5) % Immature Gran # 0.06 H (0.00-0.04) X 10*3/uL Neutrophils # 10.68 H (1.80-7.70) X 10*3/uL Monocytes # 1.29 H (0.20-1.00) X 10*3/uL Eosinophils # 0.01 L (0.04-0.35) X 10*3/uL Est GFR (CKD-EPI) 59 L (>=60) BUN/Creatinine Ratio 20.31 H (12.00-20.00) Ratio POC Glucose (mg/dL) 128 H (70-110) mg/dL Total Bilirubin <0.2 L (0.3-1.2) mg/dL Total Protein 5.9 L (6.2-8.2) g/dL 01/09/24 Range/Units 11:44 WBC (4.50-10.00) X 10*3/uL RBC (4.40-5.60) X 10*6/uL Hgb (13.0-17.0) g/dL Hct (39.6-50.0) % MCHC (32.0-37.0) g/dL RDW (11.5-14.5) % Immature Gran # (0.00-0.04) X 10*3/uL Neutrophils # (1.80-7.70) X 10*3/uL Monocytes # (0.20-1.00) X 10*3/uL Eosinophils # (0.04-0.35) X 10*3/uL Est GFR (CKD-EPI) (>=60) BUN/Creatinine Ratio (12.00-20.00) Ratio POC Glucose (mg/dL) 165 H (70-110) mg/dL Total Bilirubin (0.3-1.2) mg/dL Total Protein (6.2-8.2) g/dL Assessment and Plan (1) Infection of total knee replacement Status: Acute Code(s): T84.59XA - INFECT/INFLM REACTION DUE TO OTH INTERNAL JOINT PROSTH, INIT; Z96.659 - PRESENCE OF UNSPECIFIED ARTIFICIAL KNEE JOINT SNOMED Code(s): 771345062 (2) Leukocytosis Status: Acute Code(s): D72.829 - ELEVATED WHITE BLOOD CELL COUNT, UNSPECIFIED SNOMED Code(s): 934280360 Plan: 1patient with a history of left knee septic arthritis with oxacillin sensitive Streptococcus patient is status post stage II procedure this admission and this patient has completed his IV antibiotic therapy and did have negative culture from the left knee as of 12/09/2023 clinic suspicious for possible infection low consider high risk for infection and may benefit from suppressive antibiotic therapy this was explained to the patient 2-mild elevated white count postsurgery more likely reactive and will be monitored closely 3-we will continue patient on cefazolin 3 g every 8 hours while inpatient and transition to oral Keflex on discharge question concern answered We will follow on clinical condition and cultures to further adjust medication if needed Thank you for this consultation we will follow the patient along with you Dictation was produced using [employer] dictation software. please excuse any grammatical, word or spelling errors. Time with Patient: Greater than 30
[2024-01-10 05:21] LABS: HCT 34.8 % (39.0-53.0); MCH 30.2 pg (25.0-35.0); MCHC 31.7 g/dL (31.0-37.0); MCV 95.5 fL (80.0-100.0); Mean Platelet Volume 9.2; Platelet Count 202 k/uL (150-450); RBC 3.64 m/uL (4.30-5.90); RDW 14.9 % (11.5-15.5); WBC 8.1 k/uL (3.8-10.6)
[2024-01-10 05:45] LABS: Glucose,Whole Blood 118 mg/dL (70-110)
--- NOTE | 2024-01-10 09:03 | P.DS ---
Providers Date of admission: 01/08/24 09:15 Expected date of discharge: 01/10/24 Attending physician: Francisco Javier Penaloza Consults: 01/08/24 16:33 Consult Physician Routine Consulting Provider: Gil Dobbins Consult Reason/Comments: post op medical management Do you want consulting provider notified?: Yes 01/08/24 16:37 Consult Physician Routine Consulting Provider: Jose A Petty Consult Reason/Comments: second stage revision, prior infected TKA Do you want consulting provider notified?: Yes Primary care physician: Stan Cordova - Discharge Diagnosis(es) (1) Infection of total knee replacement Status: Acute (2) Status post revision of total replacement of left knee Status: Acute Hospital Course: This is a 68 year-old male well known to our office with an infected left total knee arthroplasty. After a full course of IV antibiotics and treatment for the infection, the patient elected to proceed with a left revision total knee arthroplasty with antibiotic spacer removal. The patient was seen preoperatively by his primary care physician and cleared for surgery. The patient was admitted to [facility] on 01/08/2024 and underwent a left revision total knee arthroplasty with antibiotic spacer removal by Dr. Penaloza. The procedure was performed without complications or sequelae. The patient was seen and evaluated at bedside today. The patient's pain is well-controlled. The patient has no new complaints today denies any fevers, chills, nausea, vomiting, or shortness of breath. Vital signs are stable. The dressing was more than half saturated with blood. 2 week Prevena applied today. Incision looks fine with no erythema or active drainage. Calf is soft and nontender. The patient has full ankle motion without difficulty. The patient's left lower extremity is neurovascularly intact. The patient is orthopedically stable for discharge home today in good condition. Pertinent Studies: Laboratory Tests 01/10/24 01/10/24 03:49 12:09 WBC 8.1 RBC 3.64 L Hgb 11.0 L Hct 34.8 L POC Glucose (mg/dL) 86 Patient Condition at Discharge: Good Plan - Discharge Summary Discharge Rx Participant: Yes New Discharge Prescriptions: New Docusate [Colace] 100 mg PO BID #60 capsule Diclofenac Sodium [Voltaren] 75 mg PO BID #60 tab Ferrous Sulfate [Iron (65 MG Elemental)] 325 mg PO W/LUNCH #30 tab Cephalexin [Keflex] 500 mg PO Q8HR #90 cap Aspirin 81 mg PO BID #60 tab Omeprazole 40 mg PO DAILY #30 cap HYDROcodone/APAP 10-325MG [[place] 10-325] 1 tab PO Q6HR PRN 3 Days #32 tab PRN Reason: Pain Continue lisinopriL 20 mg PO QAM Atorvastatin [Lipitor] 20 mg PO DAILY metFORMIN HCL [Glucophage] 1,000 mg PO BID No Action Cholecalciferol [Vitamin D3 (25 Mcg = 1000 Iu)] 75 mcg PO DAILY Aspirin [Adult Low Dose Aspirin EC] 81 mg PO BID #1 tab Meloxicam [Mobic] 15 mg PO DAILY Discharge Medication List Atorvastatin [Lipitor] 20 mg PO DAILY 01/27/19 [History] Cholecalciferol [Vitamin D3 (25 Mcg = 1000 Iu)] 75 mcg PO DAILY 01/27/19 [History] lisinopriL 20 mg PO QAM 01/27/19 [History] metFORMIN HCL [Glucophage] 1,000 mg PO BID 01/27/19 [History] Aspirin [Adult Low Dose Aspirin EC] 81 mg PO BID #1 tab 10/08/23 [Rx] Meloxicam [Mobic] 15 mg PO DAILY 01/05/24 [History] Aspirin 81 mg PO BID #60 tab 01/08/24 [Rx] Diclofenac Sodium [Voltaren] 75 mg PO BID #60 tab 01/08/24 [Rx] Docusate [Colace] 100 mg PO BID #60 capsule 01/08/24 [Rx] HYDROcodone/APAP 10-325MG [[place] 10-325] 1 tab PO Q6HR PRN 3 Days #32 tab 01/08/24 [Rx] Omeprazole 40 mg PO DAILY #30 cap 01/08/24 [Rx] Cephalexin [Keflex] 500 mg PO Q8HR #90 cap 01/10/24 [Rx] Ferrous Sulfate [Iron (65 MG Elemental)] 325 mg PO W/LUNCH #30 tab 01/10/24 [Rx] Follow up Appointment(s)/Referral(s): Stan Cordova DO [Primary Care Provider] - 1 Week (office is closed at time of discharge. Please call for follow-up appointment.) Jose A Petty MD [STAFF PHYSICIAN] - 3 Weeks (Office closed at time of discharge. Please call Thursday to make follow up appt. ) Francisco Javier Penaloza MD [Medical Doctor] - 2 Weeks (Office is closed at time of discharge. Please call for follow-up appointment.) Activity/Diet/Wound Care/Special Instructions: 1. Weight-bear as tolerated on your operative extremity unless instructed otherwise. Use a walker or other assistive device to ambulate. 2. Leave Prevena in place for 2 weeks. If any issues with the wound vac, usman berg contact the office. 3. Make sure to take her blood clot prevention medication as prescribed (aspirin, Eliquis, Xarelto, and Plavix are commonly prescribed medications for blood clot prevention) 4. While taking [place] or Percocet for pain make sure you're taking a stool softener (Colace) and drink lots of water. 5. Keep all follow-up appointments as scheduled. You will usually be seen in 1-2 weeks following surgery. 6. Please contact the office with any questions or concerns [phone] 7. Resume Aspirin 81 mg daily after you complete the 4 weeks of twice daily Discharge Disposition: HOME WITH HOME HEALTH SERVICES
[2024-01-10 12:11] LABS: Glucose,Whole Blood 86 mg/dL (70-110)
--- NOTE | 2024-01-10 14:18 | P.PN ---
Subjective Progress Note Date: 01/10/24 (delayed charting seen at 1015) Patient is a 68-year-old male with known diabetes mellitus type 2 on oral medications, hypertension, and dyslipidemia who presented to the hospital for reimplantation of left total knee arthroplasty as part of a staged procedure for prior infection. Patient tolerated the procedure well but did have some postoperative nausea. Patient seen and examined at bedside. Feeling well. Hoping to be discharged today. Up and ambulating well. We discussed that his cultures are still pending. Vital signs reviewed General: Nontoxic, no distress, appears at stated age Cardiovascular: S1S2 reg, no murmur Lungs: CTA bilateral, no rhonchi, no rales, no accessory muscle use Abdominal: Soft, nontender to palpation, no guarding EXT: wound vac over left knee Psych: Alert, oriented, appropriate affect Assessment/Plan: 68-year-old male status post-left total knee arthroplasty, revision with explant of antibiotic spacer. -ID recs reviewed: cefazolin until cultures finalize -Cultures negative to date -Patient did have cultures taken intraoperatively -Patient on cefazolin 3 g IV piggyback every 8 hours Diabetes mellitus type 2 -Continue metformin 1000 mg twice daily -Continue with sliding scale insulin -A1c 6 Acute blood loss anemia, anticipated outcome of surgery -Preoperative hemoglobin 12.3 -Follow CBC -No indication for transfusion - ferrous sulfate 325 mg once daily, added to discharge instructions Hypertension Dyslipidemia -Lisinopril 20 mg daily, Lipitor 20 mg daily -Follow-up blood pressures Imaging: None new Data Review: Labs reviewed from today include CBC which is remarkable for hemoglobin 11. Blood sugars reviewed ranging from 86-111 Thank you for allowing us to participate in the care of this pleasant patient. Do not hesitate to contact us with questions. Someone can be reached from the [facility] hospitalist group all hours of the day at [phone] or via [email or web address]. This dictation was prepared using [employer] voice recognition software. Though every attempt is made to correct errors during dictation some may still exist. Objective - Vital Signs Vital signs: Vital Signs Temp 98.1 F 01/10/24 07:06 Pulse 98 01/10/24 07:06 Resp 17 01/10/24 07:06 BP 136/76 01/10/24 07:06 Pulse Ox 94 L 01/10/24 07:06 FiO2 Intake & Output 01/09/24 01/10/24 01/10/24 18:59 06:59 18:59 Other: # Voids 1 - Labs CBC & Chem 7: 01/10/24 03:49 01/09/24 06:39 Labs: Abnormal Lab Results - Last 24 Hours (Table) 01/09/24 01/09/24 01/10/24 Range/Units 16:19 20:50 03:49 RBC 3.64 L (4.30-5.90) m/uL Hgb 11.0 L (13.0-17.5) gm/dL Hct 34.8 L (39.0-53.0) % POC Glucose (mg/dL) 111 H 117 H (70-110) mg/dL 01/10/24 Range/Units 05:44 RBC (4.30-5.90) m/uL Hgb (13.0-17.5) gm/dL Hct (39.0-53.0) % POC Glucose (mg/dL) 118 H (70-110) mg/dL Microbiology - Last 24 Hours (Table) 01/08/24 15:56 Wound Culture - Preliminary Knee - Left 01/08/24 16:00 Tissue Culture - Preliminary Knee - Left 01/08/24 16:02 Tissue Culture - Preliminary Knee - Left 01/08/24 15:58 Tissue Culture - Preliminary Knee - Left
[2024-01-10 14:58] VITALS: BP 111/66; PULSE 82; RESP 22; TEMP 98.3
--- NOTE | 2024-01-12 11:22 | CDI ---
Documentation Clarification Form Date: 01/12/2024 11:03:24 AM From: Dayana Marsh Phone: Admit Date: 01/08/2024 09:15:00 AM Patient Name: Froilan Morris Visit Number: [id number] Discharge Date: 01/10/2024 03:47:00 PM ATTENTION: The Clinical Documentation Specialists (CDI) and [facility] Coding Staff appreciate your assistance in clarifying documentation. Please respond to the clarification below the line at the bottom and electronically sign. The CDI & [facility] Coding staff will review the response and follow-up if needed. Please note: Queries are made part of the Legal Health Record. If you have any questions, please contact the author of this message via ITS. Dr. Francisco Javier Penaloza Patient has a documented BMI of 42.5. Additional clarification is requested. History/Risk Factors: Clinical Indicators: Patients weight is: 123.2 kg Patients Height is: 58 Calculated BMI is 42.5 Treatments: IncreasedBMI(42.5) and challenging body habitus; significantlyprolongedoperative time Please clarify if patients BMI indicates an additional diagnosis: [ x] Morbid (Extreme) (severe) obesity [ ] No additional diagnosis/not clinically significant [ ] Other, please specify ____ [ ] Unable to determine Reference: NIH Classification for BMI Overweight BMI 2529.9 Obesity (Class 1) BMI 3034.9 Obesity (Class 2) BMI 3539.9 Morbid obesity (Class 3/Extreme/severe) BMI =40 morbid extreme severe obesity. please see text note in chart. WB MTDD
--- NOTE | 2024-01-15 20:30 | P.PN ---
Subjective Progress Note Date: 01/10/24 Principal diagnosis: Reason for follow-up is leukocytosis and left knee septic arthritis Patient is a 68-year-old male with a past medical history significant for hypertension hyperlipidemia and diabetes mellitus osteoarthritis, patient did have a left knee septic arthritis for the patient did have a stage I procedure back in September 2023 cultures were positive for oxacillin sensitive Staphylococcus species not admitted to hospital for stage II procedure which was completed. On today's evaluation that is 01/10/2024 patient denies having any fever or any chills, the patient is breathing comfortably on room air patient denies having any chest pain shortness of breath or cough no nausea vomiting no abdominal pain pain to the left knee is currently controlled. Patient white count normalized to 8.1 culture has been negative so far Objective - Vital Signs Vital signs: Vital Signs Temp 98.1 F 01/10/24 07:06 Pulse 98 01/10/24 07:06 Resp 17 01/10/24 07:06 BP 136/76 01/10/24 07:06 Pulse Ox 94 L 01/10/24 07:06 FiO2 Intake & Output 01/09/24 01/10/24 01/10/24 18:59 06:59 18:59 Other: # Voids 1 - Exam GENERAL DESCRIPTION: An elderly male lying in bed in no distress RESPIRATORY SYSTEM: Unlabored breathing , decreased breath sounds at bases HEART: S1 S2 regular rate and rhythm , ABDOMEN: Soft , no tenderness EXTREMITIES: No edema feet left is currently dressed and or dressing - Labs CBC & Chem 7: 01/10/24 03:49 01/09/24 06:39 Labs: Abnormal Lab Results - Last 24 Hours (Table) 01/09/24 01/09/24 01/10/24 Range/Units 16:19 20:50 03:49 RBC 3.64 L (4.30-5.90) m/uL Hgb 11.0 L (13.0-17.5) gm/dL Hct 34.8 L (39.0-53.0) % POC Glucose (mg/dL) 111 H 117 H (70-110) mg/dL 01/10/24 Range/Units 05:44 RBC (4.30-5.90) m/uL Hgb (13.0-17.5) gm/dL Hct (39.0-53.0) % POC Glucose (mg/dL) 118 H (70-110) mg/dL Microbiology - Last 24 Hours (Table) 01/08/24 15:56 Wound Culture - Preliminary Knee - Left 01/08/24 16:00 Tissue Culture - Preliminary Knee - Left 01/08/24 16:02 Tissue Culture - Preliminary Knee - Left 01/08/24 15:58 Tissue Culture - Preliminary Knee - Left Assessment and Plan (1) Leukocytosis Status: Acute Code(s): D72.829 - ELEVATED WHITE BLOOD CELL COUNT, UNSPECIFIED SNOMED Code(s): 446469531 (2) Infection of total knee replacement Status: Acute Code(s): T84.59XA - INFECT/INFLM REACTION DUE TO OTH INTERNAL JOINT PROSTH, INIT; Z96.659 - PRESENCE OF UNSPECIFIED ARTIFICIAL KNEE JOINT SNOMED Code(s): 212808705 Plan: 1patient with a history of left knee septic arthritis with oxacillin sensitive Streptococcus patient is status post stage II procedure this admission and this patient has completed his IV antibiotic therapy and did have negative culture from the left knee as of 12/09/2023 clinic suspicious for possible infection low consider high risk for infection and may benefit from suppressive antibiotic therapy this was explained to the patient 2-mild elevated white count postsurgery more likely reactive and the patient white count has normalized cultures have been negative so far 3-patient will be advised suppressive oral Keflex prescription has been sent to the pharmacy and close outpatient follow-up Dictation was produced using [employer] dictation software. please excuse any grammatical, word or spelling errors. Time with Patient: Less than 30
== END 2024-01-10 15:47 | disposition home health service (06) | DRG 467 ==
LOC: 2ORMAIN 09:15 → 4SSUR 17:42
PROVIDERS: ADMIT Orthopaedic Surgery; ATTEND Orthopaedic Surgery
PROC: 0SPD08Z Removal of Spacer from Left Knee Joint, Open Approach (ICD-10-PCS; 2024-01-08)
PROC: 0JX Subcutaneous Tissue and Fascia, Transfer (ICD-10-PCS; 2024-01-08)
PROC: 0KBT0ZZ Excision of Left Lower Leg Muscle, Open Approach (ICD-10-PCS; 2024-01-08)
PROC: 3E0T3BZ Introduction of Anesthetic Agent into Peripheral Nerves and Plexi, Percutaneous Approach (ICD-10-PCS; 2024-01-08)
PROC: 3E0T3BZ Introduction of Anesthetic Agent into Peripheral Nerves and Plexi, Percutaneous Approach (ICD-10-PCS; 2024-01-08)
PROC: 0SRD0J9 Replacement of Left Knee Joint with Synthetic Substitute, Cemented, Open Approach (ICD-10-PCS; principal; 2024-01-08 11:15)
DX: T84.54XA Infection and inflammatory reaction due to internal left knee prosthesis, initial encounter (principal); D62 Acute posthemorrhagic anemia; Z68.41 Body mass index [BMI] 40.0-44.9, adult; T84.82XA Fibrosis due to internal orthopedic prosthetic devices, implants and grafts, initial encounter; E66.01 Morbid (severe) obesity due to excess calories; E11.9 Type 2 diabetes mellitus without complications; I10 Essential (primary) hypertension; E78.5 Hyperlipidemia, unspecified; M24.562 Contracture, left knee; Y79.2 Prosthetic and other implants, materials and accessory orthopedic devices associated with adverse incidents; Z79.84 Long term (current) use of oral hypoglycemic drugs; Z79.899 Other long term (current) drug therapy; Z87.891 Personal history of nicotine dependence; Z79.82 Long term (current) use of aspirin; Z79.1 Long term (current) use of non-steroidal anti-inflammatories (NSAID); Z91.030 Bee allergy status; Z91.048 Other nonmedicinal substance allergy status; Z86.19 Personal history of other infectious and parasitic diseases; Z87.39 Personal history of other diseases of the musculoskeletal system and connective tissue
CPT/HCPCS: 64447; 64999; 80053; 83036; 85025; 85027; 87070; 87075; 87102; 87205

== ENCOUNTER 2024-01-11 14:15 | Inpatient (IN) | payer MEDICARE ==
--- NOTE | 2024-01-11 17:33 | ED ---
General Adult HPI - General Chief complaint: Recheck/Abnormal Lab/Rx Time Seen by Provider: 01/11/24 14:33 Source: patient, family, RN notes reviewed Mode of arrival: wheelchair Limitations: no limitations - History of Present Illness Initial comments: This is a 68-year-old male presents emergency department chief complaint of left knee pain. Patient was admitted to the hospital and had a reconstructive knee surgery completed on 01/08/24. Patient was discharged yesterday at 01/10/2024. Patient states that when he returned home he had a large amount of blood drainage from his wound VAC where he called the court specialist office with instruction report back to the emergency department. He is endorsing mild pain of the right knee. He denies fevers, nausea, vomiting, and generalized weakness. - Related Data Home Medications Medication Instructions Recorded Confirmed Atorvastatin [Lipitor] 20 mg PO DAILY 01/27/19 01/11/24 Cholecalciferol [Vitamin D3 (25 75 mcg PO DAILY 01/27/19 01/11/24 Mcg = 1000 Iu)] lisinopriL 20 mg PO DAILY 01/27/19 01/11/24 metFORMIN HCL [Glucophage] 1,000 mg PO BID 01/27/19 01/11/24 Meloxicam [Mobic] 15 mg PO DAILY 01/05/24 01/11/24 Omeprazole 20 mg PO DAILY PRN 01/11/24 01/11/24 Previous Rx's Medication Instructions Recorded Aspirin 81 mg PO BID #60 tab 01/08/24 Diclofenac Sodium [Voltaren] 75 mg PO BID #60 tab 01/08/24 Docusate [Colace] 100 mg PO BID #60 capsule 01/08/24 HYDROcodone/APAP 10-325MG [[place] 1 tab PO Q6HR PRN 3 Days #32 tab 01/08/24 10-325] Cephalexin [Keflex] 500 mg PO Q8HR #90 cap 01/10/24 Ferrous Sulfate [Iron (65 MG 325 mg PO W/LUNCH #30 tab 01/10/24 Elemental)] Allergies Allergy/AdvReac Type Severity Reaction Status Date / Time bee pollen Allergy Swelling Verified 01/11/24 18:26 silk Allergy had Verified 01/11/24 18:26 infection from silk sutures Review of Systems ROS Statement: Those systems with pertinent positive or pertinent negative responses have been documented in the HPI. ROS Other: All systems not noted in ROS Statement are negative. 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-had wound vac Apr 2023, hx gout History of Any Multi-Drug Resistant Organisms: None Reported Past Surgical History: Joint Replacement, Orthopedic Surgery, Tonsillectomy Additional Past Surgical History / Comment(s): VASECTOMY, growth removed from rt abdomen, left knee replacement,ORIF left ankle Past Anesthesia/Blood Transfusion Reactions: No Reported Reaction Additional Past Anesthesia/Blood Transfusion Reaction / Comment(s): no hx blood transfusion Past Psychological History: No Psychological Hx Reported Smoking Status: Former smoker Past Alcohol Use History: None Reported Past Drug Use History: None Reported - Past Family History Mother Family Medical History: No Reported History General Exam Limitations: no limitations General appearance: alert, in no apparent distress Head exam: Present: atraumatic, normocephalic, normal inspection Eye exam: Present: normal appearance, PERRL, EOMI. Absent: scleral icterus, conjunctival injection, periorbital swelling ENT exam: Present: normal exam, mucous membranes moist Neck exam: Present: normal inspection. Absent: tenderness, meningismus, lymphadenopathy Respiratory exam: Present: normal lung sounds bilaterally. Absent: respiratory distress, wheezes, rales, rhonchi, stridor Cardiovascular Exam: Present: regular rate, normal rhythm, normal heart sounds. Absent: systolic murmur, diastolic murmur, rubs, gallop, clicks GI/Abdominal exam: Present: soft, normal bowel sounds. Absent: distended, tenderness, guarding, rebound, rigid Left Knee exam: Present: tenderness, swelling, laceration (post surgical incision site, wound vac inplace). Absent: normal inspection, full ROM (unable to assess), abrasion Lower Leg exam: Present: normal inspection Back exam: Present: normal inspection Neurological exam: Present: alert, oriented X3, CN II-XII intact Psychiatric exam: Present: normal affect, normal mood Skin exam: Present: warm, dry, intact, normal color. Absent: rash Course Vital Signs 01/11/24 01/11/24 01/11/24 14:17 18:39 20:42 Temperature 97.6 F 98.3 F Pulse Rate 108 H 94 104 H Respiratory 17 20 19 Rate Blood Pressure 111/67 110/59 98/67 O2 Sat by Pulse 96 95 95 Oximetry Medical Decision Making - Medical Decision Making Was pt. sent in by a medical professional or institution (NIMA Mahoney, TECHNICAL ASSISTANCE CONSULTANT, urgent care, hospital, or long term...) When possible be specific @ -Was sent in by his court specialist Dr. Penaloza with concern for postoperative complication of the total right knee replacement. Did you speak to anyone other than the patient for history (EMS, parent, family, police, friend...)? What history was obtained from this source @ -E patient's was at bedside stated that patient has had 3 reconstructive surgeries of the right knee after his first replacement due to history of infection. Did you review nursing and triage notes (agree or disagree)? Why? @ -I reviewed and agree with nursing and triage notes Were old charts reviewed (outside hosp., previous admission, EMS record, old EKG, old radiological studies, urgent care reports/EKG's, long term records)? Report findings @ -Reviewed patient's note from 01/08/[address] Penaloza where patient underwent a total knee replacement surgery, patient tolerated procedure well, and is stable for discharge on 01/10/2024. Differential Diagnosis (chest pain, altered mental status, abdominal pain women, abdominal pain men, vaginal bleeding, weakness, fever, dyspnea, syncope, headache, dizziness, GI bleed, back pain, seizure, CVA, palpatations, mental health, musculoskeletal)? @ -Postoperative complication, cellulitis, placed infection, this list is not all inclusive. EKG interpreted by me (3pts min.). @ -None X-rays interpreted by me (1pt min.). @ -None done CT interpreted by me (1pt min.). @ -None done U/S interpreted by me (1pt. min.). @ -None done What testing was considered but not performed or refused? (CT, X-rays, U/S, labs)? Why? @ -None What meds were considered but not given or refused? Why? @ -None Did you discuss the management of the patient with other professionals (professionals i.e. NIMA Mahoney, TECHNICAL ASSISTANCE CONSULTANT, lab, RT, psych nurse, social services coordinator, rapid extractor operator, teacher, correctional officer chief, community case manager)? Give summary @ -Spoke with court specialist Dr. Penaloza who accepts patient for admission And discussed that he will change the patient's wound VAC, questing that patient be admitted with general medicine on consult. At this time I spoke with general medicine team, sound physician group Dr. rivers who accepts the patient. Was smoking cessation discussed for >3mins.? @ -No Was critical care preformed (if so, how long)? @ -No Were there social determinants of health that impacted care today? How? (Homelessness, low income, unemployed, alcoholism, drug addiction, transportation, low edu. Level, literacy, decrease access to med. care, assisted, rehab)? @ -No Was there de-escalation of care discussed even if they declined (Discuss DNR or withdrawal of care, Hospice)? DNR status @ -No What co-morbidities impacted this encounter? (DM, HTN, Smoking, COPD, CAD, Cance r, CVA, ARF, Chemo, Hep., AIDS, mental health diagnosis, sleep apnea, morbid obesity)? @ -Diabetes Was patient admitted / discharged? Hospital course, mention meds given and route, prescriptions, significant lab abnormalities, going to OR and other pertinent info. @ -Noted. 5-year-old male with blood drainage from his wound VAC of the right knee. On examination the postsurgical incision is clean and wound VAC is in place. Patient was evaluated by court specialist who recommends admission. Wound VAC changed in room and patient was started on IV antibiotics. Undiagnosed new problem with uncertain prognosis? @ -No Drug Therapy requiring intensive monitoring for toxicity (Heparin, Nitro, Insulin, Cardizem)? @ -No Were any procedures done? @ -No Diagnosis/symptom? @ -post operative total knee replacement complication Acute, or Chronic, or Acute on Chronic? @ -Acute Uncomplicated (without systemic symptoms) or Complicated (systemic symptoms)? @ -complicated Side effects of treatment? @ -No Exacerbation, Progression, or Severe Exacerbation? @ -No Poses a threat to life or bodily function? How? (Chest pain, [place], [place], pneumonia, PE, COPD, DKA, ARF, appy, cholecystitis, CVA, Diverticulitis, Homicidal, Suicidal, threat to staff... and all critical care pts) @ -Possibly, infection of joint replacement can lead to systemic infection and possible sepsis and multiorgan system dysfunction. - Lab Data Result diagrams: 01/11/24 18:43 01/11/24 18:43 Disposition Clinical Impression: Post-operative complication Disposition: ADMITTED IP TO THIS [facility] Condition: Good Is patient prescribed a controlled substance at d/c from ED?: No Decision to Admit Reason: Admit from EC Decision Date: 01/11/24 Decision Time: 17:53
[2024-01-11] MEDS ORDERED: ACETAMINOPHEN TAB 325 MG TAB PO PRN (17:39)
[2024-01-11] MEDS ORDERED: IBUPROFEN 400 MG TAB PO PRN (17:39)
[2024-01-11] MEDS ORDERED: NALOXONE 0.4 MG/ML 1 ML VIAL IV PRN (17:39)
--- NOTE | 2024-01-11 18:01 | P.HPOR ---
History of Present Illness H&P Date: 01/11/24 patient is a very pleasant 68-year-old male with a medical history significant for type II diabetes and morbid obesity with a BMI of 42 recently underwent a revision knee replacement with removal of an antibiotic spacer and placement of revision implants. He was seen yesterday morning and found to have a small amount of bleeding and his surgical dressing. This was changed at bedside and a wound VAC was applied. The patient was discharged home. This morning he had bleeding into and around the incisional wound VAC. He contacted my office and I recommended that he come to the emergency department for evaluation. In the emergency department is doing relatively well with minimal complaint. 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-had wound vac Apr 2023, hx gout History of Any Multi-Drug Resistant Organisms: None Reported Past Surgical History: Joint Replacement, Orthopedic Surgery, Tonsillectomy Additional Past Surgical History / Comment(s): VASECTOMY, growth removed from rt abdomen, left knee replacement,ORIF left ankle Past Anesthesia/Blood Transfusion Reactions: No Reported Reaction Additional Past Anesthesia/Blood Transfusion Reaction / Comment(s): no hx blood transfusion Past Psychological History: No Psychological Hx Reported Smoking Status: Former smoker Past Alcohol Use History: None Reported Past Drug Use History: None Reported - Past Family History Mother Family Medical History: No Reported History Medications and Allergies Home Medications Medication Instructions Recorded Confirmed Type Atorvastatin [Lipitor] 20 mg PO DAILY 01/27/19 01/08/24 History Cholecalciferol [Vitamin D3 (25 75 mcg PO DAILY 01/27/19 01/08/24 History Mcg = 1000 Iu)] lisinopriL 20 mg PO QAM 01/27/19 01/08/24 History metFORMIN HCL [Glucophage] 1,000 mg PO BID 01/27/19 01/08/24 History Aspirin [Adult Low Dose Aspirin EC] 81 mg PO BID #1 tab 10/08/23 01/08/24 Rx Meloxicam [Mobic] 15 mg PO DAILY 01/05/24 01/08/24 History Aspirin 81 mg PO BID #60 tab 01/08/24 Rx Diclofenac Sodium [Voltaren] 75 mg PO BID #60 tab 01/08/24 Rx Docusate [Colace] 100 mg PO BID #60 capsule 01/08/24 Rx HYDROcodone/APAP 10-325MG [[place] 1 tab PO Q6HR PRN 3 Days #32 tab 01/08/24 Rx 10-325] Omeprazole 40 mg PO DAILY #30 cap 01/08/24 Rx Cephalexin [Keflex] 500 mg PO Q8HR #90 cap 01/10/24 Rx Ferrous Sulfate [Iron (65 MG 325 mg PO W/LUNCH #30 tab 01/10/24 Rx Elemental)] Allergies Allergy/AdvReac Type Severity Reaction Status Date / Time bee pollen Allergy Swelling Verified 01/08/24 09:24 silk Allergy had Verified 01/08/24 09:24 infection from silk sutures Physical Examination the patient is resting comfortably in his bed. His head is normocephalic and atraumatic. A focused exam of the left lower extremity was conducted. The incisional wound VAC has no seal and there is bleeding around the margins. This was taken down. Incision is well approximated and is not actively bleeding. The patient has a moderate to large effusion. There is no erythema or warmth. He is able to actively plantarflex and dorsiflex his ankle and his toes. Assessment and Plan Assessment: status post left removal of antibiotic spacer and revision knee replacement with postoperative drainage Plan: the patient had a hospital [facility] wound VAC applied in the emergency department. Following this a knee immobilizer was placed. I would like to have the patient admitted for observation for 48 hours to monitor the drainage. We will change the wound VAC on Thursday. If there is no active drainage at the vena wound VAC will be replaced and he will be discharged home. If his incision is still bleeding and draining we will take him to the operating room for I&D and revision closure.
[2024-01-11 18:48] LABS: Basophils % (A) 0 %; Eosinophils # (A) 0.3 k/uL (0-0.7); Eosinophils % (A) 4 %; HCT 35.4 % (39.0-53.0); HGB 11.8 gm/dL (13.0-17.5); Lymphocytes # (A) 1.8 k/uL (1.0-4.8); Lymphocytes % (A) 19 %; MCH 31.4 pg (25.0-35.0); MCHC 33.4 g/dL (31.0-37.0); MCV 93.9 fL (80.0-100.0); Monocytes # (A) 0.8 k/uL (0-1.0); Monocytes % (A) 9 %; Neutrophils # (A) 6.2 k/uL (1.3-7.7); Neutrophils % (A) 65 %; Platelet Count 222 k/uL (150-450); RBC 3.77 m/uL (4.30-5.90); RDW 15.1 % (11.5-15.5); WBC 9.4 k/uL (3.8-10.6)
[2024-01-11 18:57] LABS: ALT 16 U/L (4-49); AST 29 U/L (17-59); African American GFR (CKD) 78 (>60 ml/min/1.73 sqM); Albumin 3.9 g/dL (3.5-5.0); Alkaline Phosphatase 84 U/L (38-126); Anion Gap 6 mmol/L; Blood Urea Nitrogen 21 mg/dL (9-20); Calcium 8.9 mg/dL (8.4-10.2); Carbon Dioxide 27 mmol/L (22-30); Chloride 103 mmol/L (98-107); Glucose 102 mg/dL (74-99); Non-African American GFR(CKD) 67 (>60 ml/min/1.73 sqM); Potassium 4.3 mmol/L (3.5-5.1); Sodium 136 mmol/L (137-145); Total Bilirubin 0.7 mg/dL (0.2-1.3); Total Protein 6.7 g/dL (6.3-8.2)
--- NOTE | 2024-01-12 00:15 | P.CONS ---
History of Present Illness - Reason for Consult Consult date: 01/11/24 - History of Present Illness Patient is a 68-year-old male with a PMH of type II DM, hypertension, hyperlipidemia, left total knee arthroplasty April 2023, status post infection with recent revision with removal of antibiotic spacer now presents to the emergency room for bleeding into and around his wound VAC. Patient had contacted his surgeons who advised him to go to the emergency room. The patient notes minimal pain at the time of interview, rated at a 2 out of 10 of the left knee. He denied any additional complaints. Denied experiencing chest discomfort, shortness of breath, fever, chills, cough, nausea, vomiting, abdominal pain, diarrhea. Laboratory evaluation was reviewed with WBC count 9.4, hemoglobin 11.8, sodium 136, BUN 21, creatinine 1.11, glucose 102. ED documentation reviewed and case discussed with ED provider. Review of systems: Pertinent positives and negatives as discussed in HPI, a complete review of systems was performed and all other systems are negative. Physical examination: Vital signs reviewed General: non toxic, no distress, appears at stated age, morbidly obese Derm: no unusual rashes/lesions, warm Head: atraumatic, normocephalic, symmetric Eyes: EOMI, no lid lag, anicteric sclera, pupils equal round reactive to light ENT: Nose and ears atraumatic Neck: No cervical lymphadenopathy, trachea midline, supple Mouth: no lip lesion, mucus membranes moist Cardiovascular: S1S2 reg, no murmur, positive dorsalis pedis pulse bilateral, no edema Lungs: CTA bilateral, no rhonchi, no rales, no accessory muscle use Abdominal: soft, nontender to palpation, no guarding Ext: muscle strength 5 out of 5 in all 4 extremities grossly except left lower extremity postoperatively, no gross muscle atrophy, no contractures, left knee wound VAC in place Neuro: CN II-XI grossly intact, no gross focal neuro deficits Psych: Alert, oriented, appropriate affect Assessment: Chronic conditions: Type II DM, hypertension, hyperlipidemia Status post left total knee arthroplasty with subsequent revision and currently on wound VAC Imaging: None performed Data Review: Laboratory evaluation was reviewed with WBC count 9.4, hemoglobin 11.8, sodium 136, BUN 21, creatinine 1.11, glucose 102. Plan: Insulin sliding scale and blood glucose monitoring Patient currently on 1 g every 8 hour Resume patient's home medications including lisinopril, Lipitor, and aspirin Defer management of pain control and DVT prophylaxis to the primary surgery service 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-had wound vac Apr 2023, hx gout History of Any Multi-Drug Resistant Organisms: None Reported Past Surgical History: Joint Replacement, Orthopedic Surgery, Tonsillectomy Additional Past Surgical History / Comment(s): VASECTOMY, growth removed from rt abdomen, left knee replacement,ORIF left ankle Past Anesthesia/Blood Transfusion Reactions: No Reported Reaction Additional Past Anesthesia/Blood Transfusion Reaction / Comm: no hx blood tra nsfusion Past Psychological History: No Psychological Hx Reported Smoking Status: Former smoker Past Alcohol Use History: None Reported Additional Past Alcohol Use History / Comment(s): quit smoking 1982,started smoking at age 16,>1ppd Past Drug Use History: None Reported - Past Family History Mother Family Medical History: Hyperlipidemia Medications and Allergies Home Medications Medication Instructions Recorded Confirmed Type Atorvastatin [Lipitor] 20 mg PO DAILY 01/27/19 01/11/24 History Cholecalciferol [Vitamin D3 (25 75 mcg PO DAILY 01/27/19 01/11/24 History Mcg = 1000 Iu)] lisinopriL 20 mg PO DAILY 01/27/19 01/11/24 History metFORMIN HCL [Glucophage] 1,000 mg PO BID 01/27/19 01/11/24 History Meloxicam [Mobic] 15 mg PO DAILY 01/05/24 01/11/24 History Aspirin 81 mg PO BID #60 tab 01/08/24 01/11/24 Rx Diclofenac Sodium [Voltaren] 75 mg PO BID #60 tab 01/08/24 01/11/24 Rx Docusate [Colace] 100 mg PO BID #60 capsule 01/08/24 01/11/24 Rx HYDROcodone/APAP 10-325MG [[place] 1 tab PO Q6HR PRN 3 Days #32 tab 01/08/24 01/11/24 Rx 10-325] Cephalexin [Keflex] 500 mg PO Q8HR #90 cap 01/10/24 01/11/24 Rx Ferrous Sulfate [Iron (65 MG 325 mg PO W/LUNCH #30 tab 01/10/24 01/11/24 Rx Elemental)] Omeprazole 20 mg PO DAILY PRN 01/11/24 01/11/24 History Allergies Allergy/AdvReac Type Severity Reaction Status Date / Time bee pollen Allergy Swelling Verified 01/11/24 18:26 silk Allergy had Verified 01/11/24 18:26 infection from silk sutures Physical Exam Vitals: Vital Signs Temp Pulse Resp BP Pulse Ox 01/11/24 20:42 98.3 F 104 H 19 98/67 95 01/11/24 18:39 94 20 110/59 95 01/11/24 14:17 97.6 F 108 H 17 111/67 96 Intake and Output 01/11/24 01/11/24 01/12/24 14:59 22:59 06:59 Other: Voiding Method Urinal Weight 122.47 kg 122.47 kg Results CBC & Chem 7: 01/11/24 18:43 01/11/24 18:43 Labs: Abnormal Lab Results - Last 24 Hours (Table) 01/11/24 01/11/24 Range/Units 18:43 18:43 RBC 3.77 L (4.30-5.90) m/uL Hgb 11.8 L (13.0-17.5) gm/dL Hct 35.4 L (39.0-53.0) % Sodium 136 L (137-145) mmol/L BUN 21 H (9-20) mg/dL Glucose 102 H (74-99) mg/dL
[2024-01-12 05:52] LABS: Glucose,Whole Blood 112 mg/dL (70-110)
[2024-01-12] MEDS: INSULIN ASPART (NovoLOG) 100 UNIT/ML VIAL SQ SCH (05:54)
[2024-01-12] MEDS: lisinopriL 20 MG TAB PO SCH (09:08)
[2024-01-12] MEDS: ASPIRIN 81 MG PO SCH (09:08)
[2024-01-12] MEDS: ATORVASTATIN 20 MG TAB PO SCH (09:09)
[2024-01-12 11:28] LABS: Glucose,Whole Blood 220 mg/dL (70-110)
[2024-01-12] MEDS: FERROUS SULFATE 325 MG TAB PO SCH (12:11)
--- NOTE | 2024-01-12 12:55 | P.PN ---
Subjective Progress Note Date: 01/12/24 Feels better today, no chest pain abdominal pain no nausea no vomiting no dizziness no shortness of breath Family at bedside. Objective - Vital Signs Vital signs: Vital Signs Temp 97.7 F 01/12/24 07:08 Pulse 95 01/12/24 07:08 Resp 19 01/12/24 08:00 BP 108/72 01/12/24 07:08 Pulse Ox 94 L 01/12/24 07:08 FiO2 Intake & Output 01/11/24 01/12/24 01/12/24 18:59 06:59 18:59 Output Total 500 Balance -500 Weight 122.47 kg 122.47 kg Output: Urine 500 Other: Voiding Method Urinal - Exam General: non toxic, no distress, appears at stated age, morbidly obese Derm: no unusual rashes/lesions, warm Head: atraumatic, normocephalic, symmetric Eyes: EOMI, no lid lag, anicteric sclera, pupils equal round reactive to light ENT: Nose and ears atraumatic Neck: No cervical lymphadenopathy, trachea midline, supple Mouth: no lip lesion, mucus membranes moist Cardiovascular: S1S2 reg, no murmur, positive dorsalis pedis pulse bilateral, no edema Lungs: CTA bilateral, no rhonchi, no rales, no accessory muscle use Abdominal: soft, nontender to palpation, no guarding Ext: muscle strength 5 out of 5 in all 4 extremities grossly except left lower extremity postoperatively, no gross muscle atrophy, no contractures, left knee wound VAC in place Neuro: CN II-XI grossly intact, no gross focal neuro deficits Psych: Alert, oriented, appropriate affect - Labs CBC & Chem 7: 01/11/24 18:43 01/11/24 18:43 Labs: Abnormal Lab Results - Last 24 Hours (Table) 01/11/24 01/11/24 01/12/24 Range/Units 18:43 18:43 05:44 RBC 3.77 L (4.30-5.90) m/uL Hgb 11.8 L (13.0-17.5) gm/dL Hct 35.4 L (39.0-53.0) % Sodium 136 L (137-145) mmol/L BUN 21 H (9-20) mg/dL Glucose 102 H (74-99) mg/dL POC Glucose (mg/dL) 112 H (70-110) mg/dL 01/12/24 Range/Units 11:26 RBC (4.30-5.90) m/uL Hgb (13.0-17.5) gm/dL Hct (39.0-53.0) % Sodium (137-145) mmol/L BUN (9-20) mg/dL Glucose (74-99) mg/dL POC Glucose (mg/dL) 220 H (70-110) mg/dL Assessment and Plan Plan: Chronic conditions: Type II DM, hypertension, hyperlipidemia Status post left total knee arthroplasty with subsequent revision and currently on wound VAC Plan: Insulin sliding scale and blood glucose monitoring Resume patient's home medications including lisinopril, Lipitor, and aspirin Disposition: Home soon
[2024-01-12 14:41] VITALS: RESP 18
[2024-01-12 16:32] LABS: Glucose,Whole Blood 124 mg/dL (70-110)
[2024-01-12 20:06] LABS: Glucose,Whole Blood 140 mg/dL (70-110)
--- NOTE | 2024-01-12 20:38 | P.PN ---
Subjective No complaints. Objective - Vital Signs Vital signs: Vital Signs Temp 98 F 01/12/24 20:00 Pulse 103 H 01/12/24 20:00 Resp 18 01/12/24 20:00 BP 122/75 01/12/24 20:00 Pulse Ox 93 L 01/12/24 20:00 FiO2 Intake & Output 01/12/24 01/12/24 01/13/24 06:59 18:59 06:59 Output Total 500 Balance -500 Weight 122.47 kg Output: Urine 500 Other: Voiding Method Urinal # Voids 3 - Exam Wound vac with good seal. No active drainage or complications. - Labs CBC & Chem 7: 01/11/24 18:43 01/11/24 18:43 Labs: Abnormal Lab Results - Last 24 Hours (Table) 01/12/24 01/12/24 01/12/24 Range/Units 05:44 11:26 16:30 POC Glucose (mg/dL) 112 H 220 H 124 H (70-110) mg/dL 01/12/24 Range/Units 20:04 POC Glucose (mg/dL) 140 H (70-110) mg/dL Assessment and Plan Plan: We will plan on taking down the hospital wound VAC tomorrow. If there is no drainage, a Prevena will be applied and will be discharged home. If there is drainage, we will take him to the OR for an I&D. NPO after MN tonight.
[2024-01-13 05:46] LABS: Glucose,Whole Blood 129 mg/dL (70-110)
--- NOTE | 2024-01-13 10:05 | P.PN ---
Subjective Progress Note Date: 01/13/24 Feels better today, no chest pain abdominal pain no nausea no vomiting no dizziness no shortness of breath Remains afebrile. Ambulating Objective - Vital Signs Vital signs: Vital Signs Temp 98.4 F 01/13/24 07:08 Pulse 97 01/13/24 07:08 Resp 18 01/13/24 07:08 BP 122/83 01/13/24 07:08 Pulse Ox 97 01/13/24 07:08 FiO2 Intake & Output 01/12/24 01/13/24 01/13/24 18:59 06:59 18:59 Output Total 850 Balance -850 Output: Urine 850 Other: # Voids 3 - Exam General: non toxic, no distress, appears at stated age, morbidly obese Derm: no unusual rashes/lesions, warm Head: atraumatic, normocephalic, symmetric Eyes: EOMI, no lid lag, anicteric sclera, pupils equal round reactive to light ENT: Nose and ears atraumatic Neck: No cervical lymphadenopathy, trachea midline, supple Mouth: no lip lesion, mucus membranes moist Cardiovascular: S1S2 reg, no murmur Lungs: CTA bilateral, no rhonchi, no rales, no accessory muscle use Abdominal: soft, nontender to palpation, no guarding Ext: muscle strength 5 out of 5 in all 4 extremities grossly except left lower extremity postoperatively, no gross muscle atrophy, no contractures, left knee wound VAC in place Neuro: CN II-XI grossly intact, no gross focal neuro deficits Psych: Alert, oriented, appropriate affect - Labs CBC & Chem 7: 01/11/24 18:43 01/11/24 18:43 Labs: Abnormal Lab Results - Last 24 Hours (Table) 01/12/24 01/12/24 01/12/24 Range/Units 11:26 16:30 20:04 POC Glucose (mg/dL) 220 H 124 H 140 H (70-110) mg/dL 01/13/24 Range/Units 05:43 POC Glucose (mg/dL) 129 H (70-110) mg/dL Assessment and Plan Plan: Chronic conditions: Type II DM, hypertension, hyperlipidemia 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 Plan for I&D. Plan: Insulin sliding scale and blood glucose monitoring Resume patient's home medications including lisinopril, Lipitor, and aspirin Disposition: Home soon
[2024-01-13 11:20] LABS: Glucose,Whole Blood 110 mg/dL (70-110)
--- NOTE | 2024-01-13 13:46 | P.DS ---
Providers Date of admission: 01/11/24 17:52 Attending physician: Francisco Javier Penaloza Consults: 01/11/24 17:39 Consult Physician Stat Consulting Provider: Gil Dobbins Consult Reason/Comments: post op complication Do you want consulting provider notified?: Already Contacted [facility] Course: the patient is a very pleasant 5-year-old male who underwent a revision knee replacement this past Thursday. He was discharged home on Thursday. He had bleeding around his incisional wound VAC and was admitted through the ER. He had a hospital wound VAC applied on Thursday. The wound VAC was changed today and the incision was intact with no drainage or bleeding. A new incisional wound VAC was applied. He was doing well and was discharged home. Patient Condition at Discharge: Good Plan - Discharge Summary Discharge Rx Participant: No New Discharge Prescriptions: No Action lisinopriL 20 mg PO DAILY Atorvastatin [Lipitor] 20 mg PO DAILY metFORMIN HCL [Glucophage] 1,000 mg PO BID Cholecalciferol [Vitamin D3 (25 Mcg = 1000 Iu)] 75 mcg PO DAILY Docusate [Colace] 100 mg PO BID #60 capsule Diclofenac Sodium [Voltaren] 75 mg PO BID #60 tab Ferrous Sulfate [Iron (65 MG Elemental)] 325 mg PO W/LUNCH #30 tab Cephalexin [Keflex] 500 mg PO Q8HR #90 cap Meloxicam [Mobic] 15 mg PO DAILY Aspirin 81 mg PO BID #60 tab HYDROcodone/APAP 10-325MG [[place] 10-325] 1 tab PO Q6HR PRN 3 Days #32 tab PRN Reason: Pain Omeprazole 20 mg PO DAILY PRN PRN Reason: Heartburn Discharge Medication List Atorvastatin [Lipitor] 20 mg PO DAILY 01/27/19 [History] Cholecalciferol [Vitamin D3 (25 Mcg = 1000 Iu)] 75 mcg PO DAILY 01/27/19 [History] lisinopriL 20 mg PO DAILY 01/27/19 [History] metFORMIN HCL [Glucophage] 1,000 mg PO BID 01/27/19 [History] Meloxicam [Mobic] 15 mg PO DAILY 01/05/24 [History] Aspirin 81 mg PO BID #60 tab 01/08/24 [Rx] Diclofenac Sodium [Voltaren] 75 mg PO BID #60 tab 01/08/24 [Rx] Docusate [Colace] 100 mg PO BID #60 capsule 01/08/24 [Rx] HYDROcodone/APAP 10-325MG [[place] 10-325] 1 tab PO Q6HR PRN 3 Days #32 tab 01/08/24 [Rx] Cephalexin [Keflex] 500 mg PO Q8HR #90 cap 01/10/24 [Rx] Ferrous Sulfate [Iron (65 MG Elemental)] 325 mg PO W/LUNCH #30 tab 01/10/24 [Rx] Omeprazole 20 mg PO DAILY PRN 01/11/24 [History] Follow up Appointment(s)/Referral(s): [facility] [NON-STAFF] - As Needed Stan Cordova DO [Primary Care Provider] - 1-2 days Francisco Javier Penaloza MD [Medical Doctor] - 10 Days Activity/Diet/Wound Care/Special Instructions: Leave Prevena wound VAC in place. Wear knee immobilizer at all times except for hygiene for 1 week. After 1 week he can discontinued her knee immobilizer. Follow-up in the office 10 days following discharge for a wound check. Discharge Disposition: HOME WITH HOME HEALTH SERVICES
[2024-01-13 15:08] VITALS: BP 139/91; PULSE 93; TEMP 98.1
== END 2024-01-13 15:32 | disposition home health service (06) | DRG 920 ==
LOC: EC 14:15 → OBSVTOIN 17:52 → INTOOBSV 17:52 → 4SSUR 17:52 → OBSVTOIN 01-13 08:18 → UNDODISIN 01-13 15:32
PROVIDERS: ADMIT Orthopaedic Surgery; ATTEND Orthopaedic Surgery
DX: M96.830 Postprocedural hemorrhage of a musculoskeletal structure following a musculoskeletal system procedure (principal); Z68.41 Body mass index [BMI] 40.0-44.9, adult; Y83.4 Other reconstructive surgery as the cause of abnormal reaction of the patient, or of later complication, without mention of misadventure at the time of the procedure; I10 Essential (primary) hypertension; E78.5 Hyperlipidemia, unspecified; M25.462 Effusion, left knee; E11.9 Type 2 diabetes mellitus without complications; E66.01 Morbid (severe) obesity due to excess calories; Z96.652 Presence of left artificial knee joint; M19.90 Unspecified osteoarthritis, unspecified site; Z87.891 Personal history of nicotine dependence; Z79.899 Other long term (current) drug therapy; Z79.84 Long term (current) use of oral hypoglycemic drugs; Z79.82 Long term (current) use of aspirin; Z79.1 Long term (current) use of non-steroidal anti-inflammatories (NSAID)
CPT/HCPCS: 36415; 80053; 85025; 96365; 99285